=== PATIENT | male | born 1960 | race Caucasian/White ===

== ENCOUNTER 2017-01-07 07:29 | Outpatient (CLI) | payer MEDICAID, MEDICARE ==
[2017-01-07 18:17] LABS: BASOPHILS # (AUTO) 0.1 10^3/uL (0.0-0.1); BASOPHILS % (AUTO) 1.4 %; EOSINOPHILS # (AUTO) 0.2 10^3/uL (0.0-0.7); EOSINOPHILS % (AUTO) 2.7 %; HGB - HEMOGLOBIN 13.3 g/dL (14.0-18.0); MEAN CORPUSCULAR HEMOGLOBIN 32.5 pg (27.0-31.0); MEAN CORPUSCULAR HGB CONC 34.1 g/dL (32.0-36.0); MEAN CORPUSCULAR VOLUME 95.4 fL (80.0-94.0); MEAN PLATELET VOLUME 6.6 fL (7.4-11.4); MONOCYTES # (AUTO) 0.6 10^3/uL (0.0-1.0); MONOCYTES % (AUTO) 9.9 %; NEUTROPHILS # (AUTO) 3.1 10^3/uL (1.5-6.6); NUCLEATED RED BLOOD CELLS AUTO 0.1 /100WBC; RED BLOOD COUNT 4.09 10^6/uL (4.70-6.10); RED CELL DISTRIBUTION WIDTH 13.4 % (12.0-15.0)
[2017-01-07 18:52] LABS: ALBUMIN/GLOBULIN RATIO 1.9 (1.0-2.2); BILIRUBIN,TOTAL 0.7 mg/dL (0.2-1.0); BUN - BLOOD UREA NITROGEN 10 mg/dL (6-20); CALCIUM 9.4 mg/dL (8.5-10.3); CARBON DIOXIDE - CO2 25 mmol/L (21-32); CHLORIDE 96 mmol/L (101-111); CHOL/HDL RATIO 3.2 (<5.0); CHOLESTEROL 171 mg/dL; CREATININE 0.7 mg/dL (0.6-1.2); GFR - MDRD 116 (>89); GLUCOSE 110 mg/dL (70-100); HDL CHOLESTEROL 54 mg/dL; LDL/HDL RATIO 1.8 (<3.6); POTASSIUM 3.7 mmol/L (3.5-5.0); SODIUM 130 mmol/L (135-145); TOTAL PROTEIN 7.3 g/dL (6.7-8.2); TRIGLYCERIDES 99 mg/dL; VLDL CHOLESTEROL 20 mg/dL
== END 2017-01-07 07:30 | disposition home or self-care (01) ==
LOC: LAB.F 07:29
PROVIDERS: ATTEND Nurse Practitioner Family
DX: I10 Essential (primary) hypertension (principal); Z12.5 Encounter for screening for malignant neoplasm of prostate; D64.9 Anemia, unspecified
CPT/HCPCS: 36415; 80053; 80061; 85025; G0103; 84153

== ENCOUNTER 2017-08-27 09:54 | Outpatient (CLI) | payer MEDICARE ==
--- NOTE | 2017-08-27 12:45 | XRAY Report ---
DATE OF SERVICE: 08/27/2017 THREE VIEW RIGHT ANKLE: 08/27/2017 CLINICAL INDICATION: Pain. FINDINGS: AP, lateral, oblique views of the right ankle demonstrate no evidence of fracture or dislocation. The joint spaces are preserved. No effusion is present. IMPRESSION: NORMAL RIGHT ANKLE. TD: 08/27/2017 13:44
== END 2017-08-27 09:55 | disposition home or self-care (01) ==
LOC: DI.S 09:54
PROVIDERS: ATTEND Nurse Practitioner Family
DX: M25.571 Pain in right ankle and joints of right foot (principal)

== ENCOUNTER 2018-07-03 10:39 | Outpatient (CLI) | payer MEDICARE ==
[2018-07-03 18:05] LABS: EOSINOPHILS % (AUTO) 12.8 %; LYMPHOCYTES % (AUTO) 22.9 %; MEAN CORPUSCULAR HEMOGLOBIN 16.8 pg (27.0-31.0); MEAN CORPUSCULAR HGB CONC 29.6 g/dL (32.0-36.0); MEAN CORPUSCULAR VOLUME 56.8 fL (80.0-94.0); MEAN PLATELET VOLUME 6.4 fL (7.4-11.4); MONOCYTES % (AUTO) 5.9 %; NEUTROPHILS % (AUTO) 58.4 %; RED BLOOD COUNT 3.64 10^6/uL (4.70-6.10); RED CELL DISTRIBUTION WIDTH 22.4 % (12.0-15.0); WHITE BLOOD COUNT 11.7 x10^3/uL (4.8-10.8)
[2018-07-03 18:16] LABS: ALBUMIN 3.6 g/dL (3.2-5.5); ALBUMIN/GLOBULIN RATIO 0.9 (1.0-2.2); ALKALINE PHOSPHATASE 80 IU/L (42-121); ALT ALANINE AMINOTRANSFERASE 12 IU/L (10-60); AST ASPARTATE AMINOTRANSFERASE 16 IU/L (10-42); BILIRUBIN,TOTAL 0.4 mg/dL (0.2-1.0); BUN - BLOOD UREA NITROGEN 8 mg/dL (6-20); CALCIUM 9.1 mg/dL (8.5-10.3); CARBON DIOXIDE - CO2 22 mmol/L (21-32); CHLORIDE 98 mmol/L (101-111); CHOLESTEROL 124 mg/dL; CREATININE 0.5 mg/dL (0.6-1.2); GFR - MDRD 170 (>89); GLUCOSE 94 mg/dL (70-100); HDL CHOLESTEROL 41 mg/dL; LDL CHOLESTEROL,CALCULATED 70 mg/dL; LDL/HDL RATIO 1.7 (<3.6); SODIUM 129 mmol/L (135-145); TOTAL PROTEIN 7.4 g/dL (6.7-8.2); VLDL CHOLESTEROL 13 mg/dL
[2018-07-03 19:08] LABS: ABNORMAL LYMPHS % (MANUAL) 0 %
[2018-07-03 19:09] LABS: BAND NEUTROPHILS % (MANUAL) 9 %; BASOPHILS # (MANUAL) 0.1 10^3/uL (0-0.1); BASOPHILS % (MANUAL) 1 %; EOSINOPHILS # (MANUAL) 0.4 10^3/uL (0-0.7); LYMPHOCYTES # (MANUAL) 1.9 10^3/uL (1.5-3.5); LYMPHOCYTES % (MANUAL) 16 %; MONOCYTES # (MANUAL) 0.6 10^3/uL (0.0-1.0); NEUTROPHILS # (MANUAL) 8.8 10^3/uL (1.5-6.6); NEUTROPHILS % (MANUAL) 66 %
[2018-07-03 19:10] LABS: DIFFERENTIAL COMMENT MANUAL DIFFERENTIAL; PLATELET ESTIMATE, MANUAL INCREASED (>450,000) (NORMAL); PLATELET MORPHOLOGY 2+ GIANT PLATELETS (NORMAL)
[2018-07-03 19:24] LABS: HGB - HEMOGLOBIN 6.1 g/dL (14.0-18.0)
[2018-07-03 19:25] LABS: PLT - PLATELET COUNT 1004 10^3/uL (130-450)
== END 2018-07-03 10:40 | disposition home or self-care (01) ==
LOC: LAB.F 10:39
PROVIDERS: ATTEND Nurse Practitioner Family
DX: I10 Essential (primary) hypertension (principal); Z12.5 Encounter for screening for malignant neoplasm of prostate; D64.9 Anemia, unspecified
CPT/HCPCS: 36415; 80053; 80061; 82607; 85025; G0103; 83721; 84153

== ENCOUNTER 2018-07-06 11:21 | Observation (INO) | payer MEDICARE ==
[2018-07-06 12:02] LABS: BASOPHILS % (AUTO) 0.7 %; EOSINOPHILS % (AUTO) 0.9 %; LYMPHOCYTES % (AUTO) 20.2 %; MEAN CORPUSCULAR HEMOGLOBIN 17.1 pg (27.0-31.0); MEAN CORPUSCULAR HGB CONC 30.8 g/dL (32.0-36.0); MEAN CORPUSCULAR VOLUME 55.4 fL (80.0-94.0); MEAN PLATELET VOLUME 5.9 fL (7.4-11.4); NEUTROPHILS % (AUTO) 71.2 %; RED BLOOD COUNT 3.57 10^6/uL (4.70-6.10); RED CELL DISTRIBUTION WIDTH 22.1 % (12.0-15.0)
[2018-07-06 12:06] LABS: HGB - HEMOGLOBIN 6.1 g/dL (14.0-18.0); PLT - PLATELET COUNT 1080 10^3/uL (130-450)
[2018-07-06 12:07] LABS: ABNORMAL LYMPHS % (MANUAL) 0 %; BAND NEUTROPHILS % (MANUAL) 0 %
[2018-07-06 12:11] LABS: ALBUMIN 3.8 g/dL (3.2-5.5); BILIRUBIN,TOTAL 0.4 mg/dL (0.2-1.0); CALCIUM 8.9 mg/dL (8.5-10.3); CREATININE 0.6 mg/dL (0.6-1.2); TOTAL PROTEIN 7.6 g/dL (6.7-8.2)
--- NOTE | 2018-07-06 12:17 | ED Physician Documentation ---
PD HPI GI BLEED - Stated complaint Stated Complaint: BLOOD IN STOOL - Chief complaint Chief Complaint: General - History obtained from History obtained from: Patient - History of Present Illness Timing - onset: How many days ago (4-5) Timing - duration: Days (2) Timing - details: Abrupt onset (4-5 days ago he had an abrupt onset of large amount of bloody clots out for a day and then that seemed to taper down and has had just coffee grounds to dark appearance since then. He has a feeling of general weakness. He did not have any abdominal pain. He went to his primary care 4 days ago and had a blood count done. The results apparently just came back today showing severe anemia. He was referred to the ER. He complains of general weakness but no near syncope. He denies any history of GI bleeds in the past.) Associated symptoms: Maroon stool, Black/tarry stool Contributing factors: No: Sick contact, Bad food, Travel Improved by: No: Eating Worsened by: No: Eating Similar symptoms before: Has not had sx before, Other (He states he had a colonoscopy in 2014 with a polyp but otherwise normal. No history of GI bleeds in the past.) Review of Systems Constitutional: denies: Fever Nose: denies: Rhinorrhea / runny nose, Congestion Throat: denies: Sore throat Respiratory: denies: Cough GI: denies: Abdominal Pain, Nausea, Vomiting, Diarrhea Skin: denies: Rash, Lesions Neurologic: reports: Generalized weakness. denies: Focal weakness, Numbness, Near syncope PD PAST MEDICAL HISTORY - Past Medical History Cardiovascular: Hypertension Respiratory: Asthma Endocrine/Autoimmune: None GI: GERD, Ulcers : None HEENT:  Psych: Anxiety, Claustrophobia Musculoskeletal: None, Osteoarthritis Derm: None - Past Surgical History Past Surgical History: Yes Ortho: Other - Present Medications Home Medications: Ambulatory Orders Medication Instructions Recorded Confirmed Omeprazole [Prilosec] 20 mg PO 3-4XD 12/14/12 10/24/15 Amoxicillin 500 mg PO TID 10 Days tablet 07/14/13 Doxycycline [Vibramycin] 100 mg PO ONCE 07/14/13 07/14/13 amLODIPine [Norvasc] 5 mg PO DAILY 10/23/15 10/23/15 Cyclobenzaprine [Flexeril] 10 mg PO DAILY 10/24/15 10/24/15 Hydroxyzine HCl 50 mg PO DAILY 10/24/15 10/24/15 - Allergies Allergies/Adverse Reactions: Allergies Allergy/AdvReac Type Severity Reaction Status Date / Time No Known Drug Allergies Allergy Verified 07/14/13 20:54 - Social History Does the pt smoke?: Yes Smoking Status: Current every day smoker Does the pt drink ETOH?: Yes PD ED PE NORMAL - Vitals Vital signs reviewed: Yes - General General: Alert and oriented X 3, No acute distress, Well developed/nourished - HEENT HEENT: Pharynx benign - Neck Neck: Supple, no meningeal sign, No adenopathy - Cardiac Cardiac: RRR, No murmur - Abdomen Abdomen: Soft, Non tender - Rectal Rectal: Deferred - Back Back: No CVA TTP - Derm Derm: Warm and dry. No: Normal color (pale) - Neuro Neuro: Alert and oriented X 3, No motor deficit, Normal speech Eye Opening: Spontaneous Motor: Obeys Commands Verbal: Oriented GCS Score: 15 Results - Vitals Vitals: Vital Signs - 24 hr 07/06/18 11:32 Temperature 37.0 C Heart Rate 81 Respiratory 16 Rate Blood Pressure 141/69 H O2 Saturation 100 Oxygen O2 Source Room air - Labs Labs: Laboratory Tests 07/06/18 07/06/18 07/06/18 11:45 11:45 12:26 WBC 14.0 H RBC 3.57 L Hgb 6.1 L* Hct 19.8 L* MCV 55.4 L MCH 17.1 L MCHC 30.8 L RDW 22.1 H Plt Count 1080 H* MPV 5.9 L Neut # (Auto) Not Reportable Lymph # (Auto) Not Reportable [place] # (Auto) Not Reportable Eos # (Auto) Not Reportable Baso # (Auto) Not Reportable Absolute Nucleated RBC Not Reportable Total Counted 100 Band Neuts % (Manual) 0 Abnorm Lymph % (Manual) 0 Nucleated RBC % Not Reportable Neutrophils # (Manual) 10.5 H Lymphocytes # (Manual) 2.1 Monocytes # (Manual) 1.3 H Eosinophils # (Manual) 0.0 Basophils # (Manual) 0.1 Differential Comment MANUAL DIFFERENTIAL Platelet Estimate INCREASED (>450,000) Platelet Morphology 1+ LARGE PLATELETS RBC Morph Micro Appear 1+ OVALOCYTES Sodium 128 L Potassium 3.7 Chloride 97 L Carbon Dioxide 25 Anion Gap 6.0 BUN 12 Creatinine 0.6 Estimated GFR (MDRD) 138 Glucose 95 Calcium 8.9 Total Bilirubin 0.4 AST 16 ALT 12 Alkaline Phosphatase 74 Total Protein 7.6 Albumin 3.8 Globulin 3.8 Albumin/Globulin Ratio 1.0 Lipase 48 Urine Color YELLOW Urine Clarity CLEAR Urine pH 6.5 Ur Specific [place] 1.020 Urine Protein NEGATIVE Urine Glucose (UA) NEGATIVE Urine Ketones NEGATIVE Urine Occult Blood NEGATIVE Urine Nitrite NEGATIVE Urine Bilirubin NEGATIVE Urine Urobilinogen 0.2 (NORMAL) Ur Leukocyte Esterase NEGATIVE Ur Microscopic Review NOT INDICATED Urine Culture Comments NOT INDICATED PD MEDICAL DECISION MAKING - ED course Complexity details: considered differential (He has had GI bleed over the last several days with a significant drop in his blood count and is significantly anemic and will need transfusions. He does not have any abdominal pain. He has stable blood count compared to a few days ago but obviously had a significant bleed and I would be concerned for recurrence of that not knowing the source. Since he needs transfusion and evaluation for the source of the GI bleed, it seems reasonable to expedite that and watch for further bleeding and have scope scope evaluation. I talked with the hospitalist who will see the patient.), d/w patient Departure - Departure Disposition: ED Place in Observation Clinical Impression: Severe anemia GI bleeding Qualifiers: GI bleed type/associated pathology: unspecified gastrointestinal hemorrhage type Qualified Code(s): K92.2 - Gastrointestinal hemorrhage, unspecified Condition: Stable Record reviewed to determine appropriate education?: Yes
[2018-07-06 12:24] LABS: BASOPHILS # (MANUAL) 0.1 10^3/uL (0-0.1); BASOPHILS % (MANUAL) 1 %; LYMPHOCYTES # (MANUAL) 2.1 10^3/uL (1.5-3.5); LYMPHOCYTES % (MANUAL) 15 %; MONOCYTES # (MANUAL) 1.3 10^3/uL (0.0-1.0); NEUTROPHILS # (MANUAL) 10.5 10^3/uL (1.5-6.6); NEUTROPHILS % (MANUAL) 75 %
[2018-07-06 12:40] LABS: BILIRUBIN,URINE NEGATIVE (NEGATIVE); GLUCOSE, URINE (UA) NEGATIVE (NEGATIVE); KETONES,URINE (UA) NEGATIVE (NEGATIVE); LEUKOCYTE ESTERASE, URINE NEGATIVE (NEGATIVE); NITRITE,URINE NEGATIVE (NEGATIVE); OCCULT BLOOD,URINE NEGATIVE (NEGATIVE); PH,URINE 6.5 PH (5.0-7.5); PROTEIN,URINE NEGATIVE (NEGATIVE); UROBILINOGEN,URINE 0.2 (NORMAL) E.U./dL (NORMAL)
[2018-07-06 12:41] LABS: CLARITY,URINE CLEAR (CLEAR)
[2018-07-06] MEDS ORDERED: ONDANSETRON ODT 4 MG TABLET TL PRN (12:58)
[2018-07-06] MEDS ORDERED: ONDANSETRON 4 MG/2 ML VIAL IVP PRN (12:58)
[2018-07-06 13:13] LABS: DIFFERENTIAL COMMENT MANUAL DIFFERENTIAL; PLATELET ESTIMATE, MANUAL INCREASED (>450,000) (NORMAL); PLATELET MORPHOLOGY 1+ LARGE PLATELETS (NORMAL)
[2018-07-06 13:50] LABS: MEAN RETIC VALUE 101.7; RED BLOOD COUNT 3.6 10^6/uL (4.70-6.10)
[2018-07-06 13:59] LABS: % IRON SATURATION 2 % (20-50); IRON 9 ug/dL (45-182); TOTAL IRON BINDING CAPACITY 449 ug/dL (250-450); TRANSFERRIN 321 mg/dL (180-329)
[2018-07-06 14:22] LABS: INR 1.2 (0.8-1.2); PT - PROTHROMBIN TIME 13.4 secs (9.9-12.6)
[2018-07-06] MEDS ORDERED: FERRIC GLUCONATE 62.5 MG/5 ML VIAL IVP ONE ×2 (14:26→22:00)
[2018-07-06] MEDS ORDERED: ALBUTEROL NEB 2.5 MG/3 ML INH PRN (14:34)
--- NOTE | 2018-07-06 14:36 | HISTORY & PHYSICAL EXAMINATION ---
Chief Complaint - Chief Complaint Chief Complaint: GI rectal bleeding History of Present Illness - History of Present Illness HPI Comment/Other: Mr. Azul is 57-yrs-old male with a PMH significant for HTN, gastric ulcer, Asthma, osteoarthritis, current heavy cigarette smoker, chronic hyponatremia, who present ER for complains of GI rectal bleeding. Pt report four days ago he suddenly developed GI rectal bleeding. He report it was fresh blood and "quite a little bit." He report has hx of gastric ulcer and he continue to take Prilosec. He denies alcohol drink, any blood thinner. He state he did not aspirin as well. He report he had colonoscopy a few years ago and "it was fine, nothing is wrong." he state he did not have any symptoms after he had GI bleeding. He did not feel dizziness, palpitation, fainting, lightheaded. He denies chest pain, fever, chill, cough, shortness of breath, headache, abdominal pain, dysuria, and hemtouria. He report he still smokes cigarette about one pack per day and asks Nicotine Patch. His HGB is 6.1 in ER, plt is 1080, WBC is 14, Na is 128, other lab value are unremarkable. Pt is afebrile, hemodynamic stable. pt is admitted in observation unit for evaluation and treatment of GI rectal bleeding History - Past Medical History Cardiovascular: reports: Hypertension Respiratory: reports: Asthma Neuro: reports: None Endocrine/Autoimmune: reports: None GI: reports: GERD, Ulcers : reports: None HEENT: reports: None Psych: reports: Anxiety, Claustrophobia Musculoskeletal: reports: Osteoarthritis Derm: reports: None MRSA Hx?: No - Past Surgical History General: reports: Colonoscopy, EGD Ortho: reports: Other - Family & Social History Family History: Mother: , Cancer, Father: , CAD Family History Comment/Other: pt report he is single without child. he is living at [place]. Social History Notes: pt report he is a heavy current cigarette smoker. he denies alcohol and drug problem - POLST Patient has POLST: No Meds/Allgy - Home Medications Home Medications: Ambulatory Orders Medication Instructions Recorded Confirmed Omeprazole [Prilosec] 20 mg PO DAILY 12/14/12 10/24/15 amLODIPine [Norvasc] 5 mg PO DAILY 10/23/15 10/23/15 Cyclobenzaprine [Flexeril] 10 mg PO DAILY 10/24/15 10/24/15 Hydroxyzine HCl 50 mg PO DAILY 10/24/15 10/24/15 - Allergies Allergies/Adverse Reactions: Allergies Allergy/AdvReac Type Severity Reaction Status Date / Time No Known Drug Allergies Allergy Verified 07/14/13 20:54 Review of Systems - Constitutional Constitutional: denies: Fatigue, Fever, Chills, Malaise, Weakness, Poor appetite, Diaphoresis, Night sweats - Eyes Eyes: denies: Pain, Irritation, Amaurosis, Blurred vision, Spots in vision, Field loss, Vision loss, Dipolpia - Ears, Nose & Throat Ears, Nose & Throat: denies: Ear pain, Hearing loss, Hearing aids, Tinnitus, Vertigo, Nasal pain, Nasal discharge, Nosebleeds, Nasal obstruction, Nasal congestion, Postnasal drainage, Dentures, Sore throat, Hoarseness - Cardiovascular Cariovascular: denies: Irregular heart rate, Palpitations, Chest pain, Edema, Lightheadedness, Syncope, Exertional dyspnea, Decr. exercise tolerance - Respiratory Respiratory: denies: Cough, Sputum production, Wheezing, Snoring, Hemoptysis, Orthopnea, SOB at rest, SOB with exertion, Apnea - Gastrointestinal Gastrointestinal: reports: Rectal bleeding. denies: Abdominal pain, Abdominal distention, Constipation, Diarrhea, Change in bowel habits, Black stools, Bloody stools, Nausea, Vomiting, Bile emesis, David blood emesis, Coffee grounds emesis, Reflux/heartburn - Genitourinary Genitourinary: denies: Dysuria, Frequency, Urgency, Hematuria, Incontinence, Flank pain, Nocturia, Urethral discharge - Musculoskeletal Musculoskeletal: denies: Muscle pain, Back pain, Muscle aches, Stiffness, Limited range of motion, Muscle weakness, Gout, Joint pain - Integumentary Integumentary: denies: Rash, Lesions, Lumps, Acne, Pigment changes - Neurological Neurological: denies: General weakness, Focal weakness, Headache, Dizziness, Numbness, Memory problems, Pre-existing deficit, Abnormal gait, Seizures, Inc oordination, Slurred speech - Psychiatric Psychiatric: denies: Depression, Anxiety, Suicidal, Delusions, Hallucinations, Homicidal - Endocrine Endocrine: denies: Polyuria, Polydypsia, Polyphagia, Intolerance to cold - Hematologic/Lymphatic Hematologic/Lymphatic: reports: Anemia. denies: Bruising, Petechiae, Blood clots, Lymphadenopathy, Bleeding tendencies Prior Level of Functionality: independent Exam - Vital Signs Reviewed Vital Signs: Yes Vital Signs: Vital Signs x48h Temp Pulse Pulse Resp BP BP Pulse Ox 07/06/18 14:30 36.8 C 69 18 123/73 07/06/18 13:42 36.3 C L 71 18 131/65 H 99 07/06/18 13:30 80 18 140/70 H 99 07/06/18 11:32 37.0 C 81 16 141/69 H 100 - Physical Exam General Appearance: positive: No acute distress, Alert. negative: Lethargic Eyes Bilateral: positive: Normal inspection, PERRL, No lid inflammation, Conjunctivae nml ENT: positive: ENT inspection nml, Pharynx nml, No signs of dehydration. negative: Purulent nasal drainage, Pharyngeal erythema, Oral lesions Neck: positive: Nml inspection, Thyroid nml, No JVD, Trachea midline. negative: Thyromegaly, Lymphadenopathy (R), Lymphadenopathy (L), Stiff neck Respiratory: positive: Chest non-tender, No respiratory distress, Breath sounds nml. negative: Wheezes, Rales, Rhonchi Cardiovascular: positive: Regular rate & rhythm, No murmur, No gallop. negative: Irregularly irregular, Extrasystoles, Tachycardia, Bradycardia, JVD present, Systolic murmur, Diastolic murmur Peripheral Pulses: positive: 2+ Abdomen: negative: Non-tender, No organomegaly, Nml bowel sounds, No distention, Tenderness, Guarding, Rebound Back: positive: Nml inspection. negative: CVA tenderness (R), CVA tenderness (L) Skin: positive: Color nml, No rash, Warm, Dry. negative: Cyanosis, Diaphoresis, Pallor Extremities: positive: Non-tender, Full ROM, Nml appearance. negative: Calf tenderness, Joint swelling, Ashlee's sign/cords Neurologic/Psychiatric: positive: Oriented x3, Motor nml, Sensation nml, Mood/affect nml. negative: Weakness, Sensory loss, Facial droop, Slurred/abnml speech, Depressed mood/affect Sepsis Event Note (H) - Evaluation Current Stage of Sepsis: Ruled out Conclusion/Plan - Problem List (1) GI bleeding Conclusion/Plan: fresh rectal bleed with hx of gastric ulcer consult with GI surgeon H&H NPO after middle IVF of NS Qualifiers: GI bleed type/associated pathology: unspecified gastrointestinal hemorrhage type Qualified Code(s): K92.2 - Gastrointestinal hemorrhage, unspecified (2) Severe anemia Conclusion/Plan: pt's HGB is 6.1, it is likely from his recent GI bleeding. Pt's MCV is only 55. test Iron study transfusion of 2 unit of blood H&H, lab monitor follow up GI surgeon to have EGD on tomorrow. (3) Hx of gastric ulcer Conclusion/Plan: pt has hx of gastric ulcer, he continue to have Prilosec PO order Protonic Bid IV followup surgeon on tomorrow to have EGD (4) HTN (hypertension) Conclusion/Plan: pt's BP is stable now, will resume home meds after reconcile vital monitor (5) Hyponatremia Conclusion/Plan: pt's Na is 128 today, pt has chronic hyponatremia start IVF of NS lab monitor (6) Thrombocythemia Conclusion/Plan: pt has over 1 million Plt and elevated WBC. Unknown etiology. Thrombocythemia can cause bleeding as well. check [id number] mutation, which can cause myeloproliferative disease, and cause significant elevated Plt will followup US of abdomen to check spleen status if pt continue to have abnormal plt lab monitor, H&H (7) Full code status Conclusion/Plan: pt request full code - Lab Results Fish Bones: 07/06/18 11:45 07/06/18 11:45 Core Measures - Anticipated LOS I expect patient to be DC'd or transferred within 96 hours.: Yes - DVT/VTE - Prophylaxis VTE/DVT Device ordered at admit?: Yes VTE/DVT Prophylaxis med ordered at admit?: Yes
[2018-07-06] MEDS: SODIUM CHLORIDE 0.9% 1,000 ML IV SCH ×2 (15:08→19:56)
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
[2018-07-06] MEDS ORDERED: FERRIC GLUCONATE 125 MG in SODIUM CHLORIDE 0.9% 100ML 100 ML IV ONE (16:00)
[2018-07-06] MEDS: SODIUM CHLORIDE FLUSH 0.9% 10 ML SYRINGE IVP SCH (17:29)
[2018-07-06] MEDS: SODIUM CHLORIDE FLUSH 0.9% 10 ML SYRINGE IVP PRN ×2 (18:02→20:52)
[2018-07-06 20:20] LABS: BASOPHILS % (AUTO) 0.9 %; HGB - HEMOGLOBIN 8.3 g/dL (14.0-18.0); LYMPHOCYTES % (AUTO) 25.3 %; MEAN CORPUSCULAR HEMOGLOBIN 19.2 pg (27.0-31.0); MEAN CORPUSCULAR HGB CONC 29.8 g/dL (32.0-36.0); MEAN CORPUSCULAR VOLUME 64.5 fL (80.0-94.0); MEAN PLATELET VOLUME 5.9 fL (7.4-11.4); MONOCYTES % (AUTO) 7.5 %; NEUTROPHILS % (AUTO) 65.3 %; RED BLOOD COUNT 4.29 10^6/uL (4.70-6.10); RED CELL DISTRIBUTION WIDTH 30.6 % (12.0-15.0); WHITE BLOOD COUNT 14.2 x10^3/uL (4.8-10.8)
[2018-07-06 20:23] LABS: PLT - PLATELET COUNT 928 10^3/uL (130-450)
[2018-07-06 20:24] LABS: ABNORMAL LYMPHS % (MANUAL) 0 %; BAND NEUTROPHILS % (MANUAL) 0 %
[2018-07-06 20:43] LABS: EOSINOPHILS # (MANUAL) 0.6 10^3/uL (0-0.7); LYMPHOCYTES # (MANUAL) 2.6 10^3/uL (1.5-3.5); LYMPHOCYTES % (MANUAL) 18 %; MONOCYTES # (MANUAL) 1.3 10^3/uL (0.0-1.0); NEUTROPHILS # (MANUAL) 9.8 10^3/uL (1.5-6.6); NEUTROPHILS % (MANUAL) 69 %
[2018-07-06 20:44] LABS: DIFFERENTIAL COMMENT MANUAL DIFFERENTIAL; PLATELET ESTIMATE, MANUAL INCREASED (>450,000) (NORMAL); PLATELET MORPHOLOGY NORMAL APPEARANCE (NORMAL)
[2018-07-06] MEDS: ACETAMINOPHEN 325 MG TABLET PO PRN (20:51)
[2018-07-06] MEDS: PANTOPRAZOLE 40 MG VIAL IVP SCH (20:52)
[2018-07-06] MEDS: NICOTINE 21 MG PATCH TOP SCH (21:42)
[2018-07-06] MEDS ORDERED: ZOLPIDEM 5 MG TABLET PO PRN (21:49)
[2018-07-06 23:06] LABS: HGB - HEMOGLOBIN 7.6 g/dL (14.0-18.0)
[2018-07-07] MEDS: ACETAMINOPHEN 325 MG TABLET PO PRN ×2 (00:59→06:37)
[2018-07-07 02:29] LABS: BASOPHILS # (AUTO) 0.1 10^3/uL (0.0-0.1); BASOPHILS % (AUTO) 0.9 %; EOSINOPHILS # (AUTO) 0.2 10^3/uL (0.0-0.7); EOSINOPHILS % (AUTO) 1.9 %; HGB - HEMOGLOBIN 7.8 g/dL (14.0-18.0); LYMPHOCYTES % (AUTO) 22.8 %; MEAN CORPUSCULAR HEMOGLOBIN 19.8 pg (27.0-31.0); MEAN CORPUSCULAR HGB CONC 31.7 g/dL (32.0-36.0); MEAN CORPUSCULAR VOLUME 62.4 fL (80.0-94.0); MEAN PLATELET VOLUME 5.8 fL (7.4-11.4); MONOCYTES % (AUTO) 7.8 %; NEUTROPHILS # (AUTO) 8.6 10^3/uL (1.5-6.6); NEUTROPHILS % (AUTO) 66.6 %; RED BLOOD COUNT 3.95 10^6/uL (4.70-6.10)
[2018-07-07 02:32] LABS: PLT - PLATELET COUNT 800 10^3/uL (130-450)
[2018-07-07 03:21] LABS: PLATELET ESTIMATE, MANUAL INCREASED (>450,000) (NORMAL); PLATELET MORPHOLOGY NORMAL APPEARANCE (NORMAL)
[2018-07-07] MEDS: SODIUM CHLORIDE 0.9% 1,000 ML IV SCH ×2 (06:37→11:28)
[2018-07-07] MEDS: SODIUM CHLORIDE FLUSH 0.9% 10 ML SYRINGE IVP SCH ×2 (06:40→09:12)
[2018-07-07 06:45] LABS: BASOPHILS # (AUTO) 0.1 10^3/uL (0.0-0.1); EOSINOPHILS # (AUTO) 0.2 10^3/uL (0.0-0.7); EOSINOPHILS % (AUTO) 1.7 %; LYMPHOCYTES # (AUTO) 2.8 10^3/uL (1.5-3.5); LYMPHOCYTES % (AUTO) 22.5 %; MEAN CORPUSCULAR HEMOGLOBIN 19.7 pg (27.0-31.0); MEAN CORPUSCULAR HGB CONC 30.8 g/dL (32.0-36.0); MEAN CORPUSCULAR VOLUME 63.8 fL (80.0-94.0); MEAN PLATELET VOLUME 5.8 fL (7.4-11.4); MONOCYTES % (AUTO) 7.7 %; NEUTROPHILS # (AUTO) 8.3 10^3/uL (1.5-6.6); NEUTROPHILS % (AUTO) 67.1 %; RED BLOOD COUNT 4.08 10^6/uL (4.70-6.10); RED CELL DISTRIBUTION WIDTH 30.1 % (12.0-15.0); WHITE BLOOD COUNT 12.4 x10^3/uL (4.8-10.8)
[2018-07-07 06:47] LABS: PLT - PLATELET COUNT 829 10^3/uL (130-450)
[2018-07-07 06:52] LABS: ALBUMIN 3.1 g/dL (3.2-5.5); ALBUMIN/GLOBULIN RATIO 0.9 (1.0-2.2); BILIRUBIN,TOTAL 0.8 mg/dL (0.2-1.0); CREATININE 0.5 mg/dL (0.6-1.2); TOTAL PROTEIN 6.4 g/dL (6.7-8.2)
[2018-07-07] MEDS ORDERED: PANTOPRAZOLE 40 MG VIAL IVP SCH (07:00)
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
[2018-07-07] MEDS ORDERED: LIDO GARGLE 30 ML BOTTLE ONE (08:05)
[2018-07-07] MEDS ORDERED: SODIUM CHLORIDE 0.9% 1,000 ML IV ONE (08:06)
[2018-07-07] MEDS ORDERED: LIDO GARGLE 30 ML BOTTLE PO ONE (08:09)
--- NOTE | 2018-07-07 08:11 | PROVIDER PROGRESS NOTE ---
Assessment/Plan - Problem List (1) GI bleeding Qualifiers: GI bleed type/associated pathology: unspecified gastrointestinal hemorrhage type Qualified Code(s): K92.2 - Gastrointestinal hemorrhage, unspecified Assessment/Plan: clinically stable with no evidence of active ongoing bleeding at this time. Plan: EGD this am. - Current Meds Current Meds: Current Medications Generic Name Dose Route Start Last Admin Trade Name Freq PRN Reason Stop Dose Admin Acetaminophen 650 mg 07/06/18 12:58 07/07/18 06:37 Tylenol PO 650 mg Q4HR PRN Administration Pain 1 to 4 Sodium Chloride 1,000 mls @ 100 mls/hr 07/06/18 13:00 07/07/18 06:37 Normal Saline 0.9% IV 100 mls/hr .Q10H [facility] Administration Nicotine 1 patch 07/06/18 21:10 07/06/18 21:42 Nicoderm TOP 1 patch DAILY [facility] Administration Pantoprazole Sodium 40 mg 07/06/18 21:00 07/06/18 20:52 Protonix IVP 40 mg BID [facility] Administration Sodium Chloride 10 ml 07/06/18 12:58 07/06/18 20:52 Normal Saline Flush 0.9% IVP 10 ml PRN PRN Administration NEEDED PER PROVIDER ORDERS Sodium Chloride 10 ml 07/06/18 17:00 07/07/18 06:40 Normal Saline Flush 0.9% IVP 10 ml 0100,0900,1700 [facility] Administration Zolpidem Tartrate 5 mg 07/06/18 21:49 07/06/18 22:38 Ambien PO 5 mg QPM PRN Administration Insomnia - Lab Result Fish Bone Diagrams: 07/07/18 06:37 07/07/18 06:37 - Other Other Results/Comments: appropriate rise in H/H with blood transfusion - Additional Planning Condition/Complexity: Improved Plan Discussed with:: Patient Time Spent: 15-30 minutes Subjective - Subjective Patient Reports: Resting Comfortably, No Complaints (several nl bm's overnight; no abd pain, N/V) Objective Vital Signs: Vital Signs - 24 hr 07/06/18 07/06/18 07/06/18 11:32 13:30 13:42 Temperature 37.0 C 36.3 C L Heart Rate 81 80 Heart Rate [ 71 Brachial] Respiratory 16 18 18 Rate Blood Pressure 141/69 H 140/70 H Blood Pressure [Left Brachial artery] Blood Pressure 131/65 H [Right Brachial artery] O2 Saturation 100 99 99 07/06/18 07/06/18 07/06/18 14:30 14:35 16:00 Temperature 36.8 C 36.5 C 37 C Heart Rate 69 82 Heart Rate [ 72 Brachial] Respiratory 18 19 18 Rate Blood Pressure 123/73 125/89 H Blood Pressure 131/66 H [Left Brachial artery] Blood Pressure [Right Brachial artery] O2 Saturation 100 07/06/18 07/06/18 07/06/18 16:54 17:03 17:11 Temperature 37.0 C 37.2 C 37.2 C Heart Rate 72 82 88 Heart Rate [ Brachial] Respiratory 18 18 18 Rate Blood Pressure 135/67 H 135/67 H Blood Pressure [Left Brachial artery] Blood Pressure [Right Brachial artery] O2 Saturation 100 07/06/18 07/06/18 07/06/18 17:35 20:00 20:35 Temperature 37.4 C 36.8 C Heart Rate 77 73 72 Heart Rate [ Brachial] Respiratory 18 20 18 Rate Blood Pressure 127/58 L 120/64 Blood Pressure [Left Brachial artery] Blood Pressure [Right Brachial artery] O2 Saturation 07/07/18 07/07/18 07/07/18 00:15 05:30 07:50 Temperature 36.5 C 36.3 C L 36.7 C Heart Rate Heart Rate [ 66 63 61 Brachial] Respiratory 18 16 18 Rate Blood Pressure Blood Pressure [Left Brachial artery] Blood Pressure 122/65 124/58 L 124/69 [Right Brachial artery] O2 Saturation 97 99 98 Oxygen O2 Source Room air I&O (Last 24 Hrs): Intake and Output Totals x24h 07/05/18 07/06/18 07/07/18 23:59 23:59 23:59 Intake Total 1005 985 Output Total 775 400 Balance 230 585 General: Alert, Oriented x3, Cooperative Abdomen: Soft, No tenderness, No hepatospenomegaly, No masses - Results Results: Laboratory Results WBC 12.4 x10^3/uL (4.8-10.8) H 07/07/18 06:37 RBC 4.08 10^6/uL (4.70-6.10) L 07/07/18 06:37 Hgb 8.0 g/dL (14.0-18.0) L 07/07/18 06:37 Hct 26.0 % (42.0-52.0) L 07/07/18 06:37 MCV 63.8 fL (80.0-94.0) L 07/07/18 06:37 MCH 19.7 pg (27.0-31.0) L 07/07/18 06:37 MCHC 30.8 g/dL (32.0-36.0) L 07/07/18 06:37 RDW 30.1 % (12.0-15.0) H 07/07/18 06:37 Plt Count 829 10^3/uL (130-450) H* 07/07/18 06:37 MPV 5.8 fL (7.4-11.4) L 07/07/18 06:37 Reticulocyte % (Auto) 1.96 % (0.5-2.3) 07/06/18 11:45 Neut # (Auto) 8.6 10^3/uL (1.5-6.6) H 07/07/18 02:20 Lymph # (Auto) 3.0 10^3/uL (1.5-3.5) 07/07/18 02:20 [place] # (Auto) 1.0 10^3/uL (0.0-1.0) 07/07/18 02:20 Eos # (Auto) 0.2 10^3/uL (0.0-0.7) 07/07/18 02:20 Baso # (Auto) 0.1 10^3/uL (0.0-0.1) 07/07/18 02:20 Absolute Nucleated RBC 0.00 x10^3/uL 07/07/18 02:20 Total Counted 100 07/06/18 20:13 Band Neuts % (Manual) 0 % (0-10) 07/06/18 20:13 Abnorm Lymph % (Manual) 0 % 07/06/18 20:13 Nucleated RBC % 0.0 /100WBC 07/07/18 02:20 Neutrophils # (Manual) 9.8 10^3/uL (1.5-6.6) H 07/06/18 20:13 Lymphocytes # (Manual) 2.6 10^3/uL (1.5-3.5) 07/06/18 20:13 Monocytes # (Manual) 1.3 10^3/uL (0.0-1.0) H 07/06/18 20:13 Eosinophils # (Manual) 0.6 10^3/uL (0-0.7) 07/06/18 20:13 Basophils # (Manual) 0.0 10^3/uL (0-0.1) 07/06/18 20:13 Differential Comment MANUAL DIFFERENTIAL 07/06/18 20:13 Manual Slide Review Indicated 07/07/18 06:37 Platelet Estimate INCREASED (>450,000) (NORMAL) 07/07/18 02:20 Platelet Morphology NORMAL APPEARANCE (NORMAL) 07/07/18 02:20 RBC Morph Micro Appear 1+ ANISOCYTOSIS (NORMAL) 2+ HYPOCHROMASIA (NORMAL) 1+ OVALOCYTES (NORMAL) 07/06/18 11:45 RBC Morph Micro Appear 3+ ANISOCYTOSIS (NORMAL) 3+ HYPOCHROMASIA (NORMAL) 3+ POIKILOCYTOSIS (NORMAL) 07/06/18 20:13 RBC Morph Micro Appear 3+ ANISOCYTOSIS (NORMAL) 3+ HYPOCHROMASIA (NORMAL) 3+ POIKILOCYTOSIS (NORMAL) 07/06/18 20:13 RBC Morph Micro Appear 3+ ANISOCYTOSIS (NORMAL) 3+ HYPOCHROMASIA (NORMAL) 3+ POIKILOCYTOSIS (NORMAL) 07/06/18 20:13 RBC Morph Micro Appear 3+ ANISOCYTOSIS (NORMAL) 3+ POIKILOCYTOSIS (NORMAL) 3+ HYPOCHROMASIA (NORMAL) 07/07/18 02:20 RBC Morph Micro Appear 3+ ANISOCYTOSIS (NORMAL) 3+ POIKILOCYTOSIS (NORMAL) 3+ HYPOCHROMASIA (NORMAL) 07/07/18 02:20 RBC Morph Micro Appear 3+ ANISOCYTOSIS (NORMAL) 3+ POIKILOCYTOSIS (NORMAL) 3+ HYPOCHROMASIA (NORMAL) 07/07/18 02:20 Absolute Retic 0.071 10^6/uL (0.020-0.110) 07/06/18 11:45 PT 13.4 secs (9.9-12.6) H 07/06/18 11:45 INR 1.2 (0.8-1.2) 07/06/18 11:45 Sodium 131 mmol/L (135-145) L 07/07/18 06:37 Potassium 3.5 mmol/L (3.5-5.0) 07/07/18 06:37 Chloride 101 mmol/L (101-111) 07/07/18 06:37 Carbon Dioxide 23 mmol/L (21-32) 07/07/18 06:37 Anion Gap 7.0 (6-13) 07/07/18 06:37 BUN 7 mg/dL (6-20) 07/07/18 06:37 Creatinine 0.5 mg/dL (0.6-1.2) L 07/07/18 06:37 Estimated GFR (MDRD) 170 (>89) 07/07/18 06:37 Glucose 96 mg/dL (70-100) 07/07/18 06:37 Calcium 8.0 mg/dL (8.5-10.3) L 07/07/18 06:37 Iron 9 ug/dL (45-182) L 07/06/18 11:45 TIBC 449 ug/dL (250-450) 07/06/18 11:45 % Saturation 2 % (20-50) L 07/06/18 11:45 Transferrin 321 mg/dL (180-329) 07/06/18 11:45 Ferritin 6.0 ng/mL (23.9-336.2) L 07/06/18 11:45 Total Bilirubin 0.8 mg/dL (0.2-1.0) 07/07/18 06:37 AST 15 IU/L (10-42) 07/07/18 06:37 ALT 11 IU/L (10-60) 07/07/18 06:37 Alkaline Phosphatase 77 IU/L (42-121) 07/07/18 06:37 Lactate Dehydrogenase 90 IU/L (91-225) L 07/06/18 20:13 Total Protein 6.4 g/dL (6.7-8.2) L 07/07/18 06:37 Albumin 3.1 g/dL (3.2-5.5) L 07/07/18 06:37 Globulin 3.3 g/dL (2.1-4.2) 07/07/18 06:37 Albumin/Globulin Ratio 0.9 (1.0-2.2) L 07/07/18 06:37 Lipase 48 U/L (22-51) 07/06/18 11:45 Vitamin B12 582 pg/mL (180-914) 07/06/18 11:45 Urine Color YELLOW 07/06/18 12:26 Urine Clarity CLEAR (CLEAR) 07/06/18 12:26 Urine pH 6.5 PH (5.0-7.5) 07/06/18 12:26 Ur Specific [place] 1.020 (1.002-1.030) 07/06/18 12:26 Urine Protein NEGATIVE mg/dL (NEGATIVE) 07/06/18 12:26 Urine Glucose (UA) NEGATIVE mg/dL (NEGATIVE) 07/06/18 12:26 Urine Ketones NEGATIVE mg/dL (NEGATIVE) 07/06/18 12:26 Urine Occult Blood NEGATIVE (NEGATIVE) 07/06/18 12:26 Urine Nitrite NEGATIVE (NEGATIVE) 07/06/18 12:26 Urine Bilirubin NEGATIVE (NEGATIVE) 07/06/18 12:26 Urine Urobilinogen 0.2 (NORMAL) E.U./dL (NORMAL) 07/06/18 12:26 Ur Leukocyte Esterase NEGATIVE (NEGATIVE) 07/06/18 12:26 Ur Microscopic Review NOT INDICATED 07/06/18 12:26 Urine Culture Comments NOT INDICATED 07/06/18 12:26 Blood Type O POSITIVE 07/06/18 12:47 Antibody Screen NEGATIVE 07/06/18 12:47 Crossmatch IS Only See Detail 07/06/18 12:47 - Procedures Procedures: Procedures INSPECTION OF LOWER INTESTINAL TRACT, ENDO (10/24/15) Sepsis Event Note (H) - Evaluation Current Stage of Sepsis: Ruled out ABX Reporting Has patient been on IV antibiotics over the past 48 hours?: No
[2018-07-07] MEDS ORDERED: fentaNYL 100 MCG/2 ML VIAL IVP ONE (08:15)
[2018-07-07] MEDS ORDERED: PROPOFOL 200 MG/20 ML VIAL IVP ONE (08:15)
[2018-07-07] MEDS ORDERED: LIDOCAINE-MPF 2% 5 ML VIAL IM ONE (08:15)
[2018-07-07 08:26] LABS: PLATELET ESTIMATE, MANUAL INCREASED (>450,000) (NORMAL); PLATELET MORPHOLOGY 1+ LARGE PLATELETS (NORMAL)
[2018-07-07] MEDS ORDERED: NICOTINE 21 MG PATCH TOP SCH (09:00)
[2018-07-07] MEDS ORDERED: POLYETHYLENE GLYCOL 3350 17 GM PACKET PO SCH (09:00)
[2018-07-07] MEDS ORDERED: amLODIPine 5 MG TABLET PO SCH (09:00)
[2018-07-07] MEDS: PANTOPRAZOLE 40 MG VIAL IVP SCH (09:11)
[2018-07-07] MEDS: NICOTINE 21 MG PATCH TOP SCH (09:11)
--- NOTE | 2018-07-07 09:59 | Discharge Plan ---
Discharge Plan Disposition: 01 Home, Self Care Condition: Good Diet: Regular Activity Restrictions: No Restrictions Shower Restrictions: No Driving Restrictions: No Weight Bearing: Full Weight Additional Instructions or Follow Up instructions: You were admitted for GI bleeding. You underwent an upper endoscope procedure to search for the cause. Biopsies were taken, polyps were removed, and you can expect a call from the with those results in the next 5-7 days. Please stay on your Prilosec. An abdominal CT was completed to further evaluate a cause of your low blood counts and high platelet count. You will need to follow up with GI tomorrow in the outpatient clinic to discuss today's abdominal CT results. There was a mass found near your small bowel that will likely need to be surgically taken out and this may explain why you are loosing blood. Please see your PCP within one week. No Smoking: If you smoke, Please STOP! Call for help. Follow-up with: Allie Barrientos ARNP [Primary Care Provider] -
[2018-07-07] MEDS ORDERED: IOVERSOL 320 50 ML VIAL ONE (10:00)
[2018-07-07] MEDS ORDERED: IOVERSOL 320 100 ML VIAL IVP ONE ×2 (10:00→13:14)
--- NOTE | 2018-07-07 10:04 | DISCHARGE SUMMARY ---
Discharge Summary Admit Date: 07/06/18 Discharge Date: 07/07/18 Discharging Provider: JENARO Zapata Primary Care Provider: Allie Barrientos Code Status: Attempt Resuscitation Condition at Discharge: Good Discharge Disposition: 01 Home, Self Care - DIAGNOSES Admission Diagnoses: Gastrointestinal hemorrhage, unspecified (K92.2) Anemia, unspecified (D64.9) Personal history of other diseases of the digestive system (Z87.19) Essential (primary) hypertension (I10) Hypo-osmolality and hyponatremia (E87.1) Essential (hemorrhagic) thrombocythemia (D47.3) Discharge Diagnoses with Status of Each Condition: GI bleeding (K92.2) resolved. Severe anemia (D64.9) Likely due to recent finding of intestinal mass. Hx of gastric ulcer (Z87.19) chronic, stable. HTN (hypertension) (I10) chronic, stable. Hyponatremia (E87.1) resolved. Thrombocythemia (D47.3) ongoing, stable. Polyp of esophagus (K22.8) resolved. Abdominal mass (R19.00) new on this admission, patient is to see general surgery tomorrow. Encounter for blood transfusion (Z51.89) resolved. - HPI History of Present Illness: Mr. Azul is 57-yrs-old male with a PMH significant for HTN, gastric ulcer, Asthma, osteoarthritis, current heavy cigarette smoker, chronic hyponatremia, who present ER for complains of GI rectal bleeding. Pt report four days ago he suddenly developed GI rectal bleeding. He report it was fresh blood and "quite a little bit." He report has hx of gastric ulcer and he continue to take Prilosec. He denies alcohol drink, any blood thinner. He state he did not aspirin as well. He report he had colonoscopy a few years ago and "it was fine, nothing is wrong." he state he did not have any symptoms after he had GI bleeding. He did not feel dizziness, palpitation, fainting, lightheaded. He denies chest pain, fever, chill, cough, shortness of breath, headache, abdominal pain, dysuria, and hemtouria. He report he still smokes cigarette about one pack per day and asks Nicotine Patch. His HGB is 6.1 in ER, plt is 1080, WBC is 14, Na is 128, other lab value are unremarkable. Pt is afebrile, hemodynamic stable. pt is admitted in observation unit for evaluation and treatment of GI rectal bleeding. - CONSULTS | PROCEDURES Consultations: General surgery-Angel Mcmillan MD Procedures: EGD - HOSPITAL COURSE Hospital Course: The patient was transfused with 2 units PRBCs, continued on PPI therapy, un derwent an EGD with Dr. Mcmillan which could not explain the cause of anemia. The patient then underwent an abdominal/pelvic CT which showed a mass as the most likely cause. The patient was anxious to return home and was discharged in stable condition with plans to meet with general surgery tomorrow to address this new finding. - ALLERGIES Allergies/Adverse Reactions: Allergies Allergy/AdvReac Type Severity Reaction Status Date / Time doxycycline Allergy Severe Edema Verified 07/10/18 09:32 lisinopril Allergy Severe Unknown Verified 07/10/18 09:32 trazodone Allergy Unknown Verified 07/10/18 07:17 NSAIDS (Non-Steroidal AdvReac Intermediate Gastric Verified 07/10/18 14:36 Anti-Inflamma upset aspirin AdvReac Unknown Verified 07/10/18 07:17 NAIDS AdvReac Unknown Uncoded 07/10/18 07:18 - MEDICATIONS Home Medications: Ambulatory Orders Medication Instructions Recorded Confirmed amLODIPine [Norvasc] 5 mg PO DAILY 10/23/15 07/10/18 Cyclobenzaprine [Flexeril] 5 - 10 mg PO TID PRN 10/24/15 07/10/18 Hydroxyzine HCl 50 mg PO QPM 10/24/15 07/10/18 Acetaminophen 3 - 4 tab PO PRN PRN 07/06/18 07/10/18 Omeprazole 20 mg PO BIDAC 07/10/18 07/10/18 - PHYSICAL EXAM AT DISCHARGE General Appearance: positive: No acute distress, Alert Eyes Bilateral: positive: PERRL ENT: positive: ENT inspection nml, Pharynx nml, No signs of dehydration Neck: positive: Thyroid nml, No JVD, Trachea midline Respiratory: positive: Chest non-tender, No respiratory distress, Breath sounds nml Cardiovascular: positive: Regular rate & rhythm, No gallop, Systolic murmur Peripheral Pulses: positive: 2+ Abdomen: positive: Non-tender, Nml bowel sounds Back: positive: Nml inspection Skin: positive: No rash, Warm, Dry Extremities: positive: Non-tender, Full ROM, Nml appearance, No pedal edema Neurologic/Psychiatric: positive: Oriented x3, CN's nml (2-12), Motor nml, Sensation nml, Mood/affect nml Reflexes: Bicep (R): 3+, Bicep (L): 3+ - LABS Result Diagrams: 07/07/18 06:37 07/07/18 06:37 - DIAGNOSTIC IMAGING Diagnostic Imaging Results: Final report reviewed Diagnostic Imaging Results Comments: EXAM: CT ABDOMEN AND PELVIS WITH IV CONTRAST EXAM DATE: 07/07/2018. IMPRESSION: Large mass containing gas, fluid and oral contrast in the pelvis between the bladder and the rectum. This could be a necrotic tumor or abscess. 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 - SEPSIS Current Stage of Sepsis: Ruled out - FOLLOW UP Follow Up: Disposition: Home Additional Instructions or Follow Up instructions: You were admitted for GI bleeding. You underwent an upper endoscope procedure to search for the cause. Biopsies were taken, polyps were removed, and you can expect a call from the with those results in the next 5-7 days. Please stay on your Prilosec. An abdominal CT was completed to further evaluate a cause of your low blood counts and high platelet count. You will need to follow up with GI tomorrow in the outpatient clinic to discuss today's abdominal CT results. There was a mass found near your small bowel that will likely need to be surgically taken out and this may explain why you are loosing blood. Please see your PCP within one week. - TIME SPENT Time Spent in Discharge (Minutes): 45
[2018-07-07] MEDS ORDERED: IOVERSOL 320 50 ML VIAL PO ONE (13:14)
--- NOTE | 2018-07-07 13:24 | CT Report ---
Reason: iron deficiency anemia; neg EGD; recent neg colon Procedure Date: 07/07/2018 Accession Number: [id number] / [id number] Procedure: CT - Abdomen/Pelvis W/ CPT Code: FULL RESULT: EXAM: CT ABDOMEN AND PELVIS WITH IV CONTRAST EXAM DATE: 07/07/2018. CLINICAL HISTORY: Iron deficiency anemia; neg EGD; recent neg colon. COMPARISONS: 12/14/2012.. TECHNIQUE: Routine helical CT imaging was performed through the abdomen and pelvis. IV contrast: 90 cc of Isovue 320.. Enteric contrast: Positive oral. Reconstructions: Coronal and sagittal. In accordance with CT protocol optimization, one or more of the following dose reduction techniques were utilized for this exam: automated exposure control, adjustment of mA and/or KV based on patient size, or use of iterative reconstructive technique. FINDINGS: Lung Bases: The lungs are clear. No pleural or pericardial effusion. Liver: Normal. No masses. Gallbladder/Bile Ducts: Normal. No bile duct dilatation. Spleen: Normal. Pancreas: Normal. Adrenal Glands: Normal. Kidneys: 9 mm inferior right renal cyst occurring since the prior examination. No hydronephrosis, solid mass, or urinary tract calculi. Peritoneal Cavity/Bowel: Moderate volume of feces in the colon no small bowel dilatation or bowel wall thickening. No adenopathy. No free fluid or free air. Appendix appears normal. Pelvic Organs: Large cavitary mass containing fluid, gas and oral contrast in the pelvis interposed between the urinary bladder and the rectum, 8.0 x 6.9 x 10.8 cm. It is contiguous with what appears to be separate from the urinary bladder and the rectum. 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 No adenopathy. Very small amount of free fluid. Vasculature: Atherosclerosis of the aorta and branch arteries, no aneurysm. Bones: Degenerative changes of the spine. Anterior wedging of the T12 and L1 vertebral bodies is a developmental variant. IMPRESSION: Large mass containing gas, fluid and oral contrast in the pelvis between the bladder and the rectum. This could be a necrotic tumor or abscess. 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 RADIA
[2018-07-07 15:33] VITALS: BP 139/57
--- NOTE | 2018-07-07 16:03 | XRAY Report ---
Reason: pre-operative, cough Procedure Date: 07/07/2018 Accession Number: [id number] / [id number] Procedure: XR - Chest 2 View X-Ray CPT Code: 26565 FULL RESULT: EXAM: CHEST RADIOGRAPHY. EXAM DATE: 07/07/2018 03:43 PM. CLINICAL HISTORY: Pre-operative, cough. COMPARISON: None. TECHNIQUE: 2 views. FINDINGS: Lungs/Pleura: No focal opacities evident. No pleural effusion. No pneumothorax. Normal volumes. Mediastinum: Heart and mediastinal contours are unremarkable. Other: None. IMPRESSION: Normal 2-view chest radiography. RADIA
== END 2018-07-07 15:57 | disposition home or self-care (01) ==
LOC: ED 11:21 → MS2 12:59
PROVIDERS: ADMIT Nurse Practitioner Gerontology; ATTEND Nurse Practitioner
PROC: 0DB68ZZ Excision of Stomach, Via Natural or Artificial Opening Endoscopic (ICD-10-PCS; 2018-07-07)
PROC: 0DB38ZX Excision of Lower Esophagus, Via Natural or Artificial Opening Endoscopic, Diagnostic (ICD-10-PCS; 2018-07-07)
PROC: 0DB98ZX Excision of Duodenum, Via Natural or Artificial Opening Endoscopic, Diagnostic (ICD-10-PCS; principal; 2018-07-07 08:00)
DX: D62 Acute posthemorrhagic anemia (principal); K92.1 Melena; K31.7 Polyp of stomach and duodenum; E87.1 Hypo-osmolality and hyponatremia; D47.3 Essential (hemorrhagic) thrombocythemia; K63.9 Disease of intestine, unspecified; I10 Essential (primary) hypertension; J45.909 Unspecified asthma, uncomplicated; K21.9 Gastro-esophageal reflux disease without esophagitis; F17.210 Nicotine dependence, cigarettes, uncomplicated; G89.29 Other chronic pain; M79.661 Pain in right lower leg; Z87.11 Personal history of peptic ulcer disease; Z86.010 Personal history of colon polyps; Z79.899 Other long term (current) drug therapy; Z79.82 Long term (current) use of aspirin; Z80.0 Family history of malignant neoplasm of digestive organs; Z87.828 Personal history of other (healed) physical injury and trauma
CPT/HCPCS: 36415; 36430; 43239; 71046; 74177; 80053; 81003; 81270; 82607; 82728; 83540; 83615; 83690; 84466; 85014; 85018; 85025; 85044; 85610; 86850; 86900; 86901; 86920; 96361; 96365; 96375; 99283; 99284; A9270; G0378; J2916; P9016; Q9967; 81001; 87086

== ENCOUNTER 2018-07-10 06:12 | Inpatient (IN) | payer MEDICARE ==
[2018-07-10] MEDS ORDERED: metroNIDAZOLE 500 MG/100 ML 500 MG/100 ML BAG ONE (06:31)
--- NOTE | 2018-07-10 06:54 | ANESTHESIA ---
Pre-Anesthesia VS, & Labs - Diagnosis Intra-abdominal mass - Procedure Diagnostic laparoscopy, possible open, excision intra-abdominal mass Vital Signs: Temp Pulse Resp BP Pulse Ox 37 C 78 18 126/67 98 07/10/18 06:46 07/10/18 06:46 07/10/18 06:46 07/10/18 06:46 07/10/18 06:46 Height 5 ft 6 in Body Mass Index 18.3 - NPO >8 hours Last Fluid Intake: sipsH20 with meds - Lab Results Lab results reviewed: Yes Home Medications and Allergies amLODIPine [Norvasc] 5 mg PO DAILY 10/23/15 Cyclobenzaprine [Flexeril] 10 mg PO DAILY 10/24/15 Hydroxyzine HCl 50 mg PO DAILY 10/24/15 Acetaminophen 3 - 4 tab PO PRN PRN 07/06/18 Allergies/Adverse Reactions: Allergies Allergy/AdvReac Type Severity Reaction Status Date / Time No Known Drug Allergies Allergy Verified 07/14/13 20:54 Anes History & Medical History - Anesthetic History Anesthesia Complications: reports: No previous complications Family history of Anesthesia Complications: Denies Family history of Malignant Hyperthermia: Denies - Medical History Cardiovascular: reports: Hypertension Pulmonary: reports: Asthma, COPD Gastrointestinal: reports: GERD, Ulcers, Colon polyps, Chronic diarrhea, Chronic constipation Urinary: reports: None Neuro: reports: None Musculoskeletal: reports: Osteoarthritis Endocrine/Autoimmune: reports: None Blood Disorders: reports: Anemia Skin: reports: None Smoking Status: Current every day smoker (1/2pk for 40 years) - Surgical History General: Colonoscopy, EGD Orthopedic: Other Exam General: Alert, Oriented x3, Cooperative Dental: Poor dentition (nearly all missing. front bottom teeth remain in poor condition) Mouth Openin Fingerbreadth Neck Mobility: Normal Mallampati classification: II Thyromental Distance: 4-6 cm Respiratory: Lungs clear, Normal breath sounds, No respiratory distress Cardiovascular: Regular rate Neurological: Normal speech Mental/Cognitive Status: Alert/Oriented X3 Cognitive Status: Within normal limits Plan Anesthesia Type: General Regional Block: Per Surgeon's request for Post Op pain control Consent for Procedure(s) Verified and Reviewed: Yes Code Status: Attempt Resuscitation ASA classification: 2-Mild systemic disease Is this case an emergency?: No
[2018-07-10] MEDS ORDERED: LACTATED RINGERS 1,000 ML IV ONE ×3 (07:06→14:00)
[2018-07-10] MEDS ORDERED: BUPIVACAINE 0.5%-EPI 1:200000 PF 30 ML VIAL ONE (07:21)
[2018-07-10] MEDS ORDERED: LIDOCAINE 1% 50 ML MDV ONE (07:22)
[2018-07-10 07:25] LABS: BASOPHILS # (AUTO) 0.1 10^3/uL (0.0-0.1); BASOPHILS % (AUTO) 0.7 %; EOSINOPHILS # (AUTO) 0.2 10^3/uL (0.0-0.7); EOSINOPHILS % (AUTO) 1.2 %; HGB - HEMOGLOBIN 8.6 g/dL (14.0-18.0); LYMPHOCYTES # (AUTO) 2.8 10^3/uL (1.5-3.5); LYMPHOCYTES % (AUTO) 18.8 %; MEAN CORPUSCULAR HEMOGLOBIN 20.3 pg (27.0-31.0); MEAN CORPUSCULAR HGB CONC 32.3 g/dL (32.0-36.0); MEAN CORPUSCULAR VOLUME 62.9 fL (80.0-94.0); MEAN PLATELET VOLUME 5.9 fL (7.4-11.4); MONOCYTES # (AUTO) 1.2 10^3/uL (0.0-1.0); MONOCYTES % (AUTO) 7.9 %; NEUTROPHILS # (AUTO) 10.5 10^3/uL (1.5-6.6); NEUTROPHILS % (AUTO) 71.4 %; RED BLOOD COUNT 4.24 10^6/uL (4.70-6.10); RED CELL DISTRIBUTION WIDTH 32.4 % (12.0-15.0); WHITE BLOOD COUNT 14.8 x10^3/uL (4.8-10.8)
[2018-07-10 07:36] LABS: PLT - PLATELET COUNT 977 10^3/uL (130-450)
[2018-07-10 08:22] LABS: PLATELET MORPHOLOGY 1+ LARGE PLATELETS (NORMAL)
[2018-07-10 08:23] LABS: PLATELET ESTIMATE, MANUAL INCREASED (>450,000) (NORMAL)
[2018-07-10] MEDS ORDERED: LIDOCAINE 1% 50 ML MDV SUBQ ONE (09:30)
[2018-07-10] MEDS ORDERED: BUPIVACAINE 0.5%-EPI 1:200000 PF 30 ML VIAL SUBQ ONE (09:30)
[2018-07-10] MEDS ORDERED: LABETALOL 5 MG/1 ML 20 ML MDV IV ONE (11:02)
[2018-07-10] MEDS ORDERED: ONDANSETRON 4 MG/2 ML VIAL IVP ONE (11:02)
[2018-07-10] MEDS ORDERED: PHENYLEPHRINE 50 MG/5 ML VIAL IV ONE (11:02)
[2018-07-10] MEDS ORDERED: HYDROmorphone 1 MG/ML CARPUJECT IVP ONE (11:02)
[2018-07-10] MEDS ORDERED: MIDAZOLAM 2 MG/2 ML VIAL IVP ONE (11:02)
[2018-07-10] MEDS ORDERED: fentaNYL 250 MCG/5 ML VIAL IVP ONE (11:02)
[2018-07-10] MEDS ORDERED: KETAMINE 500 MG/10 ML VIAL IVP ONE (11:02)
[2018-07-10] MEDS ORDERED: PROPOFOL 200 MG/20 ML VIAL IVP ONE (11:02)
[2018-07-10] MEDS ORDERED: SODIUM CHLORIDE 0.9% 10 ML VIAL IV ONE (11:02)
[2018-07-10] MEDS ORDERED: BUPIVACAINE 0.25% PF 10 ML VIAL SUBQ ONE (11:02)
[2018-07-10] MEDS ORDERED: VECURONIUM 10 MG VIAL IVP ONE (11:02)
[2018-07-10] MEDS ORDERED: DEXAMETHASONE 4 MG/ML VIAL IVP ONE (11:02)
[2018-07-10] MEDS ORDERED: ONDANSETRON 4 MG/2 ML VIAL IVP PRN ×2 (12:31→13:28)
[2018-07-10] MEDS: fentaNYL 100 MCG/2 ML VIAL ONE ×2 (12:40→12:45)
--- NOTE | 2018-07-10 12:43 | OPERATIVE REPORT ---
Operative Report - General Admit Date: 07/10/18 Procedure Date: 07/10/18 Planned Procedure: laparoscopic/possible open resection of intra-abdominal mass Pre-Op Diagnosis: cavitary intra-abdominal mass Procedure Performed: Diagnostic laparoscopy with lysis of adhesions. Exploratory laparotomy, with resection of mass, including small bowel resection. Post Op Diagnosis: cavitary intra-abdominal mass arising from the small intestine - Procedure Note Primary Surgeon: Angel Mcmillan MD FACS Secondary Surgeon: Donato White MD FACS Anesthesia Provider: Patito Marino CRNA Anesthesia Technique: General ET tube Pathology: mass including segment of distal jejunum; with sample sent in RPMI solution. IV Fluids (mL): 1,500 Estimated Blood Loss (mL): 400 Urine Output (mL): 100 Drain/Tube Type: Other (none) Complications: None
[2018-07-10] MEDS ORDERED: fent/BUPIV 2 MCG/0.125% 250 ML EP ONE (13:07)
[2018-07-10] MEDS ORDERED: NALBUPHINE 10 MG/ML AMP IVP PRN (13:28)
[2018-07-10] MEDS ORDERED: fent/BUPIV 2 MCG/0.125% 250 ML EP PRN (13:28)
[2018-07-10] MEDS ORDERED: KETOROLAC 15 MG/ML VIAL ONE (13:33)
[2018-07-10] MEDS ORDERED: ePHEDrine 50 MG/ML VIAL IVP ONE (13:38)
[2018-07-10] MEDS ORDERED: SODIUM CHLORIDE 0.9% 10 ML ONE (13:40)
--- NOTE | 2018-07-10 14:48 | OPERATIVE REPORT ---
DATE OF SERVICE: 07/10/2018 Physician: Angel Mcmillan MD PREOPERATIVE DIAGNOSIS: Cavitary intra-abdominal mass. POSTOPERATIVE DIAGNOSIS: Cavitary intraabdominal mass closure arising from the distal jejunum. PROCEDURE PERFORMED 1. Diagnostic laparoscopy with lysis of adhesions. 2. Exploratory laparotomy with resection of the cavitary intra-abdominal mass, including small bowel resection. ANESTHESIA PROVIDER: General endotracheal by Patito Marino CRNA. SURGEON: Angel Mcmillan MD FACS [employer] WORKER: Donato White MD FACS ESTIMATED BLOOD LOSS: 400 mL, replaced 1500 mL crystalloid solution. COMPLICATIONS: None. FINDINGS: Laparoscopy was notable for a mass arising from the pelvis adherent to both pelvic sidewalls and the bladder, and appearing to arise from the small intestine. The visualized portions of the liver, stomach, and remainder of small and large bowel appeared normal. At laparotomy, the tumor was seen to be smooth walled with a visible capsule, arising from the distal jejunum and densely adherent to surrounding structures in the pelvis, including the bladder anteriorly, the rectosigmoid colon posteriorly, and the pelvic sidewalls laterally. During the dissection of the mass out of the pelvis, despite deliberate care to avoid this, the cavitary lesion ruptured and contents were evacuated. 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 There was no evidence of lymphadenopathy or liver metastasis, ascites or omental implants. No peritoneal implants were noted as well. The mass itself appeared to measure approximately 12 cm in greatest dimension. INDICATIONS FOR PROCEDURE: Patient is a 57-year-old gentleman who recently presented to [facility] with profound anemia, but he had had a prior colonoscopy several years ago that was favorable. Evaluation included upper GI endoscopy, which showed evidence of Riojas's esophagus but no obvious source of blood loss. The CT scan of the abdomen/pelvis showed a cavitary lesion in the pelvis thought to be well encapsulated and arising from the small intestine. He was advised to undergo diagnostic laparoscopy with laparoscopic-assisted versus possible open resection for definitive diagnosis and local therapy. TECHNIQUE: After informed consent and preoperative preparation, including application of sequential calf compression boots and administration of 2 grams of cefoxitin and 500 mg of metronidazole intravenously, patient was taken to the operating room and was placed under general endotracheal anesthesia. Preoperative preparation also included mechanical bowel preparation. He was placed in low stirrups, and orogastric and Gallardo catheters were inserted. His abdomen was clipped and prepared with ChloraPrep solution and draped in the usual sterile fashion. A 2 cm infraumbilical midline incision was made and carried down through the layers of the abdominal wall until the peritoneum was identified and entered sharply. A 10 mm Isaak cannula was inserted and pneumoperitoneum achieved with carbon dioxide. A 10 mm 30-degree Zak telescope was inserted. Three 5 mm ports were additionally placed in right and left mid abdomen and suprapubic locations. The abdomen was explored laparoscopically with findings noted above. Attempts were made to mobilize the tumor laparoscopically by lysing adhesions between the tumor and the wall of the bladder and the pelvic sidewall; however, the tumor seemed to be fixed in the pelvis, and it was felt that conversion to an open procedure would be warranted. Therefore, instruments and cannulas were removed under direct vision, pneumoperitoneum was allowed to escape, and the incision was extended to the pubis for a full lower midline incision, carried down through the layers of the abdominal wall. Hemostasis achieved with electrocautery, the LigaSure device and suture ligatures. The abdomen was manually explored. Findings were confirmed. The mass was gently and carefully dissected free from the pelvic sidewalls and the bladder. The mass was seen to arise from a loop of jejunum. The jejunum was divided proximally and distally to the tumor with approximately 6 cm margins proximally and distally with the 75 mm linear cutting and stapling device. This allowed posterior exposure of the mass where it was seen to be adherent to the serosa of the rectosigmoid colon. This area was carefully dissected. The tumor was seen to be adherent to the serosa, but not invading into the wall of the large bowel. During mobilization of the tumor from the right pelvic sidewall, the cavity was entered, contents were evacuated, and the resection continued. The tumor was eventually completely resected and sent for pathologic evaluation. What appeared to be a residual portion of the tumor was then seen to be adherent to the serosa of the rectosigmoid junction. This was excised with electrocautery to complete the gross resection of the tumor. A morcellated sample of the tumor was placed in RPMI solution with the bulk of the tumor placed in formalin and sent to Pathology. Approximately one hour was spent mobilizing and resecting the tumor from the pelvis. After careful hemostasis had been assured, the wound was irrigated with antibiotic solution containing 1 gram of cefoxitin per liter. The small bowel resection was completed by performing an anastomosis using the 75 mm linear cutting/stapling device to create a [id number], but functional end-to-end anastomosis in the usual fashion. The mesenteric defect was reapproximated with interrupted 3-0 Vicryl sutures. The anastomosis seemed to be watertight, patent, and viable. Again, after hemostasis been assured with electrocautery and the Ligasure device, the abdominal cavity was copiously irrigated with sterile water, following which, abdominal contents returned to usual anatomic location, and the incision was closed in layers using continuous 0 Vicryl to reapproximate the peritoneum and posterior rectus sheath, followed by doubled #1 PDS for the anterior rectus sheath and midline fascia, followed by skin ria. The port sites were closed with skin ria. Dry sterile dressings were applied, anesthesia was terminated, and patient transferred to the recovery room in satisfactory condition. Sponge and needle counts were correct x2. No drains were used. TD: 07/10/2018 13:12 LONNY
[2018-07-10] MEDS: LACTATED RINGERS 1,000 ML IV SCH (14:53)
[2018-07-10] MEDS: ACETAMINOPHEN 1,000 MG/100 ML 100 ML IV SCH ×2 (14:53→21:19)
[2018-07-10] MEDS: SODIUM CHLORIDE FLUSH 0.9% 10 ML SYRINGE IVP SCH (15:45)
[2018-07-10] MEDS: PANTOPRAZOLE 40 MG TABLET PO SCH (15:45)
[2018-07-10 17:41] LABS: BASOPHILS % (AUTO) 0.1 %; LYMPHOCYTES % (AUTO) 4.3 %; MEAN CORPUSCULAR HEMOGLOBIN 19.6 pg (27.0-31.0); MEAN CORPUSCULAR HGB CONC 30.2 g/dL (32.0-36.0); MEAN PLATELET VOLUME 5.9 fL (7.4-11.4); MONOCYTES % (AUTO) 3.2 %; NEUTROPHILS % (AUTO) 92.4 %; PLT - PLATELET COUNT 796 10^3/uL (130-450); RED BLOOD COUNT 3.58 10^6/uL (4.70-6.10); RED CELL DISTRIBUTION WIDTH 31.8 % (12.0-15.0); WHITE BLOOD COUNT 20.1 x10^3/uL (4.8-10.8)
[2018-07-10 17:46] LABS: ABNORMAL LYMPHS % (MANUAL) 0 %
[2018-07-10 18:39] LABS: BAND NEUTROPHILS % (MANUAL) 18 %; LYMPHOCYTES # (MANUAL) 0.2 10^3/uL (1.5-3.5); LYMPHOCYTES % (MANUAL) 1 %; MONOCYTES # (MANUAL) 0.8 10^3/uL (0.0-1.0); NEUTROPHILS # (MANUAL) 19.1 10^3/uL (1.5-6.6); NEUTROPHILS % (MANUAL) 77 %; PLATELET MORPHOLOGY NORMAL APPEARANCE (NORMAL)
[2018-07-10 18:40] LABS: DIFFERENTIAL COMMENT MANUAL DIFFERENTIAL; PLATELET ESTIMATE, MANUAL INCREASED (>450,000) (NORMAL)
[2018-07-11] MEDS: SODIUM CHLORIDE FLUSH 0.9% 10 ML SYRINGE IVP SCH ×4 (01:29→23:59)
[2018-07-11] MEDS: KETOROLAC 15 MG/ML VIAL IVP PRN ×3 (02:59→19:43)
[2018-07-11] MEDS: SODIUM CHLORIDE FLUSH 0.9% 10 ML SYRINGE IVP PRN (02:59)
[2018-07-11] MEDS: LACTATED RINGERS 1,000 ML IV SCH (03:15)
[2018-07-11] MEDS: ACETAMINOPHEN 1,000 MG/100 ML 100 ML IV SCH ×4 (03:17→22:05)
[2018-07-11 06:33] LABS: BASOPHILS % (AUTO) 0.5 %; EOSINOPHILS % (AUTO) 0.1 %; HGB - HEMOGLOBIN 7.1 g/dL (14.0-18.0); LYMPHOCYTES % (AUTO) 9.9 %; MEAN CORPUSCULAR HEMOGLOBIN 21.2 pg (27.0-31.0); MEAN CORPUSCULAR HGB CONC 31.7 g/dL (32.0-36.0); MEAN CORPUSCULAR VOLUME 66.9 fL (80.0-94.0); MONOCYTES % (AUTO) 4.1 %; NEUTROPHILS % (AUTO) 85.4 %; PLT - PLATELET COUNT 636 10^3/uL (130-450); RED BLOOD COUNT 3.36 10^6/uL (4.70-6.10); RED CELL DISTRIBUTION WIDTH 33.4 % (12.0-15.0); WHITE BLOOD COUNT 14.4 x10^3/uL (4.8-10.8)
[2018-07-11] MEDS: PANTOPRAZOLE 40 MG TABLET PO SCH (06:33)
[2018-07-11 06:36] LABS: ABNORMAL LYMPHS % (MANUAL) 0 %
[2018-07-11 06:40] LABS: ALBUMIN 2.7 g/dL (3.2-5.5); ALBUMIN/GLOBULIN RATIO 0.9 (1.0-2.2); ALKALINE PHOSPHATASE 62 IU/L (42-121); ALT ALANINE AMINOTRANSFERASE < 10 IU/L (10-60); AST ASPARTATE AMINOTRANSFERASE 15 IU/L (10-42); BILIRUBIN,TOTAL 0.8 mg/dL (0.2-1.0); BUN - BLOOD UREA NITROGEN 13 mg/dL (6-20); CALCIUM 7.3 mg/dL (8.5-10.3); CARBON DIOXIDE - CO2 22 mmol/L (21-32); CHLORIDE 96 mmol/L (101-111); CREATININE 0.6 mg/dL (0.6-1.2); GFR - MDRD 138 (>89); GLUCOSE 121 mg/dL (70-100); SODIUM 127 mmol/L (135-145); TOTAL PROTEIN 5.6 g/dL (6.7-8.2)
[2018-07-11 06:58] LABS: BAND NEUTROPHILS % (MANUAL) 9 %; EOSINOPHILS # (MANUAL) 0.1 10^3/uL (0-0.7); LYMPHOCYTES % (MANUAL) 7 %; MONOCYTES # (MANUAL) 0.7 10^3/uL (0.0-1.0); NEUTROPHILS # (MANUAL) 12.5 10^3/uL (1.5-6.6); NEUTROPHILS % (MANUAL) 78 %
[2018-07-11 06:59] LABS: PLATELET ESTIMATE, MANUAL INCREASED (>450,000) (NORMAL)
[2018-07-11 07:00] LABS: DIFFERENTIAL COMMENT MANUAL DIFFERENTIAL
--- NOTE | 2018-07-11 09:29 | PROVIDER PROGRESS NOTE ---
Subjective - General Admit Date: 07/10/18 Procedure Date: 07/10/18 Post Op Days: 1 Procedure Performed: resection of pelvic mass - Review of Systems Wound/Incisions: positive: Healing well, Dressing dry and intact, No drainage General: positive: Appetite (returning), Other. negative: Fever, Weakness HEENT: positive: No symptoms Pulmonary: positive: No symptoms Cardiovascular: positive: No symptoms Gastrointestinal: positive: Abdominal pain (c/o moderate incisional pain), Other (no bm's yet). negative: Nausea, Vomiting, Flatus Genitourinary: positive: No symptoms Musculoskeletal: positive: Shoulder pain (bilateral) Skin: positive: No symptoms Psychiatric: positive: No symptoms Objective - Patient Data Reviewed Vital Signs: Yes Vital Signs: Vital Signs x48h Temp Pulse Resp BP Pulse Ox 07/11/18 07:47 36.6 C 68 14 107/53 L 96 07/11/18 05:18 18 102/48 L 94 07/11/18 03:51 36.7 C 62 18 97/63 95 07/11/18 02:00 36.2 C L 62 18 101/56 L 96 Weight: Weight 07/09/18 07/10/18 07/11/18 23:59 23:59 23:59 Weight (kg) 55.7 kg Intake & Output: Intake and Output Totals x24h 07/09/18 07/10/18 07/11/18 23:59 23:59 23:59 Intake Total 2700 1300 Output Total 760 200 Balance 1940 1100 u.o. ok - Lab Results Lab Results: 07/11/18 06:06 07/11/18 06:06 Other Lab Results: Lab Results x24hrs 07/11/18 07/11/18 07/10/18 Range/Units 06:06 06:06 17:14 WBC 14.4 H 20.1 H (4.8-10.8) x10^3/uL RBC 3.36 L 3.58 L (4.70-6.10) 10^6/uL Hgb 7.1 L 7.0 L* (14.0-18.0) g/dL Hct 22.5 L 23.2 L (42.0-52.0) % MCV 66.9 L 65.0 L (80.0-94.0) fL MCH 21.2 L 19.6 L (27.0-31.0) pg MCHC 31.7 L 30.2 L (32.0-36.0) g/dL RDW 33.4 H 31.8 H (12.0-15.0) % Plt Count 636 H 796 H (130-450) 10^3/uL MPV 6.0 L 5.9 L (7.4-11.4) fL Neut # (Auto) Not Reportable Not Reportable Lymph # (Auto) Not Reportable Not Reportable [place] # (Auto) Not Reportable Not Reportable Eos # (Auto) Not Reportable Not Reportable Baso # (Auto) Not Reportable Not Reportable Absolute Nucleated RBC Not Reportable Not Reportable Total Counted 100 100 Band Neuts % (Manual) 9 18 H (0 - 10) % Abnorm Lymph % (Manual) 0 0 % Nucleated RBC % Not Reportable Not Reportable Neutrophils # (Manual) 12.5 H 19.1 H (1.5-6.6) 10^3/uL Lymphocytes # (Manual) 1.0 L 0.2 L (1.5-3.5) 10^3/uL Monocytes # (Manual) 0.7 0.8 (0.0-1.0) 10^3/uL Eosinophils # (Manual) 0.1 0.0 (0-0.7) 10^3/uL Basophils # (Manual) 0.0 0.0 (0-0.1) 10^3/uL Differential Comment MANUAL DIFFERENTIAL MANUAL DIFFERENTIAL Manual Slide Review Indicated WBC Morphology NORMAL APPEARANCE (NORMAL) Platelet Estimate INCREASED (>450,000) INCREASED (>450,000) (NORMAL) Platelet Morphology NORMAL APPEARANCE (NORMAL) RBC Morph Micro Appear 1+ SCHISTOCYTES 1+ SCHISTOCYTES (NORMAL) Sodium 127 L (135-145) mmol/L Potassium 3.4 L (3.5-5.0) mmol/L Chloride 96 L (101-111) mmol/L Carbon Dioxide 22 (21-32) mmol/L Anion Gap 9.0 (6-13) BUN 13 (6-20) mg/dL Creatinine 0.6 (0.6-1.2) mg/dL Estimated GFR (MDRD) 138 (>89) Glucose 121 H (70-100) mg/dL Calcium 7.3 L (8.5-10.3) mg/dL Total Bilirubin 0.8 (0.2-1.0) mg/dL AST 15 (10-42) IU/L ALT < 10 L (10-60) IU/L Alkaline Phosphatase 62 (42-121) IU/L Total Protein 5.6 L (6.7-8.2) g/dL Albumin 2.7 L (3.2-5.5) g/dL Globulin 2.9 (2.1-4.2) g/dL Albumin/Globulin Ratio 0.9 L (1.0-2.2) Blood Type Antibody Screen Crossmatch IS Only 07/10/18 Range/Units 08:25 WBC (4.8-10.8) x10^3/uL RBC (4.70-6.10) 10^6/uL Hgb (14.0-18.0) g/dL Hct (42.0-52.0) % MCV (80.0-94.0) fL MCH (27.0-31.0) pg MCHC (32.0-36.0) g/dL RDW (12.0-15.0) % Plt Count (130-450) 10^3/uL MPV (7.4-11.4) fL Neut # (Auto) Lymph # (Auto) [place] # (Auto) Eos # (Auto) Baso # (Auto) Absolute Nucleated RBC Total Counted Band Neuts % (Manual) (0 - 10) % Abnorm Lymph % (Manual) % Nucleated RBC % Neutrophils # (Manual) (1.5-6.6) 10^3/uL Lymphocytes # (Manual) (1.5-3.5) 10^3/uL Monocytes # (Manual) (0.0-1.0) 10^3/uL Eosinophils # (Manual) (0-0.7) 10^3/uL Basophils # (Manual) (0-0.1) 10^3/uL Differential Comment Manual Slide Review WBC Morphology (NORMAL) Platelet Estimate (NORMAL) Platelet Morphology (NORMAL) RBC Morph Micro Appear (NORMAL) Sodium (135-145) mmol/L Potassium (3.5-5.0) mmol/L Chloride (101-111) mmol/L Carbon Dioxide (21-32) mmol/L Anion Gap (6-13) BUN (6-20) mg/dL Creatinine (0.6-1.2) mg/dL Estimated GFR (MDRD) (>89) Glucose (70-100) mg/dL Calcium (8.5-10.3) mg/dL Total Bilirubin (0.2-1.0) mg/dL AST (10-42) IU/L ALT (10-60) IU/L Alkaline Phosphatase (42-121) IU/L Total Protein (6.7-8.2) g/dL Albumin (3.2-5.5) g/dL Globulin (2.1-4.2) g/dL Albumin/Globulin Ratio (1.0-2.2) Blood Type Cancelled Antibody Screen Cancelled Crossmatch IS Only See Detail Labs today after transfusion of 1 unit PRBCs last night. - Current Medications Current Medications: Current Medications Generic Name Dose Route Start Last Admin Trade Name Freq PRN Reason Stop Dose Admin Acetaminophen 100 mls @ 400 mls/hr 07/10/18 15:00 07/11/18 03:32 Ofirmev IV Infused Q6H BRAYDEN Infusion Fentanyl/Bupivacaine/Sodium Chlor 250 mls @ 0 mls/hr 07/10/18 13:28 07/10/18 15:33 Fent/Bupiv 2 Mcg/0.125% EP 6 mls/hr .Q0M PRN Administration PAIN Protocol Per Protocol Ketorolac Tromethamine 15 mg 07/10/18 12:31 07/11/18 02:59 Toradol Inj (15mg) IVP 07/15/18 12:30 15 mg Q6H PRN Administration PAIN Pantoprazole Sodium 40 mg 07/10/18 16:30 07/11/18 06:33 Protonix PO 40 mg QDAC BRAYDEN Administration Sodium Chloride 10 ml 07/10/18 17:00 07/11/18 01:29 Normal Saline Flush 0.9% IVP 10 ml 0100,0900,1700 BRAYDEN Administration Sodium Chloride 10 ml 07/10/18 12:31 07/11/18 02:59 Normal Saline Flush 0.9% IVP 10 ml PRN PRN Administration NEEDED PER PROVIDER ORDERS - Physical Exam Wound/Incisions: positive: Dressing dry and intact (minimal sanguinous discharge on dressing) General Appearance: positive: Alert, Mild distress (c/o shoulder pain) Eyes Bilateral: positive: Conjunctivae nml, No scleral icterus ENT: positive: ENT inspection nml, Pharynx nml, No signs of dehydration Neck: positive: Nml inspection, No JVD Respiratory: positive: Chest non-tender, No respiratory distress, Breath sounds nml Cardiovascular: positive: Regular rate & rhythm, No murmur, No gallop Abdomen: positive: Nml bowel sounds, No distention, Tenderness (expected lam- incisional tenderness) Skin: positive: Color nml, No rash, Warm, Dry Extremities: positive: Non-tender, Nml appearance, No pedal edema. negative: Calf tenderness Neurologic/Psychiatric: positive: Oriented x3 Comments/Other: Alert, tolerating clear liquids well with no N/V. No flatus/stool yet. ABX Reporting Has patient been on IV antibiotics over the past 48 hours?: No Impression/Plan - Problem List Problem List: PO Day 1 s/p resection of pelvic cavitary mass arising from the jejunum; doing well overall. Plan: d/c IVF, sands; advance diet, oob more, pulmonary toilet, adjust epidural dosing for better analgesia.
[2018-07-11] MEDS: ENOXAPARIN 40 MG/0.4 ML SYRINGE SUBQ SCH (09:52)
[2018-07-11] MEDS: fent/BUPIV 2 MCG/0.125% 250 ML EP PRN (10:36)
--- NOTE | 2018-07-11 10:39 | ANESTHESIA POST OP EVALUATION ---
Anesthesia Post Eval - Post Anesthesia Eval CV Function Including HR & BP: positive: Stable Pain Control: positive: Additional Therapies Ordered Nausea & Vomiting: positive: Negative Mental Status: positive: Appropriate Anesthesia Complications: positive: None (the patient has had pain requiring additional pain meds. Dr Mcmillan requestsd increasing the rate of the epidural. the rate was increased from 6ml/hr to 12ml/hr and the hour limit was increased from 26ml/hr to 34ml/hr.)
[2018-07-12] MEDS: fent/BUPIV 2 MCG/0.125% 250 ML EP PRN ×2 (02:49→21:33)
[2018-07-12] MEDS: ACETAMINOPHEN 1,000 MG/100 ML 100 ML IV SCH (03:57)
[2018-07-12] MEDS: PANTOPRAZOLE 40 MG TABLET PO SCH (06:32)
[2018-07-12 06:35] LABS: BASOPHILS # (AUTO) 0.1 10^3/uL (0.0-0.1); BASOPHILS % (AUTO) 0.6 %; EOSINOPHILS # (AUTO) 0.1 10^3/uL (0.0-0.7); EOSINOPHILS % (AUTO) 0.5 %; LYMPHOCYTES % (AUTO) 8.1 %; MEAN CORPUSCULAR HEMOGLOBIN 21.3 pg (27.0-31.0); MEAN CORPUSCULAR HGB CONC 31.8 g/dL (32.0-36.0); MEAN CORPUSCULAR VOLUME 66.9 fL (80.0-94.0); MEAN PLATELET VOLUME 6.3 fL (7.4-11.4); MONOCYTES # (AUTO) 0.7 10^3/uL (0.0-1.0); MONOCYTES % (AUTO) 6.1 %; NEUTROPHILS % (AUTO) 84.7 %; PLT - PLATELET COUNT 540 10^3/uL (130-450); RED BLOOD COUNT 3.01 10^6/uL (4.70-6.10); RED CELL DISTRIBUTION WIDTH 33.3 % (12.0-15.0); WHITE BLOOD COUNT 11.8 x10^3/uL (4.8-10.8)
[2018-07-12 06:40] LABS: ALBUMIN 2.6 g/dL (3.2-5.5); ALBUMIN/GLOBULIN RATIO 0.9 (1.0-2.2); BILIRUBIN,TOTAL 0.5 mg/dL (0.2-1.0); CREATININE 0.7 mg/dL (0.6-1.2); TOTAL PROTEIN 5.5 g/dL (6.7-8.2)
[2018-07-12 06:41] LABS: HGB - HEMOGLOBIN 6.5 g/dL (14.0-18.0)
[2018-07-12 07:04] LABS: PLATELET ESTIMATE, MANUAL INCREASED (>450,000) (NORMAL)
[2018-07-12] MEDS: ENOXAPARIN 40 MG/0.4 ML SYRINGE SUBQ SCH (09:03)
--- NOTE | 2018-07-12 09:03 | PROVIDER PROGRESS NOTE ---
Subjective - General Admit Date: 07/10/18 Procedure Date: 07/10/18 Post Op Days: 2 Procedure Performed: resection of pelvic mass - Review of Systems Wound/Incisions: positive: Dressing dry and intact, No drainage General: positive: Appetite (returning), Other. negative: Fever, Weakness HEENT: positive: No symptoms Pulmonary: positive: No symptoms Cardiovascular: positive: No symptoms Gastrointestinal: positive: Abdominal pain (c/o mild/moderate incisional pain, improving with epidural dose adjustment yesterday), Flatus, Diarrhea (several loose nonbloody stools overnight). negative: Nausea, Vomiting Genitourinary: positive: No symptoms, Other (voiding well with snads out) Musculoskeletal: positive: Shoulder pain (now right sided only, improving;hx injury there in past) Skin: positive: No symptoms Psychiatric: positive: No symptoms - Other Other Information/Narrative: feeling better overall; no n/v; tolerating liquid diet well, voiding well, limited time OOB so far Objective - Patient Data Reviewed Vital Signs: Yes Vital Signs: Vital Signs x48h Temp Pulse Pulse Resp BP BP 07/12/18 07:59 37.0 C 79 14 102/53 L 07/12/18 07:40 37.1 C 77 16 110/53 L 07/12/18 04:45 84 117/57 L Weight: Weight 07/10/18 07/11/18 07/12/18 23:59 23:59 23:59 Weight (kg) 55.7 kg 55.7 kg 57 kg Intake & Output: Intake and Output Totals x24h 07/10/18 07/11/18 07/12/18 23:59 23:59 23:59 Intake Total 2700 4270 340 Output Total 760 650 Balance 1940 3620 340 - Lab Results Lab Results: 07/12/18 05:47 07/12/18 05:47 Other Lab Results: Lab Results x24hrs 07/12/18 07/12/18 07/10/18 Range/Units 05:47 05:47 08:25 WBC 11.8 H (4.8-10.8) x10^3/uL RBC 3.01 L (4.70-6.10) 10^6/uL Hgb 6.5 L* (14.0-18.0) g/dL Hct 20.6 L (42.0-52.0) % MCV 66.9 L (80.0-94.0) fL MCH 21.3 L (27.0-31.0) pg MCHC 31.8 L (32.0-36.0) g/dL RDW 33.3 H (12.0-15.0) % Plt Count 540 H (130-450) 10^3/uL MPV 6.3 L (7.4-11.4) fL Neut # (Auto) 10.0 H (1.5-6.6) 10^3/uL Lymph # (Auto) 1.0 L (1.5-3.5) 10^3/uL [place] # (Auto) 0.7 (0.0-1.0) 10^3/uL Eos # (Auto) 0.1 (0.0-0.7) 10^3/uL Baso # (Auto) 0.1 (0.0-0.1) 10^3/uL Absolute Nucleated RBC 0.00 x10^3/uL Nucleated RBC % 0.0 /100WBC Manual Slide Review Indicated Platelet Estimate INCREASED (>450,000) (NORMAL) RBC Morph Micro Appear 1+ SCHISTOCYTES (NORMAL) Sodium 125 L (135-145) mmol/L Potassium 3.3 L (3.5-5.0) mmol/L Chloride 96 L (101-111) mmol/L Carbon Dioxide 21 (21-32) mmol/L Anion Gap 8.0 (6-13) BUN 14 (6-20) mg/dL Creatinine 0.7 (0.6-1.2) mg/dL Estimated GFR (MDRD) 115 (>89) Glucose 124 H (70-100) mg/dL Calcium 7.0 L (8.5-10.3) mg/dL Total Bilirubin 0.5 (0.2-1.0) mg/dL AST 25 (10-42) IU/L ALT 12 (10-60) IU/L Alkaline Phosphatase 60 (42-121) IU/L Total Protein 5.5 L (6.7-8.2) g/dL Albumin 2.6 L (3.2-5.5) g/dL Globulin 2.9 (2.1-4.2) g/dL Albumin/Globulin Ratio 0.9 L (1.0-2.2) Blood Type Cancelled Antibody Screen Cancelled Crossmatch IS Only See Detail - Current Medications Current Medications: Current Medications Generic Name Dose Route Start Last Admin Trade Name Fredante PRN Reason Stop Dose Admin Enoxaparin Sodium 40 mg 07/11/18 09:00 07/11/18 09:52 Lovenox SUBQ 40 mg DAILY BRAYDEN Administration Fentanyl/Bupivacaine/Sodium Chlor 250 mls @ 0 mls/hr 07/11/18 10:32 07/12/18 02:49 Fent/Bupiv 2 Mcg/0.125% EP 12 mls/hr .Q0M PRN Administration PAIN Protocol Per Protocol Pantoprazole Sodium 40 mg 07/10/18 16:30 07/12/18 06:32 Protonix PO 40 mg QDAC BRAYDEN Administration Sodium Chloride 10 ml 07/10/18 17:00 07/11/18 23:59 Normal Saline Flush 0.9% IVP 10 ml 0100,0900,1700 BRAYDEN Administration Sodium Chloride 10 ml 07/10/18 12:31 07/11/18 02:59 Normal Saline Flush 0.9% IVP 10 ml PRN PRN Administration NEEDED PER PROVIDER ORDERS - Physical Exam Wound/Incisions: positive: Dressing dry and intact, No drainage General Appearance: positive: No acute distress, Alert Eyes Bilateral: positive: Normal inspection, No scleral icterus ENT: positive: Pharynx nml, No signs of dehydration Neck: positive: No JVD Respiratory: positive: Rales (scattered dry rales and rhonchi with mostly clear with cough), Other (bronchial breath sounds at right base) Cardiovascular: positive: Regular rate & rhythm, No murmur, No gallop Abdomen: positive: Nml bowel sounds (very active), Tenderness (mild tenderness and distention) Skin: positive: Color nml, No rash, Warm, Dry. negative: Cyanosis Extremities: positive: No pedal edema. negative: Calf tenderness Neurologic/Psychiatric: positive: Oriented x3 Comments/Other: several loose nonbloody stools; voiding clear urine; 1700 cc po yesterday (liquids). ABX Reporting Has patient been on IV antibiotics over the past 48 hours?: No Impression/Plan - Problem List Problem List: Doing well PO # 2 s/p ex lap with resection of pelvic cavitary mass arising from the jejunum of unclear etiology. Awaiting path report. Hyponatremia, likely dilutional and from excessive free water intake; plan: no free water orally; d/c all IV meds. anemia, likely due to blood loss from surgery plus chronic loss, plus dilutional; noclinical evidence of active ongoing bleeding; plan: transfuse an additional unit of PRBCs
[2018-07-12 12:02] LABS: BASOPHILS # (AUTO) 0.1 10^3/uL (0.0-0.1); BASOPHILS % (AUTO) 0.5 %; EOSINOPHILS # (AUTO) 0.1 10^3/uL (0.0-0.7); EOSINOPHILS % (AUTO) 0.4 %; HGB - HEMOGLOBIN 8.5 g/dL (14.0-18.0); LYMPHOCYTES # (AUTO) 0.8 10^3/uL (1.5-3.5); LYMPHOCYTES % (AUTO) 5.3 %; MEAN CORPUSCULAR HEMOGLOBIN 22.3 pg (27.0-31.0); MEAN CORPUSCULAR HGB CONC 32.9 g/dL (32.0-36.0); MEAN CORPUSCULAR VOLUME 67.9 fL (80.0-94.0); MEAN PLATELET VOLUME 5.9 fL (7.4-11.4); MONOCYTES # (AUTO) 0.8 10^3/uL (0.0-1.0); MONOCYTES % (AUTO) 5.3 %; NEUTROPHILS # (AUTO) 12.5 10^3/uL (1.5-6.6); NEUTROPHILS % (AUTO) 88.5 %; PLT - PLATELET COUNT 550 10^3/uL (130-450); RED CELL DISTRIBUTION WIDTH 33.1 % (12.0-15.0); WHITE BLOOD COUNT 14.2 x10^3/uL (4.8-10.8)
[2018-07-12] MEDS: SODIUM CHLORIDE FLUSH 0.9% 10 ML SYRINGE IVP SCH ×2 (12:04→18:12)
[2018-07-12] MEDS: ACETAMINOPHEN 325 MG TABLET PO SCH ×3 (12:14→22:39)
[2018-07-12] MEDS: IBUPROFEN 400 MG TABLET PO SCH ×2 (12:15→18:12)
[2018-07-12 12:19] LABS: PLATELET ESTIMATE, MANUAL INCREASED (>450,000) (NORMAL); PLATELET MORPHOLOGY NORMAL APPEARANCE (NORMAL)
--- NOTE | 2018-07-12 12:57 | ANESTHESIA POST OP EVALUATION ---
Anesthesia Post Eval - Post Anesthesia Eval CV Function Including HR & BP: positive: Stable Pain Control: positive: Adequate Nausea & Vomiting: positive: Negative Mental Status: positive: Appropriate Anesthesia Complications: positive: None (Post-op day 2. Pt sitting up in bed eating, no N/V. Appears comfortable but states pain is around a 4/10, but tolerable. Patient had his first post-op bowel movement today and suggested it has helped with abdominal discomfort. Pt able to lean forward in bed without assistance for assessment.Dressing is clean and dry with minimal tape rolling. Plan to pull epidural cath tommorrow, at least 12 hours post last Lovenox dose.)
[2018-07-12] MEDS: SODIUM CHLORIDE FLUSH 0.9% 10 ML SYRINGE IVP PRN (22:49)
[2018-07-13] MEDS: SODIUM CHLORIDE FLUSH 0.9% 10 ML SYRINGE IVP SCH ×4 (00:03→23:59)
[2018-07-13] MEDS: IBUPROFEN 400 MG TABLET PO SCH ×3 (00:03→12:26)
[2018-07-13] MEDS: SODIUM CHLORIDE FLUSH 0.9% 10 ML SYRINGE IVP PRN ×2 (00:04→10:41)
[2018-07-13] MEDS: ACETAMINOPHEN 325 MG TABLET PO SCH ×4 (03:32→20:36)
[2018-07-13 05:24] LABS: BASOPHILS % (AUTO) 0.4 %; EOSINOPHILS # (AUTO) 0.2 10^3/uL (0.0-0.7); EOSINOPHILS % (AUTO) 1.6 %; HGB - HEMOGLOBIN 7.7 g/dL (14.0-18.0); LYMPHOCYTES # (AUTO) 1.4 10^3/uL (1.5-3.5); LYMPHOCYTES % (AUTO) 11.5 %; MEAN CORPUSCULAR HEMOGLOBIN 22.1 pg (27.0-31.0); MEAN CORPUSCULAR HGB CONC 31.5 g/dL (32.0-36.0); MEAN PLATELET VOLUME 6.1 fL (7.4-11.4); MONOCYTES # (AUTO) 0.8 10^3/uL (0.0-1.0); MONOCYTES % (AUTO) 6.3 %; NEUTROPHILS # (AUTO) 10.1 10^3/uL (1.5-6.6); NEUTROPHILS % (AUTO) 80.2 %; PLT - PLATELET COUNT 487 10^3/uL (130-450); RED BLOOD COUNT 3.48 10^6/uL (4.70-6.10); RED CELL DISTRIBUTION WIDTH 32.5 % (12.0-15.0); WHITE BLOOD COUNT 12.6 x10^3/uL (4.8-10.8)
[2018-07-13 05:30] LABS: CALCIUM 7.3 mg/dL (8.5-10.3); CREATININE 0.6 mg/dL (0.6-1.2)
[2018-07-13 05:50] LABS: PLATELET ESTIMATE, MANUAL INCREASED (>450,000) (NORMAL); PLATELET MORPHOLOGY NORMAL APPEARANCE (NORMAL)
[2018-07-13] MEDS: PANTOPRAZOLE 40 MG TABLET PO SCH (06:31)
[2018-07-13] MEDS ORDERED: oxyCODONE 5 MG TABLET PO PRN (07:34)
--- NOTE | 2018-07-13 07:39 | PROVIDER PROGRESS NOTE ---
Subjective - General Admit Date: 07/10/18 Procedure Date: 07/10/18 Post Op Days: 3 Procedure Performed: resection of pelvic mass - Review of Systems Wound/Incisions: positive: Dressing dry and intact, No drainage General: positive: Appetite (good). negative: Fever, Weakness HEENT: positive: No symptoms Pulmonary: positive: No symptoms Cardiovascular: positive: No symptoms Gastrointestinal: positive: Abdominal pain (improved), Flatus. negative: Nausea, Vomiting Genitourinary: positive: No symptoms, Other (voiding well with sands out) Skin: positive: No symptoms Psychiatric: positive: No symptoms - Other Other Information/Narrative: feeling better; tolerating regular diet; loose nonbloody bms Objective - Patient Data Reviewed Vital Signs: Yes Vital Signs: Vital Signs x48h Temp Pulse Resp BP Pulse Ox 07/13/18 00:30 36.4 C L 74 20 133/72 H 95 Weight: Weight 07/11/18 07/12/18 07/13/18 23:59 23:59 23:59 Weight (kg) 55.7 kg 57 kg 59.5 kg Intake & Output: Intake and Output Totals x24h 07/11/18 07/12/18 07/13/18 23:59 23:59 23:59 Intake Total 4270 1390 100 Output Total 650 1200 Balance 3620 190 100 - Lab Results Lab Results: 07/13/18 05:03 07/13/18 05:03 Other Lab Results: Lab Results x24hrs 07/13/18 07/13/18 07/12/18 Range/Units 05:03 05:03 11:55 WBC 12.6 H 14.2 H (4.8-10.8) x10^3/uL RBC 3.48 L 3.80 L (4.70-6.10) 10^6/uL Hgb 7.7 L 8.5 L (14.0-18.0) g/dL Hct 24.4 L 25.8 L (42.0-52.0) % MCV 70.0 L 67.9 L (80.0-94.0) fL MCH 22.1 L 22.3 L (27.0-31.0) pg MCHC 31.5 L 32.9 (32.0-36.0) g/dL RDW 32.5 H 33.1 H (12.0-15.0) % Plt Count 487 H 550 H (130-450) 10^3/uL MPV 6.1 L 5.9 L (7.4-11.4) fL Neut # (Auto) 10.1 H 12.5 H (1.5-6.6) 10^3/uL Lymph # (Auto) 1.4 L 0.8 L (1.5-3.5) 10^3/uL [place] # (Auto) 0.8 0.8 (0.0-1.0) 10^3/uL Eos # (Auto) 0.2 0.1 (0.0-0.7) 10^3/uL Baso # (Auto) 0.0 0.1 (0.0-0.1) 10^3/uL Absolute Nucleated RBC 0.00 0.00 x10^3/uL Nucleated RBC % 0.0 0.0 /100WBC Manual Slide Review Indicated Indicated Platelet Estimate INCREASED (>450,000) INCREASED (>450,000) (NORMAL) Platelet Morphology NORMAL APPEARANCE NORMAL APPEARANCE (NORMAL) RBC Morph Micro Appear 1+ MICROCYTOSIS 1+ OVALOCYTES (NORMAL) Sodium 125 L (135-145) mmol/L Potassium 3.4 L (3.5-5.0) mmol/L Chloride 97 L (101-111) mmol/L Carbon Dioxide 21 (21-32) mmol/L Anion Gap 7.0 (6-13) BUN 12 (6-20) mg/dL Creatinine 0.6 (0.6-1.2) mg/dL Estimated GFR (MDRD) 138 (>89) Glucose 112 H (70-100) mg/dL Calcium 7.3 L (8.5-10.3) mg/dL after a total of 2 units of prbcs postop - Current Medications Current Medications: Current Medications Generic Name Dose Route Start Last Admin Trade Name Freq PRN Reason Stop Dose Admin Acetaminophen 650 mg 07/12/18 09:00 07/13/18 03:32 Tylenol PO 650 mg Q6H BRAYDEN Administration Enoxaparin Sodium 40 mg 07/11/18 09:00 07/12/18 09:03 Lovenox SUBQ 40 mg DAILY BRAYDEN Administration Fentanyl/Bupivacaine/Sodium Chlor 250 mls @ 0 mls/hr 07/11/18 10:32 07/12/18 21:33 Fent/Bupiv 2 Mcg/0.125% EP 12 mls/hr .Q0M PRN Administration PAIN Protocol Per Protocol Ibuprofen 400 mg 07/12/18 12:00 07/13/18 06:29 Motrin PO 400 mg Q6HR BRAYDEN Administration Nalbuphine HCl 2.5 - 5 mg 07/10/18 13:28 07/12/18 22:40 Nubain IVP 2.5 mg Q4H PRN Administration Severe Itching Pantoprazole Sodium 40 mg 07/10/18 16:30 07/13/18 06:31 Protonix PO 40 mg QDAC BRAYDEN Administration Sodium Chloride 10 ml 07/10/18 17:00 07/13/18 00:03 Normal Saline Flush 0.9% IVP 10 ml 0100,0900,1700 BRAYDEN Administration Sodium Chloride 10 ml 07/10/18 12:31 07/13/18 00:04 Normal Saline Flush 0.9% IVP 10 ml PRN PRN Administration NEEDED PER PROVIDER ORDERS - Physical Exam Wound/Incisions: positive: Dressing dry and intact, No drainage General Appearance: positive: No acute distress, Alert Eyes Bilateral: positive: Conjunctivae nml, No scleral icterus ENT: positive: Pharynx nml, No signs of dehydration Neck: positive: No JVD Respiratory: positive: Chest non-tender, No respiratory distress, Other (diminished breath sounds in bases ow clear) Cardiovascular: positive: Regular rate & rhythm, No murmur, No gallop Abdomen: positive: Nml bowel sounds, Tenderness (mild expected). negative: No distention (mild distention) Skin: positive: Color nml, No rash, Warm, Dry Extremities: positive: No pedal edema. negative: Calf tenderness Neurologic/Psychiatric: positive: Oriented x3 ABX Reporting Has patient been on IV antibiotics over the past 48 hours?: No Impression/Plan - Problem List Problem List: Doing well PO day 3; plan: d/c epidural; po analgesics; home tomorrow if continu es to improve Anemia: stable, s/p transfusion 2 units prbcs hyponatremia, stable; continue no free water
--- NOTE | 2018-07-13 08:38 | CONSULTATION NOTE ---
Referring Provider Name of Referring Provider:: Herber Charles Consult Date: 07/13/18 (Removed epidural cath, which had been partially pulled out with approximately 4 cm left indwelling. No redness, swelling or pain, tip intact. Site covered with band aid, instructede nurse patient couldn't receive Lovenox for 2 hours.) History - Past Medical History Cardiovascular: reports: Hypertension Respiratory: reports: Asthma, COPD Neuro: reports: None Endocrine/Autoimmune: reports: None GI: reports: GERD, Ulcers, Colon polyps, Chronic diarrhea, Chronic constipation : reports: None HEENT: reports: None Psych: reports: Anxiety, Claustrophobia Musculoskeletal: reports: Osteoarthritis Derm: reports: None MRSA Hx?: No - Past Surgical History General: reports: Colonoscopy, EGD Ortho: reports: Other - Family & Social History Family History: Mother: , Cancer, Father: , CAD Family History Comment/Other: pt report he is single without child. he is living at [place]. FH CRC in sister who DOD in her 30s and aunt who DOD in her 50s or 60s Social History Notes: pt report he is a heavy current cigarette smoker. he denies alcohol and drug problem - Substance History Use: Uses substance without health or social issues: Tobacco, Alcohol - POLST Patient has POLST: No Meds/Allgy - Home Medications Home Medications: Ambulatory Orders Medication Instructions Recorded Confirmed amLODIPine [Norvasc] 5 mg PO DAILY 10/23/15 07/10/18 Cyclobenzaprine [Flexeril] 5 - 10 mg PO TID PRN 10/24/15 07/10/18 Hydroxyzine HCl 50 mg PO QPM 10/24/15 07/10/18 Acetaminophen 3 - 4 tab PO PRN PRN 07/06/18 07/10/18 Omeprazole 20 mg PO BIDAC 07/10/18 07/10/18 - Allergies Allergies/Adverse Reactions: Allergies Allergy/AdvReac Type Severity Reaction Status Date / Time doxycycline Allergy Severe Edema Verified 07/10/18 09:32 lisinopril Allergy Severe Unknown Verified 07/10/18 09:32 trazodone Allergy Unknown Verified 07/10/18 07:17 NSAIDS (Non-Steroidal AdvReac Intermediate Gastric Verified 07/10/18 14:36 Anti-Inflamma upset aspirin AdvReac Unknown Verified 07/10/18 07:17 NAIDS AdvReac Unknown Uncoded 07/10/18 07:18 Exam - Vital Signs Vital Signs: Vital Signs x48h Temp Pulse Resp BP Pulse Ox 07/13/18 07:49 36.8 C 70 20 121/57 L 95 Conclusion/Plan - Lab Results Lab results reviewed: Yes Fish Bones: 07/13/18 05:03 07/13/18 05:03
[2018-07-13] MEDS: ENOXAPARIN 40 MG/0.4 ML SYRINGE SUBQ SCH (10:38)
[2018-07-13] MEDS: oxyCODONE 5 MG TABLET PO PRN ×3 (14:50→23:58)
[2018-07-13] MEDS: IBUPROFEN 600 MG TABLET PO SCH ×2 (17:50→23:58)
[2018-07-14] MEDS: ACETAMINOPHEN 325 MG TABLET PO SCH ×2 (02:39→08:29)
[2018-07-14] MEDS: PANTOPRAZOLE 40 MG TABLET PO SCH (06:04)
[2018-07-14] MEDS: IBUPROFEN 600 MG TABLET PO SCH (06:05)
[2018-07-14] MEDS: oxyCODONE 5 MG TABLET PO PRN (06:05)
[2018-07-14 06:15] LABS: BASOPHILS # (AUTO) 0.1 10^3/uL (0.0-0.1); BASOPHILS % (AUTO) 0.5 %; EOSINOPHILS # (AUTO) 0.3 10^3/uL (0.0-0.7); EOSINOPHILS % (AUTO) 2.9 %; LYMPHOCYTES # (AUTO) 1.8 10^3/uL (1.5-3.5); LYMPHOCYTES % (AUTO) 17.4 %; MEAN CORPUSCULAR HEMOGLOBIN 22.6 pg (27.0-31.0); MEAN CORPUSCULAR HGB CONC 32.5 g/dL (32.0-36.0); MEAN CORPUSCULAR VOLUME 69.5 fL (80.0-94.0); MEAN PLATELET VOLUME 6.4 fL (7.4-11.4); MONOCYTES # (AUTO) 0.6 10^3/uL (0.0-1.0); MONOCYTES % (AUTO) 5.4 %; NEUTROPHILS # (AUTO) 7.7 10^3/uL (1.5-6.6); NEUTROPHILS % (AUTO) 73.8 %; PLT - PLATELET COUNT 519 10^3/uL (130-450); RED BLOOD COUNT 3.53 10^6/uL (4.70-6.10); RED CELL DISTRIBUTION WIDTH 33.3 % (12.0-15.0); WHITE BLOOD COUNT 10.4 x10^3/uL (4.8-10.8)
[2018-07-14 06:21] LABS: CALCIUM 7.8 mg/dL (8.5-10.3); CREATININE 0.5 mg/dL (0.6-1.2)
--- NOTE | 2018-07-14 07:01 | PROVIDER PROGRESS NOTE ---
Subjective - General Admit Date: 07/10/18 Procedure Date: 07/10/18 Post Op Days: 4 Procedure Performed: resection of pelvic mass - Review of Systems Wound/Incisions: positive: Dressing dry and intact, No drainage General: positive: Appetite (good). negative: Fever, Weakness HEENT: positive: No symptoms Pulmonary: positive: No symptoms Cardiovascular: positive: No symptoms Gastrointestinal: positive: Abdominal pain (improved), Flatus (and stools). negative: Nausea, Vomiting, Difficulty swallowing Genitourinary: positive: No symptoms Skin: positive: No symptoms Psychiatric: positive: No symptoms - Other Other Information/Narrative: adequate pain control with oral analgesics, ambulating well with walker; tolerating regular diet, voiding and moving bowels. Objective - Patient Data Reviewed Vital Signs: Yes Vital Signs: Vital Signs x48h Temp Pulse Resp BP Pulse Ox 07/13/18 23:59 36.8 C 76 18 150/76 H 93 Weight: Weight 07/12/18 07/13/18 07/14/18 23:59 23:59 23:59 Weight (kg) 57 kg 59.5 kg 59 kg Intake & Output: Intake and Output Totals x24h 07/12/18 07/13/18 07/14/18 23:59 23:59 23:59 Intake Total 1390 860 Output Total 1200 Balance 190 860 - Lab Results Lab Results: 07/14/18 05:42 07/14/18 05:42 Other Lab Results: Lab Results x24hrs 07/14/18 07/14/18 Range/Units 05:42 05:42 WBC 10.4 (4.8-10.8) x10^3/uL RBC 3.53 L (4.70-6.10) 10^6/uL Hgb 8.0 L (14.0-18.0) g/dL Hct 24.5 L (42.0-52.0) % MCV 69.5 L (80.0-94.0) fL MCH 22.6 L (27.0-31.0) pg MCHC 32.5 (32.0-36.0) g/dL RDW 33.3 H (12.0-15.0) % Plt Count 519 H (130-450) 10^3/uL MPV 6.4 L (7.4-11.4) fL Manual Slide Review Indicated Sodium 128 L (135-145) mmol/L Potassium 3.6 (3.5-5.0) mmol/L Chloride 99 L (101-111) mmol/L Carbon Dioxide 22 (21-32) mmol/L Anion Gap 7.0 (6-13) BUN 10 (6-20) mg/dL Creatinine 0.5 L (0.6-1.2) mg/dL Estimated GFR (MDRD) 170 (>89) Glucose 105 H (70-100) mg/dL Calcium 7.8 L (8.5-10.3) mg/dL - Current Medications Current Medications: Current Medications Generic Name Dose Route Start Last Admin Trade Name Freq PRN Reason Stop Dose Admin Acetaminophen 650 mg 07/12/18 09:00 07/14/18 02:39 Tylenol PO 650 mg Q6H BRAYDEN Administration Enoxaparin Sodium 40 mg 07/11/18 09:00 07/13/18 10:38 Lovenox SUBQ 40 mg DAILY BRAYDEN Administration Fentanyl/Bupivacaine/Sodium Chlor 250 mls @ 0 mls/hr 07/11/18 10:32 07/12/18 21:33 Fent/Bupiv 2 Mcg/0.125% EP 12 mls/hr .Q0M PRN Administration PAIN Protocol Per Protocol Ibuprofen 600 mg 07/13/18 18:00 07/14/18 06:05 Motrin PO 600 mg Q6HR BRAYDEN Administration Nalbuphine HCl 2.5 - 5 mg 07/10/18 13:28 07/12/18 22:40 Nubain IVP 2.5 mg Q4H PRN Administration Severe Itching Oxycodone HCl 10 mg 07/13/18 14:03 07/14/18 06:05 Roxicodone PO 10 mg Q4HR PRN Administration PAIN Pantoprazole Sodium 40 mg 07/10/18 16:30 07/14/18 06:04 Protonix PO 40 mg QDAC BRAYDEN Administration Sodium Chloride 10 ml 07/10/18 17:00 07/13/18 23:59 Normal Saline Flush 0.9% IVP 10 ml 0100,0900,1700 BRAYDEN Administration Sodium Chloride 10 ml 07/10/18 12:31 07/13/18 10:41 Normal Saline Flush 0.9% IVP 20 ml PRN PRN Administration NEEDED PER PROVIDER ORDERS - Physical Exam Wound/Incisions: positive: Healing well, No drainage General Appearance: positive: No acute distress, Alert Eyes Bilateral: positive: Conjunctivae nml, No scleral icterus ENT: positive: ENT inspection nml, Pharynx nml, No signs of dehydration Neck: positive: No JVD Respiratory: positive: Chest non-tender, No respiratory distress, Rhonchi (scattered, clear with cough) Cardiovascular: positive: Regular rate & rhythm, No murmur, No gallop Abdomen: positive: Non-tender, No organomegaly, Nml bowel sounds, No distention, Other (incisions healing well) Skin: positive: Color nml, No rash, Warm, Dry. negative: Cyanosis Extremities: positive: Non-tender, Nml appearance, No pedal edema. negative: Calf tenderness Neurologic/Psychiatric: positive: Oriented x3 ABX Reporting Has patient been on IV antibiotics over the past 48 hours?: No Impression/Plan - Problem List Problem List: 1. PO Day 4 s/p resection of pelvic mass arising from jejunum; doing well; path still pending; plan home today, usual precautions, RTO 1 week. Home health services, including home PT for general strengthening. 2. Anemia, stable, likely due to blood loss from tumor and surgery. 3. Hyponatremia, improved with free water restriction; will continue same on discharge.
[2018-07-14 07:06] LABS: PLATELET ESTIMATE, MANUAL INCREASED (>450,000) (NORMAL); PLATELET MORPHOLOGY NORMAL APPEARANCE (NORMAL)
--- NOTE | 2018-07-14 07:07 | Discharge Plan ---
Discharge Plan Disposition: Home Health Service Condition: Good Prescriptions: Ibuprofen [Motrin] 600 mg PO Q6HR PRN #30 tablet PRN Reason: Pain Acetaminophen [Tylenol] 650 mg PO Q6H PRN #50 tablet PRN Reason: Pain Omeprazole 40 mg PO DAILY #30 capsule. oxyCODONE [Roxicodone] 10 mg PO Q6H PRN #20 tablet PRN Reason: Pain Diet: Regular (no free water; no raw vegetables or nuts for 2 weeks) Activity Restrictions: ambulate daily as tolerated; no lifting more than 10 lbs for 2 weeks Shower Restrictions: No (no baths for 1 week) Driving Restrictions: Yes (not while using narcotic analgesics) Assistance Devices: Walker Weight Bearing: Full Weight Additional Instructions or Follow Up instructions: Follow up with Dr. Mcmillan in his office next week; call [phone] for an appointment if you don't already have one. Follow-Up Care: Home Health - PT No Smoking: If you smoke, Please STOP! Call for help. Follow-up with: Allie Barrientos ARNP [Primary Care Provider] -
--- NOTE | 2018-07-14 07:20 | DISCHARGE SUMMARY ---
"Discharge Summary Admit Date: 07/10/18 Discharge Date: 07/14/18 Discharging Provider: Dr. Angel Mcmillan Primary Care Provider: Rebekah Barrientos [employer]ARD REFEREE Code Status: Attempt Resuscitation Condition at Discharge: Good Discharge Disposition: Home Health Service Discharge Facility Name: [facility] - DIAGNOSES Admission Diagnoses: Pelvic Mass Discharge Diagnoses with Status of Each Condition: 1. Pelvic mass, resected; path pending. 2. Anemia, due to chronic blood loss and acute blood loss from surgery, stable, following transfusion of 2 units prbcs 3. Hyponatremia, unclear etiology, improved with free water restriction. 4. Deconditioning; plan home health PT services. - HPI History of Present Illness: See HPI previously dictated by Dr. Mcmillan - CONSULTS | PROCEDURES Procedures: 07/10/2018: Exploratory laparotomy, resection of pelvic mass including small bowel resection. - HOSPITAL COURSE Hospital Course: Post op course was unremarkable. Pain control was achieved with an epidural cat heter and infusion plus non narcotic analgesics, and transitioned to oral agents as GI tract function resumed. His anemia was noted to have worsened postop and was treated with transfusion of 2 units of prbcs. He was noted to be hyponatremic postop and was treated with free water restriction with im provement. At discharge he was tolerating a regular diet, ambulating with a walker, voiding and moving his bowels, afebrile, with stable vital signs. - ALLERGIES Allergies/Adverse Reactions: Allergies Allergy/AdvReac Type Severity Reaction Status Date / Time doxycycline Allergy Severe Edema Verified 07/10/18 09:32 lisinopril Allergy Severe Unknown Verified 07/10/18 09:32 trazodone Allergy Unknown Verified 07/10/18 07:17 NSAIDS (Non-Steroidal AdvReac Intermediate Gastric Verified 07/10/18 14:36 Anti-Inflamma upset aspirin AdvReac Unknown Verified 07/10/18 07:17 NAIDS AdvReac Unknown Uncoded 07/10/18 07:18 - MEDICATIONS Home Medications: Ambulatory Orders Medication Instructions Recorded Confirmed amLODIPine [Norvasc] 5 mg PO DAILY 10/23/15 07/10/18 Cyclobenzaprine [Flexeril] 5 - 10 mg PO TID PRN 10/24/15 07/10/18 Hydroxyzine HCl 50 mg PO QPM 10/24/15 07/10/18 Acetaminophen [Tylenol] 650 mg PO Q6H PRN #50 tablet 07/14/18 Ibuprofen [Motrin] 600 mg PO Q6HR PRN #30 tablet 07/14/18 Omeprazole 40 mg PO DAILY #30 capsule. 07/14/18 oxyCODONE [Roxicodone] 10 mg PO Q6H PRN #20 tablet 07/14/18 - PHYSICAL EXAM AT DISCHARGE General Appearance: positive: No acute distress, Alert Eyes Bilateral: positive: Normal inspection ENT: positive: ENT inspection nml Neck: positive: No JVD Respiratory: positive: Chest non-tender, No respiratory distress, Rhonchi (which cleared with cough) Cardiovascular: positive: Regular rate & rhythm, No murmur, No gallop Abdomen: positive: Non-tender, No organomegaly, Nml bowel sounds, No distention, Other (incisions healing well) Skin: positive: Color nml, No rash, Warm, Dry. negative: Cyanosis Extremities: positive: No pedal edema. negative: Calf tenderness Neurologic/Psychiatric: positive: Oriented x3 - LABS Result Diagrams: 07/14/18 05:42 07/14/18 05:42 - FOLLOW UP Follow Up: With Dr. Mcmillan in 1 week; Dr. Barrientos withing 1 week. - TIME SPENT Time Spent in Discharge (Minutes): 60"
[2018-07-14 07:58] VITALS: BP 143/78
[2018-07-14] MEDS: ENOXAPARIN 40 MG/0.4 ML SYRINGE SUBQ SCH (08:29)
[2018-07-14] MEDS: SODIUM CHLORIDE FLUSH 0.9% 10 ML SYRINGE IVP SCH (08:30)
== END 2018-07-14 09:12 | disposition home health service (06) | DRG 330 ==
LOC: MS2 06:12
PROVIDERS: ADMIT Internal Medicine Gastroenterology; ATTEND Internal Medicine Gastroenterology
PROC: 0DNA4ZZ Release Jejunum, Percutaneous Endoscopic Approach (ICD-10-PCS; 2018-07-10)
PROC: 30233N1 Transfusion of Nonautologous Red Blood Cells into Peripheral Vein, Percutaneous Approach (ICD-10-PCS; 2018-07-10)
PROC: 0DBA0ZZ Excision of Jejunum, Open Approach (ICD-10-PCS; principal; 2018-07-10 07:30)
DX: R19.00 Intra-abdominal and pelvic swelling, mass and lump, unspecified site (principal); D62 Acute posthemorrhagic anemia; E87.1 Hypo-osmolality and hyponatremia; F17.210 Nicotine dependence, cigarettes, uncomplicated; J44.9 Chronic obstructive pulmonary disease, unspecified; I10 Essential (primary) hypertension; D50.0 Iron deficiency anemia secondary to blood loss (chronic); Z53.31 Laparoscopic surgical procedure converted to open procedure
CPT/HCPCS: 36415; 80048; 80053; 85025; 86850; 86900; 86901; 86920

== ENCOUNTER 2018-08-12 15:43 | Outpatient (CLI) | payer MEDICARE | END 2018-08-12 15:44 | disposition critical access hospital (66) | LOC: EMS 15:43 | PROVIDERS: ATTEND Surgery | DX: R42 Dizziness and giddiness (principal) | CPT/HCPCS: A0425; A0427 ==

== ENCOUNTER 2018-08-12 16:09 | Inpatient (IN) | payer MEDICARE ==
[2018-08-12] MEDS ORDERED: SODIUM CHLORIDE 0.9% 1,000 ML IV ONE (16:19)
[2018-08-12] MEDS ORDERED: HYDROmorphone 1 MG/ML CARPUJECT IVP STA (16:19)
[2018-08-12] MEDS ORDERED: ONDANSETRON 4 MG/2 ML VIAL IVP STA (16:19)
--- NOTE | 2018-08-12 16:25 | ED Physician Documentation ---
History of Present Illness - Stated complaint Stated Complaint: ABD PX - Chief complaint Chief Complaint: Abd Pain - Additonal information Additional information: hx from pt and EMR 57 male 07/06 2 weeks ago sent by PMD to ED for anemia HGB 6 had GIB was admitted, had EGD showing probable barretts esophagus and had polyps removed and biopsies - and then had CT which showed a 12 cm necrotic mass in the pelvis with ddx tumor vs abscess after transfusion was dced then returned for surgery 7he then had surgery and a large tumor was removed - per op report was cavitary and arose from jejunum and despite precautions it ruptured during surgery - 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 denies: Diarrhea, Hematemesis, Bloody / black stool : denies: Dysuria Neurologic: reports: Generalized weakness PD PAST MEDICAL HISTORY - Past Medical History Cardiovascular: Hypertension Respiratory: Asthma, COPD Neuro: None Endocrine/Autoimmune: None GI: GERD, Ulcers, Colon polyps, Chronic diarrhea, Chronic constipation : None HEENT: None Psych: Anxiety, Claustrophobia Musculoskeletal: Osteoarthritis Derm: None - Past Surgical History Past Surgical History: Yes General: Colonoscopy, EGD Ortho: Other - Present Medications Home Medications: Ambulatory Orders Medication Instructions Recorded Confirmed amLODIPine [Norvasc] 5 mg PO DAILY 10/23/15 07/10/18 Cyclobenzaprine [Flexeril] 5 - 10 mg PO TID PRN 10/24/15 07/10/18 Hydroxyzine HCl 50 mg PO QPM 10/24/15 07/10/18 Acetaminophen [Tylenol] 650 mg PO Q6H PRN #50 tablet 07/14/18 Ibuprofen [Motrin] 600 mg PO Q6HR PRN #30 tablet 07/14/18 Omeprazole 40 mg PO DAILY #30 capsule. 07/14/18 oxyCODONE [Roxicodone] 10 mg PO Q6H PRN #20 tablet 07/14/18 - Allergies Allergies/Adverse Reactions: Allergies Allergy/AdvReac Type Severity Reaction Status Date / Time doxycycline Allergy Severe Edema Verified 08/12/18 16:15 lisinopril Allergy Severe Unknown Verified 08/12/18 16:15 trazodone Allergy Unknown Verified 08/12/18 16:15 NSAIDS (Non-Steroidal AdvReac Intermediate Gastric Verified 08/12/18 16:15 Anti-Inflamma upset aspirin AdvReac Unknown Verified 08/12/18 16:15 NAIDS AdvReac Unknown Uncoded 08/12/18 16:15 - Social History Does the pt smoke?: Yes Smoking Status: Current every day smoker (1/2pk for 40 years) Does the pt drink ETOH?: Yes Does the pt have substance abuse?: Yes - Immunizations Immunizations are current?: Yes - POLST Patient has POLST: No PD ED PE NORMAL - Vitals Vital signs reviewed: Yes - Neck Neck: Supple, no meningeal sign - Cardiac Cardiac: RRR - Respiratory Respiratory: No respiratory distress, Clear bilaterally - Abdomen Abdomen: Other (non distened, incisions healing, one staple removed, no erythema or dehisc, TTTP to lower abd with guarding) - Derm Derm: Other (pale) - Neuro Neuro: Alert and oriented X 3 Results - Vitals Vitals: Vital Signs - 24 hr 08/12/18 16:12 Temperature 36.1 C L Heart Rate 118 H Respiratory 16 Rate Blood Pressure 125/89 H O2 Saturation 100 Oxygen O2 Source Room air - Labs Labs: Laboratory Tests 08/12/18 08/12/18 08/12/18 16:33 16:33 16:33 WBC 8.9 RBC 5.70 Hgb 13.3 L Hct 41.8 L MCV 73.3 L MCH 23.4 L MCHC 31.9 L RDW 30.3 H Plt Count 419 MPV 8.2 Neut # (Auto) 6.8 H Lymph # (Auto) 0.8 L [place] # (Auto) 1.1 H Eos # (Auto) 0.1 Baso # (Auto) 0.2 H Absolute Nucleated RBC 0.01 Nucleated RBC % 0.1 Manual Slide Review Indicated WBC Morphology NORMAL APPEARANCE Platelet Estimate NORMAL (130-450,000) Platelet Morphology NORMAL APPEARANCE RBC Morph Micro Appear 1+ MICROCYTOSIS Sodium 125 L Potassium 4.0 Chloride 89 L Carbon Dioxide 25 Anion Gap 11.0 BUN 13 Creatinine 1.1 Estimated GFR (MDRD) 69 L Glucose 151 H Calcium 9.7 Total Bilirubin 0.4 AST 28 ALT 21 Alkaline Phosphatase 123 H Total Protein 9.1 H Albumin 4.7 Globulin 4.4 H Albumin/Globulin Ratio 1.1 Lipase 26 Urine Color Urine Clarity Urine pH Ur Specific [place] Urine Protein Urine Glucose (UA) Urine Ketones Urine Occult Blood Urine Nitrite Urine Bilirubin Urine Urobilinogen Ur Leukocyte Esterase Urine RBC Urine WBC Ur Squamous Epith Cells Urine Bacteria Urine Mucus Ur Microscopic Review Urine Culture Comments Blood Type O POSITIVE Antibody Screen NEGATIVE 08/12/18 17:21 WBC RBC Hgb Hct MCV MCH MCHC RDW Plt Count MPV Neut # (Auto) Lymph # (Auto) [place] # (Auto) Eos # (Auto) Baso # (Auto) Absolute Nucleated RBC Nucleated RBC % Manual Slide Review WBC Morphology Platelet Estimate Platelet Morphology RBC Morph Micro Appear Sodium Potassium Chloride Carbon Dioxide Anion Gap BUN Creatinine Estimated GFR (MDRD) Glucose Calcium Total Bilirubin AST ALT Alkaline Phosphatase Total Protein Albumin Globulin Albumin/Globulin Ratio Lipase Urine Color DARK YELLOW Urine Clarity CLEAR Urine pH 6.5 Ur Specific [place] 1.025 Urine Protein 100 H Urine Glucose (UA) NEGATIVE Urine Ketones TRACE Urine Occult Blood NEGATIVE Urine Nitrite NEGATIVE Urine Bilirubin NEGATIVE Urine Urobilinogen 0.2 (NORMAL) Ur Leukocyte Esterase NEGATIVE Urine RBC 0-5 Urine WBC 4-5 Ur Squamous Epith Cells RARE Squamous Urine Bacteria None Seen Urine Mucus Marked Strands Ur Microscopic Review INDICATED Urine Culture Comments NOT INDICATED Blood Type Antibody Screen - Rads (name of study) CTAP Radiology: See rad report (SBO transition low abd, mesenteric edema) PD MEDICAL DECISION MAKING - ED course ED course: d/w surgeon and hospitalist at 1830 will admit hyponatremia not new pt updated he is comfortable after meds Departure - Departure Disposition: 66 [facility] DC/Xfer Clinical Impression: SBO (small bowel obstruction) Condition: Fair
[2018-08-12 16:51] LABS: BASOPHILS # (AUTO) 0.2 10^3/uL (0.0-0.1); BASOPHILS % (AUTO) 1.9 %; EOSINOPHILS # (AUTO) 0.1 10^3/uL (0.0-0.7); EOSINOPHILS % (AUTO) 0.8 %; HGB - HEMOGLOBIN 13.3 g/dL (14.0-18.0); LYMPHOCYTES # (AUTO) 0.8 10^3/uL (1.5-3.5); LYMPHOCYTES % (AUTO) 8.7 %; MEAN CORPUSCULAR HEMOGLOBIN 23.4 pg (27.0-31.0); MEAN CORPUSCULAR HGB CONC 31.9 g/dL (32.0-36.0); MEAN CORPUSCULAR VOLUME 73.3 fL (80.0-94.0); MEAN PLATELET VOLUME 8.2 fL (7.4-11.4); MONOCYTES # (AUTO) 1.1 10^3/uL (0.0-1.0); MONOCYTES % (AUTO) 12.3 %; NEUTROPHILS # (AUTO) 6.8 10^3/uL (1.5-6.6); NEUTROPHILS % (AUTO) 76.3 %; PLT - PLATELET COUNT 419 10^3/uL (130-450); RED CELL DISTRIBUTION WIDTH 30.3 % (12.0-15.0); WHITE BLOOD COUNT 8.9 x10^3/uL (4.8-10.8)
[2018-08-12 16:55] LABS: ALBUMIN 4.7 g/dL (3.2-5.5); ALBUMIN/GLOBULIN RATIO 1.1 (1.0-2.2); BILIRUBIN,TOTAL 0.4 mg/dL (0.2-1.0); CALCIUM 9.7 mg/dL (8.5-10.3); CREATININE 1.1 mg/dL (0.6-1.2); TOTAL PROTEIN 9.1 g/dL (6.7-8.2)
[2018-08-12] MEDS ORDERED: IOVERSOL 320 100 ML VIAL IVP ONE ×2 (17:00→17:49)
[2018-08-12 17:04] LABS: PLATELET ESTIMATE, MANUAL NORMAL (130-450,000) (NORMAL); PLATELET MORPHOLOGY NORMAL APPEARANCE (NORMAL)
[2018-08-12 17:30] LABS: BILIRUBIN,URINE NEGATIVE (NEGATIVE); GLUCOSE, URINE (UA) NEGATIVE (NEGATIVE); KETONES,URINE (UA) TRACE mg/dL (NEGATIVE); LEUKOCYTE ESTERASE, URINE NEGATIVE (NEGATIVE); NITRITE,URINE NEGATIVE (NEGATIVE); OCCULT BLOOD,URINE NEGATIVE (NEGATIVE); PH,URINE 6.5 PH (5.0-7.5); PROTEIN,URINE 100 mg/dL (NEGATIVE); UROBILINOGEN,URINE 0.2 (NORMAL) E.U./dL (NORMAL)
[2018-08-12 17:38] LABS: CLARITY,URINE CLEAR (CLEAR)
[2018-08-12 17:45] LABS: BACTERIA,URINE None Seen /HPF (None Seen); MUCUS,URINE Marked Strands; RBC,URINE 0-5 /HPF (0-5); SQUAMOUS EPITHELIAL CELL,UR RARE Squamous (<= Few)
--- NOTE | 2018-08-12 18:11 | CT Report ---
Reason: 2 weeks post op tumer and bowel resection Procedure Date: 08/12/2018 Accession Number: [id number] / [id number] Procedure: CT - Abdomen/Pelvis W/ CPT Code: FULL RESULT: EXAM: CT ABDOMEN AND PELVIS EXAM DATE: 08/12/2018 05:18 PM. CLINICAL HISTORY: Bowel resection COMPARISONS: ABDOMEN/PELVIS W/ 07/07/2018 12:11 PM. TECHNIQUE: Routine helical CT imaging was performed through the abdomen and pelvis. IV contrast: 90 ML OPTIRAY 320. Enteric contrast: No. Reconstructions: Coronal and sagittal. In accordance with CT protocol optimization, one or more of the following dose reduction techniques were utilized for this exam: automated exposure control, adjustment of mA and/or KV based on patient size, or use of iterative reconstructive technique. FINDINGS: Lung Bases: Unremarkable. Liver: Normal. No masses. Gallbladder/Bile Ducts: Unremarkable. Spleen: Normal. Pancreas: Normal. Adrenal Glands: Normal. Kidneys: Normal. No masses or hydronephrosis. Peritoneal Cavity/Bowel: There is moderate distention of the stomach. There is dilated small bowel measuring up to 3.5 cm. There is mesenteric edema. Distal small bowel is decompressed. There is a low abdominal small bowel anastomosis. The colon is decompressed. There is no evidence of intraperitoneal free air. No enlarged mesenteric or retroperitoneal lymph nodes. The appendix is well visualized and normal. Pelvic Organs: Normal. The bladder and visualized pelvic organs are within normal limits. Vasculature: No aneurysms or other significant abnormality. Bones: No significant abnormality. Other: None. IMPRESSION: 1. There is mildly dilated, fluid-filled proximal small bowel measuring up to 3.5 cm in diameter. There is mesenteric edema. Distal small bowel is decompressed. Findings are suspicious for small bowel obstruction. Transition point to decompressed bowel is located within the low mid abdomen (image 56 series 3). 2. Solid abdominal organs demonstrate no acute abnormalities. 3. The colon is decompressed. No evidence of appendicitis. RADIA
[2018-08-12] MEDS ORDERED: PROCHLORPERAZINE 10 MG/2 ML VIAL IVP PRN (18:35)
[2018-08-12] MEDS ORDERED: ZOLPIDEM 5 MG TABLET PO PRN (18:35)
[2018-08-12] MEDS ORDERED: ONDANSETRON 4 MG/2 ML VIAL IVP PRN (18:35)
[2018-08-12] MEDS ORDERED: hydrALAZINE INJ 20 MG/ML VIAL IVP PRN (18:44)
--- NOTE | 2018-08-12 18:52 | HISTORY & PHYSICAL EXAMINATION ---
Chief Complaint - Chief Complaint Chief Complaint: Abdominal pain with nausea and vomiting History of Present Illness - Admitted From Admitted From:: Emergency apartment - History Obtained From Records Reviewed: Emergency department records and previous hospital admission, and surgical History obtained from: Patient and Dr. Correa, ED physician Exam Limitations: None - History of Present Illness HPI Comment/Other: Patient is a 57-year-old male with past medical history of hypertension, tobacco abuse, GERD, peptic ulcer, who last month was diagnosed with a intra-abdominal mass after presenting with anemia sufficient to have patient received 2 units of PRBCs, followed by upper GI series not demonstrate dose of source of bleeding, leading to the CT scan of the abdomen demonstrating an abdominal mass that was taken out surgically on 07/10/2018, somewhat complicated by rupturing of the mass. Patient states that he has essentially been having abdominal pain since the surgery however it has been gradually worsening in the last couple of days he has had intractable vomiting of feculent material and today has had no bowel movements or flatus. He does report some subjective fevers with chills at home. CT scan done here in the emergency department is significant for showing a mildly dilated Small bowelUp to 3.5 cm. General surgery on-call, Dr. Fulton, was notified.He recommended the patient be admitted to the hospitalist service with NG tube suction and he will see the patient tomorrow morning. History - Past Medical History Cardiovascular: reports: Hypertension Respiratory: reports: Asthma, COPD Neuro: reports: None Endocrine/Autoimmune: reports: None GI: reports: GERD, Ulcers, Colon polyps, Chronic diarrhea, Chronic constipation : reports: None HEENT: reports: None Psych: reports: Anxiety, Claustrophobia Musculoskeletal: reports: Osteoarthritis Derm: reports: None MRSA Hx?: No - Past Surgical History General: reports: Colonoscopy, EGD Ortho: reports: Other - Family & Social History Family History: Mother: , Cancer, Father: , CAD Family History Comment/Other: pt report he is single without child. he is living at [place]. FH CRC in sister who DOD in her 30s and aunt who DOD in her 50s or 60s Social History Notes: pt report he is a heavy current cigarette smoker. he denies alcohol and drug problem - Substance History Use: Uses substance without health or social issues: Tobacco, Alcohol - POLST Patient has POLST: No Meds/Allgy - Home Medications Home Medications: Ambulatory Orders Medication Instructions Recorded Confirmed amLODIPine [Norvasc] 5 mg PO DAILY 10/23/15 07/10/18 Cyclobenzaprine [Flexeril] 5 - 10 mg PO TID PRN 10/24/15 07/10/18 Hydroxyzine HCl 50 mg PO QPM 10/24/15 07/10/18 Acetaminophen [Tylenol] 650 mg PO Q6H PRN #50 tablet 07/14/18 Ibuprofen [Motrin] 600 mg PO Q6HR PRN #30 tablet 07/14/18 Omeprazole 40 mg PO DAILY #30 capsule. 07/14/18 oxyCODONE [Roxicodone] 10 mg PO Q6H PRN #20 tablet 07/14/18 - Allergies Allergies/Adverse Reactions: Allergies Allergy/AdvReac Type Severity Reaction Status Date / Time doxycycline Allergy Severe Edema Verified 08/12/18 16:15 lisinopril Allergy Severe Unknown Verified 08/12/18 16:15 trazodone Allergy Unknown Verified 08/12/18 16:15 NSAIDS (Non-Steroidal AdvReac Intermediate Gastric Verified 08/12/18 16:15 Anti-Inflamma upset aspirin AdvReac Unknown Verified 08/12/18 16:15 NAIDS AdvReac Unknown Uncoded 08/12/18 16:15 Review of Systems - Constitutional Constitutional: reports: Fatigue, Fever, Chills, Weakness, Poor appetite - Cardiovascular Cariovascular: denies: Chest pain - Respiratory Respiratory: reports: Cough, SOB at rest, SOB with exertion - Gastrointestinal Gastrointestinal: reports: Abdominal pain, Abdominal distention, Constipation, Diarrhea, Change in bowel habits, Nausea, Vomiting, Reflux/heartburn, Bloating, Poor appetite. denies: Rectal bleeding, Black stools, Bloody stools, Bile emes is, David blood emesis, Coffee grounds emesis - Genitourinary Genitourinary: denies: Dysuria - Musculoskeletal Musculoskeletal: reports: Back pain, Stiffness - Neurological Neurological: reports: General weakness. denies: Focal weakness Prior Level of Functionality: Independent Exam - Vital Signs Reviewed Vital Signs: Yes Vital Signs: Vital Signs x48h Temp Pulse Resp BP Pulse Ox 08/12/18 18:46 37.0 C 103 H 16 133/89 H 100 08/12/18 16:12 36.1 C L 118 H 16 125/89 H 100 - Physical Exam General Appearance: positive: No acute distress Eyes Bilateral: positive: Normal inspection ENT: positive: ENT inspection nml Neck: positive: Nml inspection Respiratory: positive: Chest non-tender, No respiratory distress Cardiovascular: positive: Regular rate & rhythm, No murmur, No gallop Peripheral Pulses: positive: 2+ Abdomen: positive: Tenderness, Guarding, Abnml bowel sounds, Other (Mildly distended, generalized tenderness, hypoactive bowel sounds) Skin: positive: Color nml, No rash Extremities: positive: Non-tender, Nml appearance, No pedal edema Neurologic/Psychiatric: positive: Oriented x3, CN's nml (2-12), Motor nml, Sensation nml Conclusion/Plan - Problem List (1) SBO (small bowel obstruction) Conclusion/Plan: Small bowel obstruction likely related to recent surgery. Patient does not have evidence of acute abscess, perforation, or more compromising lesion on CT scan so will be managed conservatively for now starting with a nasogastric tube and n.p.o. status with IV fluid hydration. Surgery is aware and will be seeing the patient tomorrow. Pending clinical course, further decisions regarding need for surgical treatment to be determined. (2) HTN (hypertension) Conclusion/Plan: Would like to hold off on any oral medications, so rather than his home amlodipine, will add IV hydralazine as needed for blood pressure control until his diet can be advanced to allow oral medications. (3) Hyponatremia Conclusion/Plan: Likely related to GI loss and hypovolemia, will follow labs daily and replace with IV fluids, NS. (4) Tobacco abuse Conclusion/Plan: History of tobacco abuse, will place patient on nicotine patch and counseled to quit (5) Hx of gastric ulcer Conclusion/Plan: Patient takes PPI at home, will be put on twice daily PPI given his recent symptoms and recent surgery. - Lab Results Lab results reviewed: Yes Fish Bones: 08/12/18 16:33 08/12/18 16:33 - Diagnostic Imaging Results Diagnostic Imaging Results: positive: Prelim report reviewed, Final report reviewed, Read independently Core Measures - Anticipated LOS I expect patient to be DC'd or transferred within 96 hours.: Yes - DVT/VTE - Prophylaxis VTE/DVT Device ordered at admit?: Yes
[2018-08-12] MEDS: MORPHINE 2 MG/ML CARPUJECT IVP PRN ×2 (19:46→21:34)
[2018-08-12] MEDS: SODIUM CHLORIDE 0.9% 1,000 ML IV SCH (19:47)
--- NOTE | 2018-08-12 20:25 | XRAY Report ---
Reason: ng placement Procedure Date: 08/12/2018 Accession Number: [id number] / [id number] Procedure: XR - Chest 1 View X-Ray CPT Code: 05788 FULL RESULT: EXAM: CHEST RADIOGRAPHY EXAM DATE: 08/12/2018 07:37 PM. CLINICAL HISTORY: Nasogastric tube placement COMPARISON: CHEST 2 VIEW 07/07/2018 3:37 PM ABDOMEN/PELVIS W/ 08/12/2018 5:18 PM. TECHNIQUE: 1 view. FINDINGS: Lungs/Pleura: No focal opacities evident. No pleural effusion. No pneumothorax. Mediastinum: Within exam limitations, the cardiomediastinal contour is normal. Other: None. IMPRESSION: 1. Nasogastric tube tip extends beyond the inferior margin of the film. 2. No acute intrathoracic plain film abnormality. RADIA
[2018-08-12] MEDS: PANTOPRAZOLE 40 MG VIAL IVP SCH (21:31)
[2018-08-13] MEDS: MORPHINE 2 MG/ML CARPUJECT IVP PRN ×8 (00:55→21:07)
[2018-08-13] MEDS: SODIUM CHLORIDE FLUSH 0.9% 10 ML SYRINGE IVP SCH ×3 (00:56→15:38)
[2018-08-13] MEDS: SODIUM CHLORIDE 0.9% 1,000 ML IV SCH ×2 (03:16→12:07)
[2018-08-13] MEDS: SODIUM CHLORIDE FLUSH 0.9% 10 ML SYRINGE IVP PRN ×2 (03:16→06:19)
[2018-08-13 05:30] LABS: HGB - HEMOGLOBIN 11.5 g/dL (14.0-18.0); MEAN CORPUSCULAR HGB CONC 32.6 g/dL (32.0-36.0); MEAN CORPUSCULAR VOLUME 73.6 fL (80.0-94.0); MEAN PLATELET VOLUME 8.4 fL (7.4-11.4); RED BLOOD COUNT 4.8 10^6/uL (4.70-6.10); RED CELL DISTRIBUTION WIDTH 29.8 % (12.0-15.0); WHITE BLOOD COUNT 4.8 x10^3/uL (4.8-10.8)
[2018-08-13 05:53] LABS: CALCIUM 8.7 mg/dL (8.5-10.3); CREATININE 0.9 mg/dL (0.6-1.2)
[2018-08-13] MEDS: PANTOPRAZOLE 40 MG VIAL IVP SCH ×2 (06:18→15:38)
[2018-08-13] MEDS: NICOTINE 14 MG PATCH TOP SCH (08:09)
[2018-08-13] MEDS: POLYETHYLENE GLYCOL 3350 17 GM PACKET PO SCH (08:10)
[2018-08-13 08:39] LABS: MEAN RETIC VALUE 105.5; RED BLOOD COUNT 4.92 10^6/uL (4.70-6.10)
[2018-08-13 08:44] LABS: % IRON SATURATION 5 % (20-50); IRON 19 ug/dL (45-182); TOTAL IRON BINDING CAPACITY 377 ug/dL (250-450); TRANSFERRIN 269 mg/dL (180-329)
[2018-08-13 08:56] LABS: FERRITIN 8.8 ng/mL (23.9-336.2)
--- NOTE | 2018-08-13 09:21 | CONSULTATION NOTE ---
Referring Provider Consult Date: 08/13/18 Chief Complaint - Chief Complaint Chief Complaint: abdominal pain History of Present Illness - History of Present Illness HPI Comment/Other: 57 yo man who had a small bowel GIST resected 1 month ago. He presents now with abdominal pain, nausea and vomiting. He was admitted from the ER overnight, where a CT showed a SBO. He had an NGT placed. This morning he reports feeling better overall, but still no flatus/BM. History - Past Medical History Cardiovascular: reports: Hypertension Respiratory: reports: Asthma, COPD Neuro: reports: None Endocrine/Autoimmune: reports: None GI: reports: GERD, Ulcers, Colon polyps, Chronic diarrhea, Chronic constipation : reports: None HEENT: reports: None Psych: reports: Anxiety, Claustrophobia Musculoskeletal: reports: Osteoarthritis Derm: reports: None MRSA Hx?: No - Past Surgical History General: reports: Colonoscopy, EGD Ortho: reports: Other - Family & Social History Family History: Mother: , Cancer, Father: , CAD Family History Comment/Other: pt report he is single without child. he is living at [place]. FH CRC in sister who DOD in her 30s and aunt who DOD in her 50s or 60s Social History Notes: pt report he is a heavy current cigarette smoker. he denies alcohol and drug problem - Substance History Use: Uses substance without health or social issues: Tobacco, Alcohol - POLST Patient has POLST: No Meds/Allgy - Home Medications Home Medications: Ambulatory Orders Medication Instructions Recorded Confirmed amLODIPine [Norvasc] 5 mg PO DAILY 10/23/15 07/10/18 Cyclobenzaprine [Flexeril] 5 - 10 mg PO TID PRN 10/24/15 07/10/18 Hydroxyzine HCl 50 mg PO QPM 10/24/15 07/10/18 Acetaminophen [Tylenol] 650 mg PO Q6H PRN #50 tablet 07/14/18 Ibuprofen [Motrin] 600 mg PO Q6HR PRN #30 tablet 07/14/18 Omeprazole 40 mg PO DAILY #30 capsule. 07/14/18 oxyCODONE [Roxicodone] 10 mg PO Q6H PRN #20 tablet 07/14/18 - Allergies Allergies/Adverse Reactions: Allergies Allergy/AdvReac Type Severity Reaction Status Date / Time doxycycline Allergy Severe Edema Verified 08/12/18 16:15 lisinopril Allergy Severe Unknown Verified 08/12/18 16:15 trazodone Allergy Unknown Verified 08/12/18 16:15 NSAIDS (Non-Steroidal AdvReac Intermediate Gastric Verified 08/12/18 16:15 Anti-Inflamma upset aspirin AdvReac Unknown Verified 08/12/18 16:15 NAIDS AdvReac Unknown Uncoded 08/12/18 16:15 Review of Systems - Gastrointestinal Gastrointestinal: reports: Abdominal pain, Abdominal distention, Constipation, Change in bowel habits, Nausea, Vomiting Exam - Vital Signs Vital Signs: Vital Signs x48h Temp Pulse Resp BP Pulse Ox 08/13/18 07:48 36.3 C L 95 22 146/90 H 100 - Physical Exam General Appearance: positive: No acute distress Eyes Bilateral: positive: Normal inspection ENT: positive: ENT inspection nml Neck: positive: Nml inspection Respiratory: positive: Chest non-tender Cardiovascular: positive: Regular rate & rhythm Abdomen: positive: Non-tender Back: positive: Nml inspection Skin: positive: Color nml Extremities: positive: Non-tender Neurologic/Psychiatric: positive: Oriented x3 Conclusion/Plan - Diagnosis Diagnosis: SBO - Plan Plan: Post-operative SBO. Plan to manage non-operatively with hydration, electrolyte replacement, NGT, and minimization of narcotics and other meds that slow GI transit. Will closely monitor for change in status. - Lab Results Lab results reviewed: Yes Fish Bones: 08/13/18 04:55 08/13/18 04:55
[2018-08-13] MEDS ORDERED: FERRIC GLUCONATE 62.5 MG/5 ML VIAL IVP ONE (12:56)
--- NOTE | 2018-08-13 13:02 | PROVIDER PROGRESS NOTE ---
Subjective - Prog Note Date Prog Note Date: 08/13/18 - Subjective Pt reports feeling: Improved Subjective: pt report his abdominal pain and N/V are controlled but still no bowel movement yet. Discuss with pt about care plan, encourage pt safely walk. Current Medications - Current Medications Current Medications: Active Medications Ferric Sodium Gluconate Complex (Ferrlecit) 125 mg IVP ONCE ONE Stop: 08/13/18 12:57 Hydralazine HCl (Apresoline Inj) 5 mg IVP Q4HR PRN PRN Reason: blood pressure Potassium Chloride/Dextrose/Sod Cl () 1,000 mls @ 100 mls/hr IV .Q10H [facility] Morphine Sulfate (Morphine (Carpuject)) 2 mg IVP Q2HR PRN PRN Reason: Pain 8 to 10 Last Admin: 08/13/18 12:15 Dose: 2 mg Nicotine (Nicoderm) 1 patch TOP DAILY [facility] Last Admin: 08/13/18 08:09 Dose: 1 patch Ondansetron HCl (Zofran Inj) 4 mg IVP Q6HR PRN PRN Reason: Nausea / Vomiting Pantoprazole Sodium (Protonix) 40 mg IVP BIDAC [facility] Last Admin: 08/13/18 06:18 Dose: 40 mg Polyethylene Glycol (Miralax) 17 gm PO DAILY [facility] Last Admin: 08/13/18 08:10 Dose: Not Given Prochlorperazine Edisylate (Compazine Inj) 10 mg IVP Q6HR PRN PRN Reason: Nausea / Vomiting Sodium Chloride (Normal Saline Flush 0.9%) 10 ml IVP PRN PRN PRN Reason: NEEDED PER PROVIDER ORDERS Last Admin: 08/13/18 06:19 Dose: 10 ml Sodium Chloride (Normal Saline Flush 0.9%) 10 ml IVP 0100,0900,1700 [facility] Last Admin: 08/13/18 08:10 Dose: Not Given Zolpidem Tartrate (Ambien) 5 mg PO QPM PRN PRN Reason: Insomnia amLODIPine [Norvasc] 5 mg PO DAILY 10/23/15 Cyclobenzaprine [Flexeril] 5 - 10 mg PO TID PRN MDD 30 mg 10/24/15 Acetaminophen 650 mg PO Q4H PRN 08/13/18 Ibuprofen [Advil] 400 mg PO Q4HR PRN 08/13/18 Omeprazole 40 mg PO DAILY 08/13/18 Polyethylene Glycol 3350 [Miralax] 17 gm PO DAILY 08/13/18 Objective - Vital Signs/Intake & Output Reviewed Vital Signs: Yes Vital Signs: Vital Signs x48h Temp Pulse Resp BP Pulse Ox 08/13/18 07:48 36.3 C L 95 22 146/90 H 100 Intake & Output: Intake & Output 08/10/18 08/11/18 08/12/18 08/13/18 23:59 23:59 23:59 23:59 Intake Total 1040 2015.417 Output Total 100 425 Balance 940 1590.417 - Objective General Appearance: positive: No acute distress, Alert. negative: Lethargic Eyes Bilateral: positive: Normal inspection, PERRL, No lid inflammation, Conjunctivae nml ENT: positive: ENT inspection nml, Pharynx nml, No signs of dehydration. negative: Purulent nasal drainage, Pharyngeal erythema, Oral lesions Neck: positive: Nml inspection, Thyroid nml, No JVD, Trachea midline. negative: Lymphadenopathy (L), Stiff neck, Swelling/bruising, Tracheal deviation Respiratory: positive: Chest non-tender, No respiratory distress, Breath sounds nml. negative: Wheezes, Rales, Rhonchi Cardiovascular: positive: Regular rate & rhythm, No murmur, No gallop. negative: Irregularly irregular, Extrasystoles, Tachycardia, Bradycardia, JVD present, Systolic murmur, Diastolic murmur Peripheral Pulses: 2+ Radial (R), 2+ Radial (L), 2+ Dorsalis pedis (R), 2+ Dorsalis pedis (L) Abdomen: positive: Non-tender, No organomegaly, No distention, Other (reduced bowel sound). negative: Tenderness, Guarding, Rebound Back: positive: Nml inspection. negative: CVA tenderness (R), CVA tenderness (L) Skin: positive: Color nml, No rash, Warm, Dry. negative: Cyanosis, Diaphoresis, Pallor Extremities: positive: Non-tender, Full ROM, Nml appearance. negative: Calf tenderness, Joint swelling, Ashlee's sign/cords Neurologic/Psychiatric: positive: Oriented x3, Motor nml, Sensation nml, Mood/affect nml. negative: Weakness, Sensory loss, Facial droop, Slurred/abnml speech, Depressed mood/affect - Lab Results Fish Bones: 08/13/18 04:55 08/13/18 04:55 Other Labs: Lab Results x24hrs 08/13/18 08/13/18 08/13/18 Range/Units 08:14 08:14 08:14 WBC (4.8-10.8) x10^3/uL RBC (4.70-6.10) 10^6/uL Hgb (14.0-18.0) g/dL Hct (42.0-52.0) % MCV (80.0-94.0) fL MCH (27.0-31.0) pg MCHC (32.0-36.0) g/dL RDW (12.0-15.0) % Plt Count (130-450) 10^3/uL MPV (7.4-11.4) fL Reticulocyte % (Auto) (0.5-2.3) % Neut # (Auto) (1.5-6.6) 10^3/uL Lymph # (Auto) (1.5-3.5) 10^3/uL [place] # (Auto) (0.0-1.0) 10^3/uL Eos # (Auto) (0.0-0.7) 10^3/uL Baso # (Auto) (0.0-0.1) 10^3/uL Absolute Nucleated RBC x10^3/uL Nucleated RBC % /100WBC Manual Slide Review WBC Morphology (NORMAL) Platelet Estimate (NORMAL) Platelet Morphology (NORMAL) RBC Morph Micro Appear (NORMAL) Absolute Retic (0.020-0.110) 10^6/uL Sodium (135-145) mmol/L Potassium (3.5-5.0) mmol/L Chloride (101-111) mmol/L Carbon Dioxide (21-32) mmol/L Anion Gap (6-13) BUN (6-20) mg/dL Creatinine (0.6-1.2) mg/dL Estimated GFR (MDRD) (>89) Glucose (70-100) mg/dL Calcium (8.5-10.3) mg/dL Iron 19 L (45-182) ug/dL TIBC 377 (250-450) ug/dL % Saturation 5 L (20-50) % Transferrin 269 (180-329) mg/dL Ferritin 8.8 L (23.9-336.2) ng/mL Total Bilirubin (0.2-1.0) mg/dL AST (10-42) IU/L ALT (10-60) IU/L Alkaline Phosphatase (42-121) IU/L Lactate Dehydrogenase 108 (91-225) IU/L Total Protein (6.7-8.2) g/dL Albumin (3.2-5.5) g/dL Globulin (2.1-4.2) g/dL Albumin/Globulin Ratio (1.0-2.2) Lipase (22-51) U/L Vitamin B12 569 (180-914) pg/mL Urine Color Urine Clarity (CLEAR) Urine pH (5.0-7.5) PH Ur Specific [place] (1.002-1.030) Urine Protein (NEGATIVE) mg/dL Urine Glucose (UA) (NEGATIVE) mg/dL Urine Ketones (NEGATIVE) mg/dL Urine Occult Blood (NEGATIVE) Urine Nitrite (NEGATIVE) Urine Bilirubin (NEGATIVE) Urine Urobilinogen (NORMAL) E.U./dL Ur Leukocyte Esterase (NEGATIVE) Urine RBC (0-5) /HPF Urine WBC (0-3) /HPF Ur Squamous Epith Cells (<= Few) Urine Bacteria (None Seen) /HPF Urine Mucus Ur Microscopic Review Urine Culture Comments Blood Type Antibody Screen 08/13/18 08/13/18 08/13/18 Range/Units 08:14 04:55 04:55 WBC 4.8 (4.8-10.8) x10^3/uL RBC 4.92 4.80 (4.70-6.10) 10^6/uL Hgb 11.5 L (14.0-18.0) g/dL Hct 35.3 L (42.0-52.0) % MCV 73.6 L (80.0-94.0) fL MCH 24.0 L (27.0-31.0) pg MCHC 32.6 (32.0-36.0) g/dL RDW 29.8 H (12.0-15.0) % Plt Count 349 (130-450) 10^3/uL MPV 8.4 (7.4-11.4) fL Reticulocyte % (Auto) 0.36 L (0.5-2.3) % Neut # (Auto) (1.5-6.6) 10^3/uL Lymph # (Auto) (1.5-3.5) 10^3/uL [place] # (Auto) (0.0-1.0) 10^3/uL Eos # (Auto) (0.0-0.7) 10^3/uL Baso # (Auto) (0.0-0.1) 10^3/uL Absolute Nucleated RBC x10^3/uL Nucleated RBC % /100WBC Manual Slide Review WBC Morphology (NORMAL) Platelet Estimate (NORMAL) Platelet Morphology (NORMAL) RBC Morph Micro Appear (NORMAL) Absolute Retic 0.018 L (0.020-0.110) 10^6/uL Sodium 127 L (135-145) mmol/L Potassium 3.9 (3.5-5.0) mmol/L Chloride 95 L (101-111) mmol/L Carbon Dioxide 23 (21-32) mmol/L Anion Gap 9.0 (6-13) BUN 15 (6-20) mg/dL Creatinine 0.9 (0.6-1.2) mg/dL Estimated GFR (MDRD) 86 L (>89) Glucose 105 H (70-100) mg/dL Calcium 8.7 (8.5-10.3) mg/dL Iron (45-182) ug/dL TIBC (250-450) ug/dL % Saturation (20-50) % Transferrin (180-329) mg/dL Ferritin (23.9-336.2) ng/mL Total Bilirubin (0.2-1.0) mg/dL AST (10-42) IU/L ALT (10-60) IU/L Alkaline Phosphatase (42-121) IU/L Lactate Dehydrogenase (91-225) IU/L Total Protein (6.7-8.2) g/dL Albumin (3.2-5.5) g/dL Globulin (2.1-4.2) g/dL Albumin/Globulin Ratio (1.0-2.2) Lipase (22-51) U/L Vitamin B12 (180-914) pg/mL Urine Color Urine Clarity (CLEAR) Urine pH (5.0-7.5) PH Ur Specific [place] (1.002-1.030) Urine Protein (NEGATIVE) mg/dL Urine Glucose (UA) (NEGATIVE) mg/dL Urine Ketones (NEGATIVE) mg/dL Urine Occult Blood (NEGATIVE) Urine Nitrite (NEGATIVE) Urine Bilirubin (NEGATIVE) Urine Urobilinogen (NORMAL) E.U./dL Ur Leukocyte Esterase (NEGATIVE) Urine RBC (0-5) /HPF Urine WBC (0-3) /HPF Ur Squamous Epith Cells (<= Few) Urine Bacteria (None Seen) /HPF Urine Mucus Ur Microscopic Review Urine Culture Comments Blood Type Antibody Screen 08/12/18 08/12/18 08/12/18 Range/Units 17:21 16:33 16:33 WBC (4.8-10.8) x10^3/uL RBC (4.70-6.10) 10^6/uL Hgb (14.0-18.0) g/dL Hct (42.0-52.0) % MCV (80.0-94.0) fL MCH (27.0-31.0) pg MCHC (32.0-36.0) g/dL RDW (12.0-15.0) % Plt Count (130-450) 10^3/uL MPV (7.4-11.4) fL Reticulocyte % (Auto) (0.5-2.3) % Neut # (Auto) (1.5-6.6) 10^3/uL Lymph # (Auto) (1.5-3.5) 10^3/uL [place] # (Auto) (0.0-1.0) 10^3/uL Eos # (Auto) (0.0-0.7) 10^3/uL Baso # (Auto) (0.0-0.1) 10^3/uL Absolute Nucleated RBC x10^3/uL Nucleated RBC % /100WBC Manual Slide Review WBC Morphology (NORMAL) Platelet Estimate (NORMAL) Platelet Morphology (NORMAL) RBC Morph Micro Appear (NORMAL) Absolute Retic (0.020-0.110) 10^6/uL Sodium 125 L (135-145) mmol/L Potassium 4.0 (3.5-5.0) mmol/L Chloride 89 L (101-111) mmol/L Carbon Dioxide 25 (21-32) mmol/L Anion Gap 11.0 (6-13) BUN 13 (6-20) mg/dL Creatinine 1.1 (0.6-1.2) mg/dL Estimated GFR (MDRD) 69 L (>89) Glucose 151 H (70-100) mg/dL Calcium 9.7 (8.5-10.3) mg/dL Iron (45-182) ug/dL TIBC (250-450) ug/dL % Saturation (20-50) % Transferrin (180-329) mg/dL Ferritin (23.9-336.2) ng/mL Total Bilirubin 0.4 (0.2-1.0) mg/dL AST 28 (10-42) IU/L ALT 21 (10-60) IU/L Alkaline Phosphatase 123 H (42-121) IU/L Lactate Dehydrogenase (91-225) IU/L Total Protein 9.1 H (6.7-8.2) g/dL Albumin 4.7 (3.2-5.5) g/dL Globulin 4.4 H (2.1-4.2) g/dL Albumin/Globulin Ratio 1.1 (1.0-2.2) Lipase 26 (22-51) U/L Vitamin B12 (180-914) pg/mL Urine Color DARK YELLOW Urine Clarity CLEAR (CLEAR) Urine pH 6.5 (5.0-7.5) PH Ur Specific [place] 1.025 (1.002-1.030) Urine Protein 100 H (NEGATIVE) mg/dL Urine Glucose (UA) NEGATIVE (NEGATIVE) mg/dL Urine Ketones TRACE (NEGATIVE) mg/dL Urine Occult Blood NEGATIVE (NEGATIVE) Urine Nitrite NEGATIVE (NEGATIVE) Urine Bilirubin NEGATIVE (NEGATIVE) Urine Urobilinogen 0.2 (NORMAL) (NORMAL) E.U./dL Ur Leukocyte Esterase NEGATIVE (NEGATIVE) Urine RBC 0-5 (0-5) /HPF Urine WBC 4-5 (0-3) /HPF Ur Squamous Epith Cells RARE Squamous (<= Few) Urine Bacteria None Seen (None Seen) /HPF Urine Mucus Marked Strands Ur Microscopic Review INDICATED Urine Culture Comments NOT INDICATED Blood Type O POSITIVE Antibody Screen NEGATIVE 08/12/18 Range/Units 16:33 WBC 8.9 (4.8-10.8) x10^3/uL RBC 5.70 (4.70-6.10) 10^6/uL Hgb 13.3 L (14.0-18.0) g/dL Hct 41.8 L (42.0-52.0) % MCV 73.3 L (80.0-94.0) fL MCH 23.4 L (27.0-31.0) pg MCHC 31.9 L (32.0-36.0) g/dL RDW 30.3 H (12.0-15.0) % Plt Count 419 (130-450) 10^3/uL MPV 8.2 (7.4-11.4) fL Reticulocyte % (Auto) (0.5-2.3) % Neut # (Auto) 6.8 H (1.5-6.6) 10^3/uL Lymph # (Auto) 0.8 L (1.5-3.5) 10^3/uL [place] # (Auto) 1.1 H (0.0-1.0) 10^3/uL Eos # (Auto) 0.1 (0.0-0.7) 10^3/uL Baso # (Auto) 0.2 H (0.0-0.1) 10^3/uL Absolute Nucleated RBC 0.01 x10^3/uL Nucleated RBC % 0.1 /100WBC Manual Slide Review Indicated WBC Morphology NORMAL APPEARANCE (NORMAL) Platelet Estimate NORMAL (130-450,000) (NORMAL) Platelet Morphology NORMAL APPEARANCE (NORMAL) RBC Morph Micro Appear 1+ MICROCYTOSIS (NORMAL) Absolute Retic (0.020-0.110) 10^6/uL Sodium (135-145) mmol/L Potassium (3.5-5.0) mmol/L Chloride (101-111) mmol/L Carbon Dioxide (21-32) mmol/L Anion Gap (6-13) BUN (6-20) mg/dL Creatinine (0.6-1.2) mg/dL Estimated GFR (MDRD) (>89) Glucose (70-100) mg/dL Calcium (8.5-10.3) mg/dL Iron (45-182) ug/dL TIBC (250-450) ug/dL % Saturation (20-50) % Transferrin (180-329) mg/dL Ferritin (23.9-336.2) ng/mL Total Bilirubin (0.2-1.0) mg/dL AST (10-42) IU/L ALT (10-60) IU/L Alkaline Phosphatase (42-121) IU/L Lactate Dehydrogenase (91-225) IU/L Total Protein (6.7-8.2) g/dL Albumin (3.2-5.5) g/dL Globulin (2.1-4.2) g/dL Albumin/Globulin Ratio (1.0-2.2) Lipase (22-51) U/L Vitamin B12 (180-914) pg/mL Urine Color Urine Clarity (CLEAR) Urine pH (5.0-7.5) PH Ur Specific [place] (1.002-1.030) Urine Protein (NEGATIVE) mg/dL Urine Glucose (UA) (NEGATIVE) mg/dL Urine Ketones (NEGATIVE) mg/dL Urine Occult Blood (NEGATIVE) Urine Nitrite (NEGATIVE) Urine Bilirubin (NEGATIVE) Urine Urobilinogen (NORMAL) E.U./dL Ur Leukocyte Esterase (NEGATIVE) Urine RBC (0-5) /HPF Urine WBC (0-3) /HPF Ur Squamous Epith Cells (<= Few) Urine Bacteria (None Seen) /HPF Urine Mucus Ur Microscopic Review Urine Culture Comments Blood Type Antibody Screen ABX Reporting Has patient been on IV antibiotics over the past 48 hours?: No Sepsis Event Note (H) - Evaluation Current Stage of Sepsis: Ruled out Assessment/Plan - Problem List (1) SBO (small bowel obstruction) Impression: some improved. abdominal pain, N/V are controlled. but pt is still no bowel movement yet. consult with surgeon, will follow up encourage pt safely walk IVF of D5 NS pain controlled, reduced opiates as can NPO with NG tube now (2) HTN (hypertension) Conclusion/Plan: stable, continue IV of hydralazine PRN will resume home after pt advance for diet Would like to hold off on any oral medications, so rather than his home amlodipine, will add IV hydralazine as needed for blood pressure control until his diet can be advanced to allow oral medications. (3) Hyponatremia Conclusion/Plan: Likely related to GI loss and hypovolemia, slight improved to Na 127 continue IVF of D5 NS continue lab monitor (4) Tobacco abuse Conclusion/Plan: History of tobacco abuse, will place patient on nicotine patch and counseled to quit (5) Hx of gastric ulcer Conclusion/Plan: Patient takes PPI at home, will be put on twice daily PPI given his recent symptoms and recent surgery.
[2018-08-13] MEDS ORDERED: FERRIC GLUCONATE 62.5 MG/5 ML VIAL IVP SCH (14:00)
[2018-08-13] MEDS ORDERED: FERRIC GLUCONATE 125 MG in SODIUM CHLORIDE 0.9% 100ML 100 ML IV SCH (14:00)
[2018-08-13] MEDS: D5NS W/20 MEQ KCL 1,000 ML IV SCH (14:01)
[2018-08-14] MEDS: SODIUM CHLORIDE FLUSH 0.9% 10 ML SYRINGE IVP SCH ×3 (01:32→16:59)
[2018-08-14] MEDS: D5NS W/20 MEQ KCL 1,000 ML IV SCH ×3 (01:32→22:00)
[2018-08-14 05:58] LABS: HGB - HEMOGLOBIN 10.3 g/dL (14.0-18.0); MEAN CORPUSCULAR HEMOGLOBIN 23.6 pg (27.0-31.0); MEAN CORPUSCULAR HGB CONC 31.8 g/dL (32.0-36.0); MEAN CORPUSCULAR VOLUME 74.1 fL (80.0-94.0); MEAN PLATELET VOLUME 8.2 fL (7.4-11.4); RED BLOOD COUNT 4.37 10^6/uL (4.70-6.10); RED CELL DISTRIBUTION WIDTH 29.7 % (12.0-15.0); WHITE BLOOD COUNT 3.9 x10^3/uL (4.8-10.8)
[2018-08-14 06:11] LABS: CALCIUM 8.5 mg/dL (8.5-10.3); CREATININE 0.5 mg/dL (0.6-1.2)
[2018-08-14] MEDS: PANTOPRAZOLE 40 MG VIAL IVP SCH ×2 (06:41→16:59)
[2018-08-14] MEDS: SODIUM CHLORIDE FLUSH 0.9% 10 ML SYRINGE IVP PRN ×2 (06:41→16:59)
--- NOTE | 2018-08-14 09:08 | PROVIDER PROGRESS NOTE ---
Subjective - Prog Note Date Prog Note Date: 08/14/18 Prog Note Time: 09:07 - Subjective Pt reports feeling: Improved Subjective: Pt reports less pain today and states he has started passing gas. Objective - Vital Signs/Intake & Output Vital Signs: Vital Signs x48h Temp Pulse Resp BP Pulse Ox 08/14/18 07:55 36.4 C L 65 18 168/90 H 99 08/14/18 01:10 36.9 C 89 16 156/87 H 97 Intake & Output: Intake & Output 08/11/18 08/12/18 08/13/18 08/14/18 23:59 23:59 23:59 23:59 Intake Total 1040 2445.417 1100 Output Total 100 1800 550 Balance 940 645.417 550 - Objective General Appearance: positive: No acute distress Eyes Bilateral: positive: Normal inspection ENT: positive: ENT inspection nml Neck: positive: Nml inspection Respiratory: positive: Chest non-tender Cardiovascular: positive: Regular rate & rhythm Abdomen: positive: Tenderness Back: positive: Nml inspection Skin: positive: Color nml Extremities: positive: Non-tender Neurologic/Psychiatric: positive: Oriented x3 - Lab Results Fish Bones: 08/14/18 04:55 08/14/18 04:55 Other Labs: Lab Results x24hrs 08/14/18 08/14/18 Range/Units 04:55 04:55 WBC 3.9 L (4.8-10.8) x10^3/uL RBC 4.37 L (4.70-6.10) 10^6/uL Hgb 10.3 L (14.0-18.0) g/dL Hct 32.4 L (42.0-52.0) % MCV 74.1 L (80.0-94.0) fL MCH 23.6 L (27.0-31.0) pg MCHC 31.8 L (32.0-36.0) g/dL RDW 29.7 H (12.0-15.0) % Plt Count 334 (130-450) 10^3/uL MPV 8.2 (7.4-11.4) fL Sodium 132 L (135-145) mmol/L Potassium 4.0 (3.5-5.0) mmol/L Chloride 102 (101-111) mmol/L Carbon Dioxide 23 (21-32) mmol/L Anion Gap 7.0 (6-13) BUN 13 (6-20) mg/dL Creatinine 0.5 L (0.6-1.2) mg/dL Estimated GFR (MDRD) 170 (>89) Glucose 106 H (70-100) mg/dL Calcium 8.5 (8.5-10.3) mg/dL Sepsis Event Note (H) - Evaluation Current Stage of Sepsis: Ruled out Assessment/Plan - Problem List (1) SBO (small bowel obstruction) Impression: Pt appears to be resolving. Plan to continue conservative measures.
[2018-08-14] MEDS: POLYETHYLENE GLYCOL 3350 17 GM PACKET PO SCH (09:29)
[2018-08-14] MEDS: NICOTINE 14 MG PATCH TOP SCH (09:29)
--- NOTE | 2018-08-14 11:18 | XRAY Report ---
Reason: SBO Procedure Date: 08/14/2018 Accession Number: [id number] / [id number] Procedure: XR - Abdomen 2 View X-Ray CPT Code: 95827 FULL RESULT: EXAM: ABDOMEN RADIOGRAPHY EXAM DATE: 08/14/2018 09:00 AM. CLINICAL HISTORY: SBO. COMPARISON: None. TECHNIQUE: 2 views. FINDINGS: Lung Bases: Unremarkable. Bowel Gas Pattern: Air-fluid loops with dilated small bowel measuring up to 4.4 cm. There is a small amount of air in colon Free Air: None. Other: Postop changes left femur IMPRESSION: Small bowel obstruction appears similar. RADIA
--- NOTE | 2018-08-14 18:26 | PROVIDER PROGRESS NOTE ---
Subjective - Prog Note Date Prog Note Date: 08/14/18 - Subjective Pt reports feeling: Improved Subjective: pt report he feel better, no N/V, no abdominal pain, pass a little gas. but he is still not bowel movement yet Current Medications - Current Medications Current Medications: Active Medications Acetaminophen (Tylenol) 650 mg PO Q4HR PRN PRN Reason: Pain or Fever > 38C (100.4F) Docusate Sodium (Colace 250mg Capsule) 250 - 500 mg PO DAILY [facility] Last Admin: 08/15/18 08:46 Dose: 250 mg Hydralazine HCl (Apresoline Inj) 5 mg IVP Q4HR PRN PRN Reason: blood pressure Potassium Chloride/Dextrose/Sod Cl () 1,000 mls @ 100 mls/hr IV .Q10H [facility] Last Admin: 08/15/18 10:06 Dose: 100 mls/hr Morphine Sulfate (Morphine (Carpuject)) 2 mg IVP Q2HR PRN PRN Reason: Pain 8 to 10 Last Admin: 08/13/18 21:07 Dose: 2 mg Nicotine (Nicoderm) 1 patch TOP DAILY [facility] Last Admin: 08/15/18 08:45 Dose: 1 patch Ondansetron HCl (Zofran Inj) 4 mg IVP Q6HR PRN PRN Reason: Nausea / Vomiting Pantoprazole Sodium (Protonix) 40 mg IVP BIDAC [facility] Last Admin: 08/15/18 05:56 Dose: 40 mg Polyethylene Glycol (Miralax) 17 gm PO DAILY [facility] Last Admin: 08/15/18 08:44 Dose: 17 gm Prochlorperazine Edisylate (Compazine Inj) 10 mg IVP Q6HR PRN PRN Reason: Nausea / Vomiting Sodium Chloride (Normal Saline Flush 0.9%) 10 ml IVP PRN PRN PRN Reason: NEEDED PER PROVIDER ORDERS Last Admin: 08/15/18 05:56 Dose: 10 ml Sodium Chloride (Normal Saline Flush 0.9%) 10 ml IVP 0100,0900,1700 [facility] Last Admin: 08/15/18 08:44 Dose: 10 ml Tramadol HCl (Ultram) 100 mg PO Q4HR PRN PRN Reason: PAIN Zolpidem Tartrate (Ambien) 5 mg PO QPM PRN PRN Reason: Insomnia Last Admin: 08/13/18 22:59 Dose: 5 mg amLODIPine [Norvasc] 5 mg PO DAILY 10/23/15 Cyclobenzaprine [Flexeril] 5 - 10 mg PO TID PRN MDD 30 mg 10/24/15 Acetaminophen 650 mg PO Q4H PRN 08/13/18 Ibuprofen [Advil] 400 mg PO Q4HR PRN 08/13/18 Omeprazole 40 mg PO DAILY 08/13/18 Polyethylene Glycol 3350 [Miralax] 17 gm PO DAILY 08/13/18 Objective - Vital Signs/Intake & Output Reviewed Vital Signs: Yes Vital Signs: Vital Signs x48h Temp Pulse Resp BP Pulse Ox 08/14/18 16:00 36.4 C L 79 20 169/94 H 100 Intake & Output: Intake & Output 08/11/18 08/12/18 08/13/18 08/14/18 23:59 23:59 23:59 23:59 Intake Total 1040 2445.417 2170 Output Total 100 1800 1050 Balance 940 926.555 2595 - Objective General Appearance: positive: No acute distress, Alert. negative: Lethargic Eyes Bilateral: positive: Normal inspection, PERRL, No lid inflammation, Conjunctivae nml ENT: positive: ENT inspection nml, Pharynx nml, No signs of dehydration. negative: Purulent nasal drainage, Pharyngeal erythema, Oral lesions Neck: positive: Nml inspection, Thyroid nml, No JVD, Trachea midline. negative: Thyromegaly, Lymphadenopathy (R), Lymphadenopathy (L), Stiff neck, Carotid bruit, Swelling/bruising, Tracheal deviation Respiratory: positive: Chest non-tender, No respiratory distress, Breath sounds nml. negative: Wheezes, Rales, Rhonchi Cardiovascular: positive: Regular rate & rhythm, No murmur, No gallop. negative: Irregularly irregular, Extrasystoles, Tachycardia, Bradycardia, JVD present, Systolic murmur, Diastolic murmur Peripheral Pulses: 2+ Radial (R), 2+ Radial (L), 2+ Dorsalis pedis (R), 2+ Dorsalis pedis (L) Abdomen: positive: Non-tender, No organomegaly. negative: No distention, Tenderness, Guarding, Rebound Back: positive: Nml inspection. negative: CVA tenderness (R), CVA tenderness (L) Skin: positive: Color nml, No rash, Warm, Dry. negative: Cyanosis, Diaphoresis, Pallor Extremities: positive: Non-tender, Full ROM, Nml appearance. negative: Pedal edema, Calf tenderness Neurologic/Psychiatric: positive: Oriented x3, Motor nml, Sensation nml, Mood/affect nml. negative: Weakness, Sensory loss, Facial droop, Slurred/abnml speech, Depressed mood/affect - Lab Results Fish Bones: 08/15/18 04:40 08/15/18 04:40 Other Labs: Lab Results x24hrs 08/14/18 08/14/18 Range/Units 04:55 04:55 WBC 3.9 L (4.8-10.8) x10^3/uL RBC 4.37 L (4.70-6.10) 10^6/uL Hgb 10.3 L (14.0-18.0) g/dL Hct 32.4 L (42.0-52.0) % MCV 74.1 L (80.0-94.0) fL MCH 23.6 L (27.0-31.0) pg MCHC 31.8 L (32.0-36.0) g/dL RDW 29.7 H (12.0-15.0) % Plt Count 334 (130-450) 10^3/uL MPV 8.2 (7.4-11.4) fL Sodium 132 L (135-145) mmol/L Potassium 4.0 (3.5-5.0) mmol/L Chloride 102 (101-111) mmol/L Carbon Dioxide 23 (21-32) mmol/L Anion Gap 7.0 (6-13) BUN 13 (6-20) mg/dL Creatinine 0.5 L (0.6-1.2) mg/dL Estimated GFR (MDRD) 170 (>89) Glucose 106 H (70-100) mg/dL Calcium 8.5 (8.5-10.3) mg/dL ABX Reporting Has patient been on IV antibiotics over the past 48 hours?: No Sepsis Event Note (H) - Evaluation Current Stage of Sepsis: Ruled out Assessment/Plan - Problem List (1) SBO (small bowel obstruction) Impression: 08/14 KUB indicate pt still has SBO. pt also did not pass bowel movement yet will followup surgeon continue ambulate continue IVF with D5 pain controlled, reduced opiates as can NPO with NG tube now some improved. abdominal pain, N/V are controlled. but pt is still no bowel movement yet. consult with surgeon, will follow up encourage pt safely walk IVF of D5 NS pain controlled, reduced opiates as can NPO with NG tube now (2) HTN (hypertension) Conclusion/Plan: stable, continue IV of hydralazine PRN will resume home after pt advance for diet Would like to hold off on any oral medications, so rather than his home a mlodipine, will add IV hydralazine as needed for blood pressure control until his diet can be advanced to allow oral medications. (3) Hyponatremia Conclusion/Plan: chronic hyponatremia improved, continue D5 NS of IVF Likely related to GI loss and hypovolemia, slight improved to Na 127 continue IVF of D5 NS continue lab monitor (4) Tobacco abuse Conclusion/Plan: History of tobacco abuse, will place patient on nicotine patch and counseled to quit (5) Hx of gastric ulcer Conclusion/Plan: Patient takes PPI at home, will be put on twice daily PPI given his recent symptoms and recent surgery.
[2018-08-14] MEDS ORDERED: FERRIC GLUCONATE 62.5 MG/5 ML VIAL IVP ONE (18:47)
[2018-08-14] MEDS: DOCUSATE SODIUM 250 MG CAPSULE PO SCH (21:49)
[2018-08-15] MEDS: SODIUM CHLORIDE FLUSH 0.9% 10 ML SYRINGE IVP SCH ×2 (00:24→08:44)
[2018-08-15] MEDS ORDERED: ACETAMINOPHEN 325 MG TABLET PO PRN (01:17)
[2018-08-15] MEDS ORDERED: traMADol 50 MG TABLET PO PRN (01:19)
[2018-08-15 05:13] LABS: HGB - HEMOGLOBIN 10.8 g/dL (14.0-18.0); MEAN CORPUSCULAR HEMOGLOBIN 23.9 pg (27.0-31.0); MEAN CORPUSCULAR HGB CONC 32.8 g/dL (32.0-36.0); MEAN PLATELET VOLUME 8.4 fL (7.4-11.4); RED BLOOD COUNT 4.53 10^6/uL (4.70-6.10); WHITE BLOOD COUNT 5.7 x10^3/uL (4.8-10.8)
[2018-08-15 05:14] LABS: CALCIUM 8.5 mg/dL (8.5-10.3); CREATININE 0.4 mg/dL (0.6-1.2)
[2018-08-15] MEDS: SODIUM CHLORIDE FLUSH 0.9% 10 ML SYRINGE IVP PRN (05:56)
[2018-08-15] MEDS: PANTOPRAZOLE 40 MG VIAL IVP SCH (05:56)
[2018-08-15 08:02] VITALS: BP 161/85
[2018-08-15] MEDS: POLYETHYLENE GLYCOL 3350 17 GM PACKET PO SCH (08:44)
[2018-08-15] MEDS: NICOTINE 14 MG PATCH TOP SCH (08:45)
[2018-08-15] MEDS: DOCUSATE SODIUM 250 MG CAPSULE PO SCH (08:46)
[2018-08-15] MEDS ORDERED: DOCUSATE SODIUM 250 MG CAPSULE PO SCH (09:00)
[2018-08-15] MEDS ORDERED: FERRIC GLUCONATE 125 MG in SODIUM CHLORIDE 0.9% 100ML 100 ML IV ONE (09:00)
--- NOTE | 2018-08-15 09:43 | PROVIDER PROGRESS NOTE ---
Subjective - Prog Note Date Prog Note Date: 08/15/18 Prog Note Time: 09:41 - Subjective Pt reports feeling: Improved (Pt had 5 BMs overnight and now has no abdominal pain.) Objective - Vital Signs/Intake & Output Vital Signs: Vital Signs x48h Temp Pulse Resp BP Pulse Ox 08/15/18 08:02 36.4 C L 76 18 161/85 H 98 Intake & Output: Intake & Output 08/12/18 08/13/18 08/14/18 08/15/18 23:59 23:59 23:59 23:59 Intake Total 1040 2445.417 3430 2020 Output Total 100 1800 1550 1000 Balance 940 422.516 1788 1020 - Objective General Appearance: positive: No acute distress Eyes Bilateral: positive: Normal inspection ENT: positive: ENT inspection nml Neck: positive: Nml inspection Respiratory: positive: Chest non-tender Cardiovascular: positive: Regular rate & rhythm Abdomen: positive: Non-tender Skin: positive: Color nml Extremities: positive: Non-tender Neurologic/Psychiatric: positive: Oriented x3 - Lab Results Fish Bones: 08/15/18 04:40 08/15/18 04:40 Other Labs: Lab Results x24hrs 08/15/18 08/15/18 Range/Units 04:40 04:40 WBC 5.7 (4.8-10.8) x10^3/uL RBC 4.53 L (4.70-6.10) 10^6/uL Hgb 10.8 L (14.0-18.0) g/dL Hct 33.0 L (42.0-52.0) % MCV 73.0 L (80.0-94.0) fL MCH 23.9 L (27.0-31.0) pg MCHC 32.8 (32.0-36.0) g/dL RDW 29.0 H (12.0-15.0) % Plt Count 350 (130-450) 10^3/uL MPV 8.4 (7.4-11.4) fL Sodium 126 L (135-145) mmol/L Potassium 3.3 L (3.5-5.0) mmol/L Chloride 95 L (101-111) mmol/L Carbon Dioxide 23 (21-32) mmol/L Anion Gap 8.0 (6-13) BUN 6 (6-20) mg/dL Creatinine 0.4 L (0.6-1.2) mg/dL Estimated GFR (MDRD) 220 (>89) Glucose 109 H (70-100) mg/dL Calcium 8.5 (8.5-10.3) mg/dL Sepsis Event Note (H) - Evaluation Current Stage of Sepsis: Ruled out Assessment/Plan - Problem List (1) SBO (small bowel obstruction) Impression: Pt has recovered from the SBO. He is now eating and having BMs. Plan on discharge later today.
[2018-08-15] MEDS: POTASSIUM CHLOR 10 MEQ/100 ML 10 MEQ/100 ML BAG IV SCH ×2 (10:06→11:21)
[2018-08-15] MEDS: D5NS W/20 MEQ KCL 1,000 ML IV SCH (10:06)
--- NOTE | 2018-08-15 12:48 | Discharge Plan ---
Discharge Plan Disposition: Home, Self Care Condition: Poor Prescriptions: Ferrous Sulfate 325 mg PO DAILY #15 tablet Diet: Regular Activity Restrictions: Activity as Tolerated Shower Restrictions: No (fall precaution) Instruction Topics: Obstruction Sm Bowel, Anemia Iron Deficiency Ch Additional Instructions or Follow Up instructions: you may followup your PCP in two weeks. You had couple times of bowel movement and tolerated the diet. Your small bowel obstruction is resolved now. Should your symptoms return or worsen, you may present ER, call 911 or call your PCP for help. No Smoking: If you smoke, Please STOP! Call for help. Follow-up with: Allie Barrientos ARNP [Primary Care Provider] -
--- NOTE | 2018-08-15 12:53 | DISCHARGE SUMMARY ---
"Discharge Summary Discharge Date: 08/15/18 Discharging Provider: DEL TORO Primary Care Provider: Allie Rodriguez Condition at Discharge: Poor Discharge Disposition: 01 Home, Self Care Discharge Facility Name: home - DIAGNOSES Admission Diagnoses: (1) SBO (small bowel obstruction) (2) HTN (hypertension) (3) Hyponatremia (4) Tobacco abuse (5) Hx of gastric ulcer Discharge Diagnoses with Status of Each Condition: (1) SBO (small bowel obstruction) resolved. pt had 6 bowel movements and he tolerate regular diet. N/V and abdominal pain were resolved (2) HTN (hypertension) stable, followup PCP management (3) Hyponatremia chronic hyponatremia, stable, followup PCP management (4) Tobacco abuse advise pt quit, he state he will (5) Hx of gastric ulcer stable, followup PCP management - HPI History of Present Illness: refer from Dr. Herron's HPI for pt as the following: Patient is a 57-year-old male with past medical history of hypertension, tobacco abuse, GERD, peptic ulcer, who last month was diagnosed with a intra-abdominal mass after presenting with anemia sufficient to have patient received 2 units of PRBCs, followed by upper GI series not demonstrate dose of source of bleeding, leading to the CT scan of the abdomen demonstrating an abdominal mass that was taken out surgically on 07/10/2018, somewhat complicated by rupturing of the mass. Patient states that he has essentially been having abdominal pain since the surgery however it has been gradually worsening in the last couple of days he has had intractable vomiting of feculent material and today has had no bowel movements or flatus. He does report some subjective fevers with chills at home. CT scan done here in the emergency department is significant for showing a mildly dilated Small bowelUp to 3.5 cm. General surgery on-call, Dr. Fulton, was notified.He recommended the patient be admitted to the hospitalist service with NG tube suction and he will see the patient tomorrow morning. - CONSULTS | PROCEDURES Consultations: GI surgeon Dr. Fulton Procedures: no procedure. pt resolved his SBO by his own - HOSPITAL COURSE Hospital Course: pt was admitted for SBO. pt ambulate, has NPO with NG. SBO was resolved. pt had 6 bowel movements and he tolerate regular diet. N/V and abdominal pain were resolved - ALLERGIES Allergies/Adverse Reactions: Allergies Allergy/AdvReac Type Severity Reaction Status Date / Time doxycycline Allergy Severe Edema Verified 08/12/18 16:15 lisinopril Allergy Severe Unknown Verified 08/12/18 16:15 trazodone Allergy Unknown Verified 08/12/18 16:15 NSAIDS (Non-Steroidal AdvReac Intermediate Gastric Verified 08/12/18 16:15 Anti-Inflamma upset aspirin AdvReac Unknown Verified 08/12/18 16:15 NAIDS AdvReac Unknown Uncoded 08/12/18 16:15 - MEDICATIONS Home Medications: Ambulatory Orders Medication Instructions Recorded Confirmed amLODIPine [Norvasc] 5 mg PO DAILY 10/23/15 08/13/18 Cyclobenzaprine [Flexeril] 5 - 10 mg PO TID PRN MDD 30 mg 10/24/15 08/13/18 Acetaminophen 650 mg PO Q4H PRN 08/13/18 08/13/18 Ibuprofen [Advil] 400 mg PO Q4HR PRN 08/13/18 08/13/18 Omeprazole 40 mg PO DAILY 08/13/18 08/13/18 Polyethylene Glycol 3350 [Miralax] 17 gm PO DAILY 08/13/18 08/13/18 Ferrous Sulfate 325 mg PO DAILY #15 tablet 08/15/18 - PHYSICAL EXAM AT DISCHARGE General Appearance: positive: No acute distress, Alert. negative: Lethargic Eyes Bilateral: positive: Normal inspection, PERRL, No lid inflammation, Conjunctivae nml ENT: positive: ENT inspection nml, Pharynx nml, No signs of dehydration. negative: Purulent nasal drainage, Pharyngeal erythema, Oral lesions Neck: positive: Nml inspection, Thyroid nml, No JVD, Trachea midline. negative: Thyromegaly, Lymphadenopathy (R), Lymphadenopathy (L), Stiff neck, Swelling/bruising, Tracheal deviation Respiratory: positive: Chest non-tender, No respiratory distress, Breath sounds nml. negative: Wheezes, Rales, Rhonchi Cardiovascular: positive: Regular rate & rhythm, No murmur, No gallop. negativ e: Irregularly irregular, Extrasystoles, Tachycardia, Bradycardia, JVD present, Systolic murmur, Diastolic murmur Peripheral Pulses: positive: 2+ Abdomen: positive: Non-tender, No organomegaly, Nml bowel sounds, No distention. negative: Tenderness, Guarding, Rebound Back: positive: Nml inspection. negative: CVA tenderness (R), CVA tenderness (L) Skin: positive: Color nml, No rash, Warm, Dry. negative: Cyanosis, Diaphoresis, Pallor Extremities: positive: Non-tender, Full ROM, Nml appearance. negative: Calf tenderness, Joint swelling, Ashlee's sign/cords Neurologic/Psychiatric: positive: Oriented x3, Motor nml, Sensation nml, Mood/affect nml. negative: Weakness, Sensory loss, Facial droop, Slurred/abnml speech, Depressed mood/affect - LABS Result Diagrams: 08/15/18 04:40 08/15/18 04:40 - SEPSIS Current Stage of Sepsis: Ruled out - FOLLOW UP Follow Up: you may followup your PCP in two weeks. You had 6 times of bowel movement and tolerated the diet. Your small bowel obstruction is resolved now. Should your symptoms return or worsen, you may present ER, call 911 or call your PCP for help. - TIME SPENT Time Spent in Discharge (Minutes): 50"
== END 2018-08-15 14:54 | disposition home or self-care (01) | DRG 389 ==
LOC: EDUNIT# → ED 16:09 → MS2 18:35
PROVIDERS: ADMIT Family Medicine Sports Medicine; ATTEND Nurse Practitioner Gerontology
DX: K56.609 Unspecified intestinal obstruction, unspecified as to partial versus complete obstruction (principal); E87.1 Hypo-osmolality and hyponatremia; I10 Essential (primary) hypertension; J44.9 Chronic obstructive pulmonary disease, unspecified; K21.9 Gastro-esophageal reflux disease without esophagitis; F41.9 Anxiety disorder, unspecified; F40.240 Claustrophobia; M19.90 Unspecified osteoarthritis, unspecified site; F17.200 Nicotine dependence, unspecified, uncomplicated; K52.9 Noninfective gastroenteritis and colitis, unspecified; K59.09 Other constipation; F17.210 Nicotine dependence, cigarettes, uncomplicated
CPT/HCPCS: 36415; 71045; 74019; 74177; 80048; 80053; 81001; 81003; 82607; 82728; 83540; 83615; 83690; 84466; 85025; 85027; 85044; 86850; 86900; 86901; 87086; 96361; 96374; 99283; 99284

== ENCOUNTER 2018-09-03 09:24 | Outpatient (CLI) | payer MEDICARE ==
[2018-09-03 18:39] LABS: BASOPHILS # (AUTO) 0.1 10^3/uL (0.0-0.1); BASOPHILS % (AUTO) 2.1 %; EOSINOPHILS # (AUTO) 0.1 10^3/uL (0.0-0.7); EOSINOPHILS % (AUTO) 2.7 %; HGB - HEMOGLOBIN 11.8 g/dL (14.0-18.0); LYMPHOCYTES # (AUTO) 1.4 10^3/uL (1.5-3.5); LYMPHOCYTES % (AUTO) 32.2 %; MEAN CORPUSCULAR HEMOGLOBIN 25.7 pg (27.0-31.0); MEAN CORPUSCULAR HGB CONC 32.7 g/dL (32.0-36.0); MEAN CORPUSCULAR VOLUME 78.6 fL (80.0-94.0); MEAN PLATELET VOLUME 6.5 fL (7.4-11.4); MONOCYTES # (AUTO) 0.4 10^3/uL (0.0-1.0); MONOCYTES % (AUTO) 9.5 %; NEUTROPHILS # (AUTO) 2.4 10^3/uL (1.5-6.6); NEUTROPHILS % (AUTO) 53.5 %; PLT - PLATELET COUNT 442 10^3/uL (130-450); RED BLOOD COUNT 4.58 10^6/uL (4.70-6.10); RED CELL DISTRIBUTION WIDTH 28.1 % (12.0-15.0); WHITE BLOOD COUNT 4.5 x10^3/uL (4.8-10.8)
[2018-09-03 18:44] LABS: CREATININE 0.5 mg/dL (0.6-1.2)
[2018-09-03 18:54] LABS: PLATELET ESTIMATE, MANUAL NORMAL (130-450,000) (NORMAL); PLATELET MORPHOLOGY NORMAL APPEARANCE (NORMAL)
== END 2018-09-03 09:25 | disposition home or self-care (01) ==
LOC: LAB.F 09:24
PROVIDERS: ATTEND Nurse Practitioner Family
DX: C49.4 Malignant neoplasm of connective and soft tissue of abdomen (principal); I10 Essential (primary) hypertension
CPT/HCPCS: 36415; 80048; 85025

== ENCOUNTER 2018-09-29 09:19 | Outpatient (CLI) | payer MEDICARE ==
[2018-09-29 17:53] LABS: BASOPHILS # (AUTO) 0.1 10^3/uL (0.0-0.1); BASOPHILS % (AUTO) 2.1 %; EOSINOPHILS # (AUTO) 0.1 10^3/uL (0.0-0.7); HGB - HEMOGLOBIN 12.4 g/dL (14.0-18.0); LYMPHOCYTES # (AUTO) 1.7 10^3/uL (1.5-3.5); LYMPHOCYTES % (AUTO) 37.2 %; MEAN CORPUSCULAR HEMOGLOBIN 27.5 pg (27.0-31.0); MEAN CORPUSCULAR HGB CONC 33.4 g/dL (32.0-36.0); MEAN CORPUSCULAR VOLUME 82.4 fL (80.0-94.0); MEAN PLATELET VOLUME 6.4 fL (7.4-11.4); MONOCYTES # (AUTO) 0.5 10^3/uL (0.0-1.0); MONOCYTES % (AUTO) 11.2 %; NEUTROPHILS # (AUTO) 2.1 10^3/uL (1.5-6.6); NEUTROPHILS % (AUTO) 47.5 %; PLT - PLATELET COUNT 400 10^3/uL (130-450); RED CELL DISTRIBUTION WIDTH 22.9 % (12.0-15.0); WHITE BLOOD COUNT 4.5 x10^3/uL (4.8-10.8)
[2018-09-29 18:01] LABS: CALCIUM 9.3 mg/dL (8.5-10.3); CREATININE 0.4 mg/dL (0.6-1.2)
[2018-09-29 18:07] LABS: PLATELET ESTIMATE, MANUAL NORMAL (130-450,000) (NORMAL); PLATELET MORPHOLOGY NORMAL APPEARANCE (NORMAL)
== END 2018-09-29 09:20 | disposition home or self-care (01) ==
LOC: LAB.F 09:19
PROVIDERS: ATTEND Nurse Practitioner Family
DX: E87.1 Hypo-osmolality and hyponatremia (principal); D50.9 Iron deficiency anemia, unspecified
CPT/HCPCS: 36415; 80048; 85025

== ENCOUNTER 2018-10-02 13:27 | Outpatient (CLI) | payer MEDICARE ==
[2018-10-02 17:56] LABS: CALCIUM 9.1 mg/dL (8.5-10.3); CREATININE 0.5 mg/dL (0.6-1.2)
== END 2018-10-02 13:28 | disposition home or self-care (01) ==
LOC: LAB.F 13:27
PROVIDERS: ATTEND Nurse Practitioner
DX: E87.1 Hypo-osmolality and hyponatremia (principal)
CPT/HCPCS: 36415; 80048

== ENCOUNTER 2018-10-05 10:07 | Outpatient (CLI) | payer MEDICARE ==
[2018-10-05 18:24] LABS: CALCIUM 9.5 mg/dL (8.5-10.3)
[2018-10-05 21:25] LABS: CREATININE 0.5 mg/dL (0.6-1.2)
== END 2018-10-05 10:08 | disposition home or self-care (01) ==
LOC: LAB.F 10:07
PROVIDERS: ATTEND Internal Medicine
DX: E87.1 Hypo-osmolality and hyponatremia (principal)
CPT/HCPCS: 36415; 80048; 84300

== ENCOUNTER 2018-10-30 09:39 | Outpatient (CLI) | payer MEDICARE ==
[2018-10-30 17:24] LABS: CALCIUM 9.5 mg/dL (8.5-10.3); CREATININE 0.5 mg/dL (0.6-1.2)
== END 2018-10-30 09:40 | disposition home or self-care (01) ==
LOC: LAB.F 09:39
PROVIDERS: ATTEND Internal Medicine
DX: E87.1 Hypo-osmolality and hyponatremia (principal)
CPT/HCPCS: 36415; 80048

== ENCOUNTER 2018-11-16 09:48 | Outpatient (CLI) | payer MEDICARE ==
[2018-11-16] MEDS ORDERED: IOVERSOL 320 50 ML VIAL ONE (10:16)
[2018-11-16] MEDS ORDERED: IOVERSOL 320 100 ML VIAL IVP ONE ×2 (10:16→16:32)
--- NOTE | 2018-11-16 15:32 | CT Report ---
Reason: ANEMIA,GASTROINTESTIRAL STROMAL NEOPLASM Procedure Date: 11/16/2018 Accession Number: [id number] / [id number] Procedure: CT - CHEST W CPT Code: FULL RESULT: EXAM: CT CHEST EXAM DATE: 11/16/2018 11:30 AM. CLINICAL HISTORY: ANEMIA,GASTROINTESTIRAL STROMAL NEOPLASM. COMPARISONS: None. TECHNIQUE: Routine helical CT imaging was performed through the chest. IV contrast: 90 cc of Optiray 320. Reconstructions: Coronal and sagittal. In accordance with CT protocol optimization, one or more of the following dose reduction techniques were utilized for this exam: automated exposure control, adjustment of mA and/or KV based on patient size, or use of iterative reconstructive technique. FINDINGS: Lungs/Pleura: There are emphysematous changes of the lungs. There is no focal infiltrate, pleural effusion or pneumothorax seen. Mediastinum: There is no evidence of a mediastinal mass or lymphadenopathy. There is atherosclerosis of the coronary arteries. Bones: Degenerative changes of the thoracic spine are noted. IMPRESSION: Emphysematous changes of the lungs. Atherosclerosis of the coronary arteries. RADIA
--- NOTE | 2018-11-16 15:45 | CT Report ---
Reason: ANEMIA,GASTROINTESTIRAL STROMAL NEOPLASM Procedure Date: 11/16/2018 Accession Number: [id number] / [id number] Procedure: CT - Abdomen/Pelvis W CPT Code: FULL RESULT: EXAM: CT ABDOMEN AND PELVIS EXAM DATE: 11/16/2018 11:27 AM. CLINICAL HISTORY: ANEMIA,GASTROINTESTIRAL STROMAL NEOPLASM. COMPARISONS: ABDOMEN/PELVIS W/ 08/12/2018 5:18 PM. TECHNIQUE: Routine helical CT imaging was performed through the abdomen and pelvis. IV contrast: OPTI 320 90mL. Enteric contrast: No. Reconstructions: Coronal and sagittal. In accordance with CT protocol optimization, one or more of the following dose reduction techniques were utilized for this exam: automated exposure control, adjustment of mA and/or KV based on patient size, or use of iterative reconstructive technique. FINDINGS: Solid organs: The liver, spleen, pancreas, and adrenal glands are normal in appearance. The kidneys are without evidence of a mass or hydronephrosis. Peritoneal Cavity/Bowel: The previously demonstrated marked thickening of the distal stomach is less apparent. The previously demonstrated dilated loops of small bowel are no longer dilated. The appendix is not clearly identified. There is no CT evidence of acute appendicitis. Pelvic Organs: No mass or cyst is seen within the pelvis. There is no periaortic or pelvic lymphadenopathy. Vasculature: There is atherosclerosis of the aorta and iliac arteries. Bones: There are degenerative changes of the thoracic and lumbar spine. Other: None. IMPRESSION: Marked interval decrease versus resolution of the previously demonstrated thickening of the distal stomach. Interval resolution of the dilated loops of small bowel. Atherosclerosis of the aorta and iliac arteries. RADIA
[2018-11-16] MEDS ORDERED: IOVERSOL 320 50 ML VIAL PO ONE (16:32)
== END 2018-11-16 09:49 | disposition home or self-care (01) ==
LOC: DI 09:48
PROVIDERS: ATTEND Internal Medicine Hematology & Oncology
DX: C49.4 Malignant neoplasm of connective and soft tissue of abdomen (principal); D64.9 Anemia, unspecified; I70.0 Atherosclerosis of aorta; I25.10 Atherosclerotic heart disease of native coronary artery without angina pectoris; J43.9 Emphysema, unspecified
CPT/HCPCS: 71260; 74177; Q9967

== ENCOUNTER 2018-12-04 11:08 | Outpatient (CLI) | payer MEDICARE ==
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
== END 2018-12-04 11:09 | disposition home or self-care (01) ==
LOC: PC 11:08
PROVIDERS: ATTEND Nurse Practitioner Adult Health
DX: Z51.5 Encounter for palliative care (principal); G89.21 Chronic pain due to trauma; M19.049 Primary osteoarthritis, unspecified hand; M25.512 Pain in left shoulder; M25.511 Pain in right shoulder; M54.2 Cervicalgia; M54.5 Low back pain; R51 Headache; M25.539 Pain in unspecified wrist; M79.672 Pain in left foot; R25.2 Cramp and spasm; L97.511 Non-pressure chronic ulcer of other part of right foot limited to breakdown of skin; D64.9 Anemia, unspecified; E63.9 Nutritional deficiency, unspecified; R63.0 Anorexia; F17.210 Nicotine dependence, cigarettes, uncomplicated; F41.0 Panic disorder [episodic paroxysmal anxiety]; G89.18 Other acute postprocedural pain; C49.A3 Gastrointestinal stromal tumor of small intestine; I10 Essential (primary) hypertension; J43.9 Emphysema, unspecified; K02.9 Dental caries, unspecified; Z77.090 Contact with and (suspected) exposure to asbestos; Z57.5 Occupational exposure to toxic agents in other industries; Z59.6 Low income; Z55.0 Illiteracy and low-level literacy; Z80.0 Family history of malignant neoplasm of digestive organs; Z79.1 Long term (current) use of non-steroidal anti-inflammatories (NSAID); Z63.72 Alcoholism and drug addiction in family; Z79.899 Other long term (current) drug therapy; Z63.8 Other specified problems related to primary support group; Z87.81 Personal history of (healed) traumatic fracture
CPT/HCPCS: 99205

== ENCOUNTER 2019-01-11 11:45 | Outpatient (CLI) | payer MEDICARE ==
--- NOTE | 2019-01-11 18:05 | CONSULTATION NOTE ---
Palliative Care Follow Up - Referral Referring Provider: Dr. 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 He has since started on imatinib. Only thing is noticed is a little bit more musculoskeletal discomfort, though in contrast to this he says is improved on the Mobic 7.5 mg twice daily. He has not had any GI symptoms, he has had a little bit of weight loss, reports some early satiety but is working at increasing his calories. He is challenged with significant number of financial stressors, as well as high anxiety. He does need assistance in managing appointments, understanding his diagnosis and treatment plan, has managed to decreased his cigarette smoking to 2 to 3 cigarettes a day. Palliative care providing support, as far as understanding diagnosis, navigating system, and anticipatory guidance. Social History - Living Situation Living arrangement: At home Living Situation: Alone Support System: Patient's main support is his dog khris, his been with him for 11 years. This does get him out he goes to the park frequently. He is only able to tolerate ambulating short distances at this point in time. He does have a sister Liz, but reports it is complicated relationship with her drinking. He has been in alcohol treatment 4 years ago, and tries to avoid any triggers. He is trying to "keep things straight". He does not participate in AA though. Medications/Allergies - Medications Home Medications: Ambulatory Orders Medication Instructions Recorded Confirmed amLODIPine [Norvasc] 5 mg PO DAILY 10/23/15 01/11/19 Omeprazole 40 mg PO DAILY 08/13/18 01/11/19 Albuterol Sulfate [Albuterol 1 inh PO Q4HR PRN 11/09/18 01/11/19 Sulfate Hfa] Acetaminophen [Tylenol Extra 1,000 mg PO BID 12/07/18 01/11/19 Strength] Ascorbic Acid [Vitamin C] 1 tab PO DAILY 12/07/18 01/11/19 Cholecalciferol (Vitamin D3) 1 tab PO DAILY 12/07/18 01/11/19 [Vitamin D3] Cyanocobalamin (Vitamin B-12) 1 tab PO DAILY 12/07/18 01/11/19 [Vitamin B-12 (100mcg tab)] Meloxicam 7.5 mg PO BID 12/07/18 01/11/19 Vitamin E 400 unit PO DAILY 01/04/19 01/11/19 - Allergies Allergies/Adverse Reactions: Allergies Allergy/AdvReac Type Severity Reaction Status Date / Time doxycycline Allergy Severe Edema Verified 12/21/18 15:26 lisinopril Allergy Severe Unknown Verified 12/21/18 15:26 trazodone Allergy Unknown Verified 12/21/18 15:26 NSAIDS (Non-Steroidal AdvReac Intermediate Gastric Verified 12/21/18 15:26 Anti-Inflamma upset aspirin AdvReac Unknown Verified 12/21/18 15:26 Review of Systems - Constitutional Constitutional: reports: Fatigue, Weight loss (117.6; up from 116 per report; goal 125). denies: Fever, Chills - Ears, Nose & Throat Ears, Nose & Throat: reports: Hearing loss, Dental decay, Dry mouth - Cardiovascular Cardiovascular: reports: Decr. exercise tolerance - Respiratory Respiratory: reports: SOB with exertion, Other (unable to tolerate nicotine patch; smoking 2-3 cigarettes a day). denies: SOB at rest - Gastrointestinal Gastrointestinal: reports: Early satiety. denies: Abdominal pain, Constipation, Nausea, Reflux/heartburn - Musculoskeletal Musculoskeletal: reports: Stiffness, Muscle weakness, Joint pain - Integumentary Integumentary: reports: Dryness - Neurological Neurological: reports: General weakness, Memory problems - Psychiatric Psychiatric: reports: Anxiety - All Other Systems All Other Systems: reports: Reviewed and negative Physical Exam - Vital Signs Pulse Rate: 95 Respiratory Rate: 18 O2 Saturation: 99 (ra @ rest) Blood Pressure: 123/69 - Physical Exam General Appearance: positive: Anxious Eyes Bilateral: positive: Normal inspection ENT: positive: No signs of dehydration Neck: positive: No JVD, Trachea midline Cardiovascular: positive: Regular rate & rhythm Respiratory: positive: Diminished throughout. negative: Wheezes, Rales, Rhonchi Abdomen: positive: Non-tender, Soft, Nml bowel sounds Skin: positive: Pallor, Dryness, Wound (seeing wound care for 5th toe wound) Neurologic/Psychiatric: positive: Oriented x3, Flat affect Palliative Care - POLST Patient has POLST: No POLST Status: Full Code Pain: Pain improved, Location (Patient's most of his pain is in his bilateral shoulder scapular area, his wrist, and his right ankle and toe. He is having his toe ulcer treated. He is taking the Mobic 7.5 mg in a.m., occasionally at night supplemented by acetaminophen 1000 mg twice daily.) Tiredness/Fatigue: None Drowsiness/Sedation: None, Mild (1-3) Nausea: None (some in am on arising) Depression: None Anxiety: Moderate (4-6) Dyspnea: Mild (1-3) Anorexia: Mild (1-3) Sleep: Sleeps well Constipation: No Feelings of wellbeing/Perceived Quality of Life: Good, Acceptable, Improved Performance Status: Patient is able to manage his own ADLs, he is driving. He does feel at times though when he is more fatigued it would be nice to have transportation. 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 He reports he used to walk at least 1 mile a day, now is closer to a quarter of a mile. He does walk short frequent periods to be able to walk his dog. He does report feeling overall fairly bored - Palliative Care Discussion: Patient is very frightened by his cancer diagnosis, he reports he talks to it about every 1, has been praying for him. This does provide him comfort. He reports his long-term been anxious, is trying to stay out of trouble, he has had difficulty with alcohol in the past. He is trying to avoid being around his old friends that added to this. He reports he is only drinking Kahla and his breakfast coffee only. He is trying to stay active, trying to do his art. He does feel overwhelmed at times navigating the system. He does have friends and neighbors, who are helping him but they have their own stressors as well. He reports his something serious were to happen he would count on his Sister Liz, but does not feel it would be a good move on his part to be with her full-time. Discussed at length DPOAE and the role, this makes him quite anxious. We will continue to explore and further define these as patient able to with his level of anxiety. Impression and Recommendations - Palliative Care Impression: This is a 58-year-old gentleman with small bowel gastrointestinal stromal tumor, with a recent small bowel resection in 07/2018. Patient has started his adjuvant treatment of imatinib. Patient does have high risk, and presents with minimal social support and financial and social stressors. Palliative care to continue provide support, assist with navigation of the system, and anticipatory guidance. Recommendations/Counseling Done: 1. Weight loss. This is multifactorial, regarding finances and access to nutritional food choices. Prescription sent off to [facility], for Ensure, the will provide at a reduced rate. This information was provided for the patient, he does feel like he can pick it up versus have it delivered. Encouraged to drink 1-2 daily. 2. Chronic pain, multifactorial in origin. Patient has had some improvement on meloxicam 7.5 mg daily, does take at bedtime. Patient has continued his nikhil taminophen 1000 mg twice daily, does feel the balance is working. 3. Fatigue, this again is multifactorial in origin. Patient is continuing with his activity, his daily walking of his dog. We did food again nutritional and fluid intake. 4. Tobacco abuse. Patient had wanted to try nicotine patches, he attributes to increased pain in his left shoulder where he had his patch. Decided he did not want to continue this, reinforcement given for decreasing total number to 2 to 3 cigarettes a day. 5. Nonpressure chronic ulcer, he is due to see the publication specialist today. Patient reports continued discomfort in the area. 6 skin scab remains over area. 6. Anxiety. Patient continues to feel somewhat overwhelmed, continue gentle counseling regarding diagnosis, treatment plan, has been taking medication. He has been able to be compliant. Worried about transportation, will send paratran[employer]adyt application in, as well as given the number for senior volunteer drivers. 7. Advanced care planning. Patient without any advanced care planning documents, did make the decision to choose his sister. Will get final address, his neighbor's follow-up. We will continue to explore goals of care and documented record. Patient gets quite anxious when talking about cancer diagnosis so have to tread lightly. Patient currently not receiving NEGATIVE NOTCHER support through clinic, will make a referral to palliative care social insurance administrator for ongoing support and navigation. Time Spent: 45 minutes was given 50% of this done in counseling regarding response to medication, medication compliance, advanced care planning, pain and symptom management and navigating care needs.
== END 2019-01-11 11:46 | disposition home or self-care (01) ==
LOC: PC 11:45
PROVIDERS: ATTEND Nurse Practitioner Adult Health
DX: Z51.5 Encounter for palliative care (principal); R63.4 Abnormal weight loss; G89.29 Other chronic pain; M25.512 Pain in left shoulder; M25.511 Pain in right shoulder; M25.539 Pain in unspecified wrist; M25.571 Pain in right ankle and joints of right foot; M79.642 Pain in left hand; M79.641 Pain in right hand; R53.83 Other fatigue; L97.519 Non-pressure chronic ulcer of other part of right foot with unspecified severity; F41.9 Anxiety disorder, unspecified; C49.A0 Gastrointestinal stromal tumor, unspecified site; R68.81 Early satiety; Z79.899 Other long term (current) drug therapy; Z79.1 Long term (current) use of non-steroidal anti-inflammatories (NSAID); Z72.0 Tobacco use; Z87.898 Personal history of other specified conditions; Z90.49 Acquired absence of other specified parts of digestive tract; Z60.2 Problems related to living alone; Z59.6 Low income
CPT/HCPCS: 99214

== ENCOUNTER 2019-01-19 12:05 | Outpatient (CLI) | payer MEDICARE ==
[2019-01-19 18:21] LABS: CREATININE 0.6 mg/dL (0.6-1.2)
== END 2019-01-19 12:06 | disposition home or self-care (01) ==
LOC: LAB.F 12:05
PROVIDERS: ATTEND Internal Medicine
DX: E87.1 Hypo-osmolality and hyponatremia (principal)
CPT/HCPCS: 36415; 80048; 84300

== ENCOUNTER 2019-06-15 13:07 | Outpatient (CLI) | payer MEDICARE ==
[2019-06-15] MEDS ORDERED: IOVERSOL 320 50 ML VIAL ONE (14:28)
[2019-06-15] MEDS ORDERED: IOVERSOL 320 100 ML VIAL IVP ONE ×2 (14:28→15:56)
[2019-06-15] MEDS ORDERED: IOVERSOL 320 50 ML VIAL PO ONE (15:56)
--- NOTE | 2019-06-16 10:48 | CT Report ---
Reason: GI STROMAL TUMOR Procedure Date: 06/15/2019 Accession Number: [id number] / [id number] Procedure: CT - Abdomen/Pelvis W CPT Code: Final Report FULL RESULT: EXAM: CT ABDOMEN AND PELVIS EXAM DATE: 06/15/2019 03:53 PM. CLINICAL HISTORY: GI STROMAL TUMOR. COMPARISONS: ABDOMEN/PELVIS W/ 11/16/2018 11:27 AM. TECHNIQUE: Routine helical CT imaging was performed through the abdomen and pelvis. IV contrast: OPTI 320 100ML. Enteric contrast: No. Reconstructions: Coronal and sagittal. In accordance with CT protocol optimization, one or more of the following dose reduction techniques were utilized for this exam: automated exposure control, adjustment of mA and/or KV based on patient size, or use of iterative reconstructive technique. FINDINGS: Lung Bases: The lung bases are without evidence of mass or infiltrate. Solid organs: The liver, spleen, pancreas, and adrenal glands are without evidence of an enhancing mass. Kidneys are without evidence of a mass or hydronephrosis. Peritoneal Cavity/Bowel: The gastric wall appears prominent. No discrete masses identified. There are no dilated loops of bowel to suggest the presence of an obstruction. There is no evidence of appendicitis, diverticulosis or diverticulitis. Pelvic Organs: No mass or cyst is seen within the pelvis. There is no periaortic or pelvic lymphadenopathy. Vasculature: There is atherosclerosis of the aorta and its branches. There is no evidence of an abdominal aortic aneurysm. Bones: There are degenerative changes of the thoracic and lumbar spine. IMPRESSION: Prominent gastric wall without evidence of a discrete mass. Recommend GI consult for further evaluation. Atherosclerosis of the aorta and its branches. RADIA
== END 2019-06-15 13:08 | disposition home or self-care (01) ==
LOC: DI 13:07
PROVIDERS: ATTEND Physician Assistant
DX: C49.A3 Gastrointestinal stromal tumor of small intestine (principal); I70.0 Atherosclerosis of aorta
CPT/HCPCS: 74177; Q9967

== ENCOUNTER 2023-04-24 14:11 | Emergency (ER) | payer MEDICARE ==
[2023-04-24] MEDS ORDERED: HYDROmorphone 1 MG/ML CARPUJECT IVP STA (14:21)
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
[2023-04-24 14:33] LABS: BASOPHILS % (AUTO) 0.9 %; EOSINOPHILS # (AUTO) 0.1 10^3/uL (0.0-0.7); EOSINOPHILS % (AUTO) 1.5 %; HCT - HEMATOCRIT 32.5 % (42.0-52.0); HGB - HEMOGLOBIN 11.4 g/dL (14.0-18.0); LYMPHOCYTES # (AUTO) 1.8 10^3/uL (1.5-3.5); LYMPHOCYTES % (AUTO) 38.3 %; MEAN CORPUSCULAR HEMOGLOBIN 34.1 pg (27.0-31.0); MEAN CORPUSCULAR HGB CONC 35.1 g/dL (32.0-36.0); MEAN CORPUSCULAR VOLUME 97.3 fL (80.0-94.0); MEAN PLATELET VOLUME 8.7 fL (7.4-11.4); MONOCYTES # (AUTO) 0.3 10^3/uL (0.0-1.0); MONOCYTES % (AUTO) 6.1 %; NEUTROPHILS # (AUTO) 2.4 10^3/uL (1.5-6.6); PLT - PLATELET COUNT 217 10^3/uL (130-450); RED BLOOD COUNT 3.34 10^6/uL (4.70-6.10); RED CELL DISTRIBUTION WIDTH 12.7 % (12.0-15.0); WHITE BLOOD COUNT 4.6 x10^3/uL (4.8-10.8)
[2023-04-24] MEDS ORDERED: SODIUM CHLORIDE 0.9% 1,000 ML IV STA (14:34)
[2023-04-24 14:44] LABS: INR 1.1 (0.8-1.2); PT - PROTHROMBIN TIME 11.9 secs (9.9-12.6)
[2023-04-24 14:56] LABS: ALBUMIN 4.3 g/dL (3.2-5.5); ALBUMIN/GLOBULIN RATIO 1.6 (1.0-2.2); BILIRUBIN,TOTAL 0.6 mg/dL (0.2-1.0); CREATININE 0.8 mg/dL (0.6-1.2); POTASSIUM 3.1 mmol/L (3.5-5.0)
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
[2023-04-24] MEDS ORDERED: POTASSIUM BICARB 25 MEQ TABLET PO STA (15:16)
[2023-04-24] MEDS ORDERED: PROCHLORPERAZINE 10 MG/2 ML VIAL IVP STA (15:30)
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
--- OUTSIDE RECORDS SUMMARY | 2023-04-24 16:41 | EXTERNAL MEDICAL SUMMARY RPT | Continuity of Care Document ---
Author Name Unknown Address [address] [place] [address] Phone Organization [facility] Address [address] [place] [address] Phone Care Team Providers Care Council Member Name Role Phone Unavailable Unavailable Unavailable Toyin, Provider Unavailable Unavailable Problems date description facility 2023-04-24 00:00 Alcohol abuse All 2023-04-24 00:00 Degenerative joint disease invo lving multiple joints All 2023-04-24 00:00 Alcoholic gastritis All 2023-04-24 00:00 Mixed anxiety and depressive di sorder All 2023-04-24 00:00 Gastroesophageal reflux disease All 2023-04-24 00:00 Idiopathic osteoarthritis All 2023-04-24 00:00 Dysthymic disorder All 2023-04-24 00:00 Mild chronic obstructive pulmon james disease All 2023-04-24 00:00 Hypertensive disorder All 2023-04-24 00:00 Benign essential hypertension A ll 2023-04-24 00:00 Chronic airway obstruction, not elsewhere classified All 2023-04-24 00:00 Esophageal reflux All 2023-04-24 00:00 Alcoholic gastritis, without me ntion of hemorrhage All 2023-04-24 00:00 Irritable bowel syndrome All 2023-04-24 00:00 Osteoarthrosis, generalized, in volving unspecified site All 2023-04-24 00:00 Osteoarthrosis, loca lized, primary, involving shoulder region All 2023-04-24 00:00 Alcohol abuse with intoxication , uncomplicated All 2023-04-24 00:00 Other specified anxiety disorde rs All 2023-04-24 00:00 Essential (primary) hypertensio n All 2023-04-24 00:00 Chronic obstructive pulmonary d isease, unspecified All 2023-04-24 00:00 Gastro-esophageal reflux diseas e without esophagitis All 2023-04-24 00:00 Alcoholic gastritis without ble eding All 2023-04-24 00:00 Irritable bowel syndrome withou t diarrhea All 2023-04-24 00:00 Polyosteoarthritis, unspecified All 2023-04-24 00:00 Primary osteoarthritis, right s houlder All Results/Labs test date facility value unit notes Social History date description facility
[2023-04-24] MEDS ORDERED: iohexoL-300 100 ML VIAL IVP ONE (17:01)
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
[2023-04-24 20:01] VITALS: BP 164/81; O2SAT 98
== END 2023-04-24 19:53 | disposition home or self-care (01) ==
LOC: EDUNIT# → ED 14:11
DX: S89.92XA Unspecified injury of left lower leg, initial encounter (principal); S89.91XA Unspecified injury of right lower leg, initial encounter; J43.2 Centrilobular emphysema; I10 Essential (primary) hypertension; Z87.19 Personal history of other diseases of the digestive system; F17.200 Nicotine dependence, unspecified, uncomplicated
CPT/HCPCS: 36415; 70450; 71045; 71260; 72125; 73565; 74177; 80053; 83690; 85025; 85610; 86850; 86900; 86901; 93005; 96374; 96375; 99284; A9270; J1170; Q9967; 84484